=== PATIENT | male | born 1940 | race Two or more races ===

== ENCOUNTER 2016-07-23 08:42 | Inpatient (IN) | payer MEDICARE, BC ==
[2016-07-23] MEDS ORDERED: METOCLOPRAMIDE 5 MG/ML 2 ML VIAL IVP STA (09:00)
[2016-07-23] MEDS ORDERED: SODIUM CHLORIDE 0.9% 1,000 ML IV STA ×2 (09:00)
[2016-07-23] MEDS ORDERED: RX INFO: IV CONTRAST WAS GIVEN 1 EACH MISC MISCELLANE PRN (09:03)
--- NOTE | 2016-07-23 09:05 | ED ---
General Adult HPI - General Chief complaint: Nausea/Vomiting/Diarrhea Stated complaint: vomiting Time Seen by Provider: 07/23/16 08:54 Source: patient, family, RN notes reviewed Mode of arrival: wheelchair Limitations: language barrier - History of Present Illness Initial comments: 76 yo male presents to the Er with cc of vomiting. Patient is mentally handicapped per the sister he is at baseline. He has been having vomiting for the past 12 hours or so. He just continues to vomit. Patient is unable to explain or He is unable to give a history. He did recently undergo surgery of the abdomen for a possible obstruction. This was done on July 16. They deny any fever in him. He has had sweating with this. As well as pickups. The sister states that he just continues to vomit so she did not know what else that she could do for him.Patient denies any recent fever, chills, shortness of breath, chest pain, back pain, numbness or tingling, dysuria or hematuria, constipation or diarrhea, headaches or visual changes, or any other current symptoms. - Related Data Home Medications Medication Instructions Recorded Confirmed Ensure 1 can PO AC-TID 07/23/16 07/23/16 Previous Rx's Medication Instructions Recorded Amoxicillin 1,000 mg PO BID #36 cap 07/16/16 Clarithromycin [Biaxin] 500 mg PO BID #18 tab 07/16/16 Pantoprazole [Protonix] 40 mg PO AC-BID #60 tablet. 07/16/16 Allergies Allergy/AdvReac Type Severity Reaction Status Date / Time No Known Allergies Allergy Verified 07/23/16 09:48 Review of Systems ROS Statement: Those systems with pertinent positive or pertinent negative responses have been documented in the HPI. ROS Other: All systems not noted in ROS Statement are negative. Past Medical History Past Medical History: Pneumonia Additional Past Medical History / Comment(s): ALLERGIES/\\SEASONAL SISTER DENIES ANY HEALTH PROBLEMS History of Any Multi-Drug Resistant Organisms: None Reported Additional Past Surgical History / Comment(s): TOENAILS, "gastric outlet surgery " Past Anesthesia/Blood Transfusion Reactions: No Reported Reaction Additional Past Anesthesia/Blood Transfusion Reaction / Comment(s): NEVER HAD ANESTHESIA Past Psychological History: No Psychological Hx Reported Additional Psychological History / Comment(s): EXCITABLE. Smoking Status: Never smoker Past Alcohol Use History: None Reported Past Drug Use History: None Reported - Past Family History Father Family Medical History: CVA/TIA Additional Family Medical History / Comment(s): "HEART DISEASE" General Exam - General Exam Comments Initial Comments: General: The patient is awake and alert, in no distress, and does not appear acutely ill. Eye: Pupils are equal, round and reactive to light, extra-ocular movements are intact; there is normal conjunctiva bilaterally. No signs of icterus. Ears, nose, mouth and throat: There are moist mucous membranes. Neck: The neck is supple, there is no tenderness. Cardiovascular: There is a regular rate and rhythm. No murmur, rub or gallop is appreciated. Respiratory: Lungs are clear to auscultation, respirations are non-labored, breath sounds are equal. No wheezes, stridor, rales, or rhonchi. Gastrointestinal: Soft, distended, non-tender abdomen without masses or organomegaly noted. There is no rebound or guarding present. No CVA tenderness. Bowel sounds are unremarkable. Back: There is no tenderness to palpation in the midline. There is no obvious deformity. No rashes noted. Musculoskeletal: Normal ROM, no tenderness, There is no pedal edema. There is no calf tenderness or swelling. Sensation intact. Pulses equal bilaterally 2+. Neurological: CN II-XII intact, There are no obvious motor or sensory deficits. Coordination appears grossly intact. Speech is normal. Skin: Skin is warm and dry and no rashes or lesions are noted. Psychiatric: Cooperative, appropriate mood & affect, normal judgment. Limitations: language barrier Course Vital Signs 07/23/16 08:46 Temperature 97.3 F L Pulse Rate 94 Respiratory 17 Rate Blood Pressure 132/76 O2 Sat by Pulse 93 L Oximetry EKG Findings - EKG Comments: EKG Findings:: (Rhythm with premature supraventricular complexes, ventricular rate 79, creatinine 170, QRS duration 96 Medical Decision Making - Medical Decision Making 76-year-old male presents to emergency room chief complaint of nausea vomiting with a distended abdomen. At this time patient's x-rays reviewed that does show bilateral pneumonia and patient was recently admitted to the hospital. We will start the patient on hospital for pneumonia protocol. Patient is also found to have a obstruction on CT NG tube was placed and Dr. Murphy was contacted regarding Dr. jefferson's patient. This time we will admit and consult Dr. Hyman per Dr. Banuelos's request. The patient and family were discussed with this plan and they are in agreement. We will consult our Lithuanian who was seen patient has prominent consult in the past as well as Dr. Rodriguez R4 Dr. Ozuna for medical management. - Lab Data Result diagrams: 07/23/16 09:10 07/23/16 09:10 Lab Results 07/23/16 07/23/16 07/23/16 Range/Units 09:10 09:10 09:10 WBC 14.8 H (3.8-10.6) k/uL RBC 5.01 (4.30-5.90) m/uL Hgb 15.3 (13.0-17.5) gm/dL Hct 44.5 (39.0-53.0) % MCV 88.8 (80.0-100.0) fL MCH 30.5 (25.0-35.0) pg MCHC 34.4 (31.0-37.0) g/dL RDW 13.5 (11.5-15.5) % Plt Count 318 (150-450) k/uL Neutrophils % 90 % Lymphocytes % 3 % Monocytes % 4 % Eosinophils % 1 % Basophils % 1 % Neutrophils # 13.3 H (1.3-7.7) k/uL Lymphocytes # 0.5 L (1.0-4.8) k/uL Monocytes # 0.7 (0-1.0) k/uL Eosinophils # 0.1 (0-0.7) k/uL Basophils # 0.2 (0-0.2) k/uL PT (9.0-12.0) sec INR (<1.1) APTT (22.0-30.0) sec Sodium 129 L (137-145) mmol/L Potassium 4.4 (3.5-5.1) mmol/L Chloride 89 L (98-107) mmol/L Carbon Dioxide 27 (22-30) mmol/L Anion Gap 13 mmol/L BUN 34 H (9-20) mg/dL Creatinine 0.70 (0.66-1.25) mg/dL Est GFR (MDRD) Af Amer >60 (>60 ml/min/1.73 sqM) Est GFR (MDRD) Non-Af >60 (>60 ml/min/1.73 sqM) Glucose 137 H (74-99) mg/dL Plasma Lactic Acid Yonathan (0.7-2.0) mmol/L Calcium 9.6 (8.4-10.2) mg/dL Magnesium 2.2 (1.6-2.3) mg/dL Total Bilirubin 0.9 (0.2-1.3) mg/dL AST 34 (17-59) U/L ALT 36 (21-72) U/L Alkaline Phosphatase 73 (38-126) U/L Total Creatine Kinase 48 L (55-170) U/L CK-MB (CK-2) 1.3 (0.0-2.4) ng/mL CK-MB (CK-2) Rel Index 2.7 Troponin I <0.012 (0.000-0.034) ng/mL Total Protein 6.9 (6.3-8.2) g/dL Albumin 4.0 (3.5-5.0) g/dL Amylase 61 (30-110) U/L Lipase 201 (23-300) U/L 07/23/16 07/23/16 Range/Units 09:10 09:10 WBC (3.8-10.6) k/uL RBC (4.30-5.90) m/uL Hgb (13.0-17.5) gm/dL Hct (39.0-53.0) % MCV (80.0-100.0) fL MCH (25.0-35.0) pg MCHC (31.0-37.0) g/dL RDW (11.5-15.5) % Plt Count (150-450) k/uL Neutrophils % % Lymphocytes % % Monocytes % % Eosinophils % % Basophils % % Neutrophils # (1.3-7.7) k/uL Lymphocytes # (1.0-4.8) k/uL Monocytes # (0-1.0) k/uL Eosinophils # (0-0.7) k/uL Basophils # (0-0.2) k/uL PT 11.9 (9.0-12.0) sec INR 1.2 (<1.1) APTT 23.8 (22.0-30.0) sec Sodium (137-145) mmol/L Potassium (3.5-5.1) mmol/L Chloride (98-107) mmol/L Carbon Dioxide (22-30) mmol/L Anion Gap mmol/L BUN (9-20) mg/dL Creatinine (0.66-1.25) mg/dL Est GFR (MDRD) Af Amer (>60 ml/min/1.73 sqM) Est GFR (MDRD) Non-Af (>60 ml/min/1.73 sqM) Glucose (74-99) mg/dL Plasma Lactic Acid Yonathan 1.3 (0.7-2.0) mmol/L Calcium (8.4-10.2) mg/dL Magnesium (1.6-2.3) mg/dL Total Bilirubin (0.2-1.3) mg/dL AST (17-59) U/L ALT (21-72) U/L Alkaline Phosphatase (38-126) U/L Total Creatine Kinase (55-170) U/L CK-MB (CK-2) (0.0-2.4) ng/mL CK-MB (CK-2) Rel Index Troponin I (0.000-0.034) ng/mL Total Protein (6.3-8.2) g/dL Albumin (3.5-5.0) g/dL Amylase (30-110) U/L Lipase (23-300) U/L - Radiology Data Radiology results: report reviewed, image reviewed Disposition Clinical Impression: Small bowel obstruction, Pneumonia of both lower lobes, Nausea and vomiting Disposition: ADMITTED IP TO [facility] Condition: Stable Time of Disposition: 11:24 Decision Date: 07/23/16 Decision Time: 11:25
[2016-07-23 09:23] LABS: Basophils # (A) 0.2 k/uL (0-0.2); Basophils % (A) 1 %; CH 31.2; CHCM 35.3; Eosinophils # (A) 0.1 k/uL (0-0.7); Eosinophils % (A) 1 %; HCT 44.5 % (39.0-53.0); HDW 2.61; HGB 15.3 gm/dL (13.0-17.5); Luc # (Auto) 0.15; Luc % (Auto) 1; Lymphocytes # (A) 0.5 k/uL (1.0-4.8); Lymphocytes % (A) 3 %; MCH 30.5 pg (25.0-35.0); MCHC 34.4 g/dL (31.0-37.0); MCV 88.8 fL (80.0-100.0); Mean Platelet Volume 7.4; Monocytes # (A) 0.7 k/uL (0-1.0); Monocytes % (A) 4 %; Neutrophils # (A) 13.3 k/uL (1.3-7.7); Neutrophils % (A) 90 %; RBC 5.01 m/uL (4.30-5.90); RDW 13.5 % (11.5-15.5); WBC 14.8 k/uL (3.8-10.6); WBC (Perox) 15.28
[2016-07-23 09:32] LABS: INR 1.2 (<1.1); Partial Thromboplastin Time 23.8 sec (22.0-30.0); Prothrombin Time 11.9 sec (9.0-12.0)
[2016-07-23 09:34] LABS: ALT 36 U/L (21-72); AST 34 U/L (17-59); Alkaline Phosphatase 73 U/L (38-126); Amylase 61 U/L (30-110); Anion Gap 13 mmol/L; Blood Urea Nitrogen 34 mg/dL (9-20); Calcium 9.6 mg/dL (8.4-10.2); Carbon Dioxide 27 mmol/L (22-30); Chloride 89 mmol/L (98-107); Glucose 137 mg/dL (74-99); Magnesium 2.2 mg/dL (1.6-2.3); Non-African American GFR(MDRD) >60 (>60 ml/min/1.73 sqM); Potassium 4.4 mmol/L (3.5-5.1); Sodium 129 mmol/L (137-145); Total Bilirubin 0.9 mg/dL (0.2-1.3); Total Protein 6.9 g/dL (6.3-8.2)
[2016-07-23 09:43] LABS: Creatine Kinase 48 U/L (55-170)
--- NOTE | 2016-07-23 09:53 | XR ---
EXAMINATION TYPE: XR chest 2V DATE OF EXAM: 07/23/2016 9:47 AM COMPARISON: NONE HISTORY: Chest pain FINDINGS: There is bilateral infiltrate. No pneumothorax. Heart problems of normal. Upper mediastinum is promin ent there is ectasia of the aorta. Hypertrophic and degenerative change spine.. IMPRESSION: 1. Bilateral lower lobe infiltrate. 2. Upper mediastinal prominence. Consider follow-up CT scan.
[2016-07-23 09:56] LABS: Creatine Kinase MB 1.3 ng/mL (0.0-2.4); Troponin I <0.012 ng/mL (0.000-0.034)
[2016-07-23] MEDS ORDERED: LEVOFLOXACIN 750MG-D5W PMX 750 MG in DEXTROSE/WATER 1 150ML.BAG IVPB STA (10:03)
[2016-07-23] MEDS ORDERED: PIPERACILLIN-TAZOBACTAM 3.375 GM in DEXTROSE/WATER 1 50ML.BAG IVPB STA (10:17)
--- NOTE | 2016-07-23 10:41 | CT ---
EXAMINATION TYPE: CT abdomen pelvis w con DATE OF EXAM: 07/23/2016 10:10 AM COMPARISON: Upper GI July 13, 2016 HISTORY: Vomiting and hiccups status post abdominal obstruction surgery last week CONTRAST: CT scan of the abdomen and pelvis is performed without oral but with IV Contrast, patient injected wi th 100 mL of Omnipaque 300. FINDINGS: LUNG BASES: Respiratory motion artifact is noted making evaluation suboptimal. Bilateral gynecomastia is present. Mild cardiomegaly is identified. Right lower lobe dependent atelectatic change is seen. LIVER/GB: Gallbladder has distended margins without surrounding inflammatory change or CT demonstrate s intraluminal gallstones. PANCREAS: No significant abnormality is seen. SPLEEN: No significant abnormality is seen. ADRENALS: No significant abnormality is seen. KIDNEYS: A few small simple appearing cysts are scattered throughout the left kidney. Bladder is some what poorly distended and thus suboptimally evaluated. BOWEL: There is new fluid filled dilated visualized esophagus. There is new fluid filled dilated stom ach extending into fluid-filled dilated duodenal sweep. Duodenal jejunal junction is not at cranial l evel of the gastric antrum, proximal duodenum is fluid-filled and dilated in the right mid to lower a bdomen. There is slight twisting of the mesentery in the right midabdomen seen on coronal images. Und erlying malrotation is not excluded. There is linear density at level of gastric antrum felt to reflect sutures seen best on axial image 4 4 consistent with partial gastrectomy. Dilated fluid-filled jejunal loop extends near this level in t he right upper quadrant near hepatic flexure appears to have direct connection with stomach system wi th patient's history of gastrojejunostomy. This appears contiguous with the dilated fluid-filled duod enal sweep and proximal jejunum. Occupying the remainder of the abdomen and pelvis is nondilated small and large bowel loops.. Fecal m aterial is seen in nondistended colon. SMA/SMV relationship is preserved. PROSTATE/SEMINAL VESICLES: Prostate gland is heterogeneous in appearance since felt slightly enlarged in size, clinical correlation for BPH is advised. Adjacent pelvic phleboliths are seen. LYMPH NODES: No greater than 1cm abdominal or pelvic lymph nodes are appreciated. OSSEOUS STRUCTURES: Multilevel spurring in the spine is present. OTHER: No significant additional abnormality is seen. IMPRESSION: High-grade small bowel obstruction in the proximal jejunum without outlet to the distal bowel clearly identified. There is appearance on CT there is closed-loop of stomach to duodenal sweep into duodenum which then goes back into stomach (gastrojejunostomy). I do not see efferent loop well at all. 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 Corre lation with surgical history advised. Nasogastric tube placement and surgical consultation advised. Case discussed with ER physician via telephone at time of dictation.
[2016-07-23] MEDS ORDERED: LORazepam 2 MG/ML SYRINGE IV STA (10:47)
[2016-07-23] MEDS ORDERED: PNEUMONIA PROTOCOL UTILIZED 1 EACH MISC PO PRN (11:25)
[2016-07-23] MEDS ORDERED: IPRATROPIUM-ALBUTEROL 3 ML NEB INHALATION PRN (11:25)
[2016-07-23] MEDS ORDERED: LORazepam 2 MG/ML SYRINGE IV PRN (11:27)
[2016-07-23] MEDS ORDERED: HYDROcodone/APAP 5-325MG 1 EACH TAB PO PRN (11:27)
[2016-07-23] MEDS ORDERED: ONDANSETRON 4 MG/2 ML VIAL IVP PRN (11:27)
[2016-07-23] MEDS ORDERED: NALOXONE 0.4 MG/ML 1 ML VIAL IV PRN (11:27)
[2016-07-23] MEDS ORDERED: PANTOPRAZOLE 40 MG/10 ML VIAL IVP STA (11:28)
--- NOTE | 2016-07-23 11:38 | P.GSHP ---
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 His sister called yesterday because he hadn't been eating or drinking well. I recommended decreasing his diet back to clear and full liquids and go to the ER if he continues to have problems. She brought him in today. He had x-ray done along with CAT scan suggestive of a obstruction. An NG tube is been placed. - Review of Systems All systems: negative Past Medical History Past Medical History: Pneumonia Additional Past Medical History / Comment(s): ALLERGIES/\\SEASONAL SISTER DENIES ANY HEALTH PROBLEMS History of Any Multi-Drug Resistant Organisms: None Reported Additional Past Surgical History / Comment(s): TOENAILS, gastrojejunostomy for outlet obstruction Past Anesthesia/Blood Transfusion Reactions: No Reported Reaction Additional Past Anesthesia/Blood Transfusion Reaction / Comment(s): NEVER HAD ANESTHESIA Past Psychological History: No Psychological Hx Reported Additional Psychological History / Comment(s): EXCITABLE. Smoking Status: Never smoker Past Alcohol Use History: None Reported Past Drug Use History: None Reported - Past Family History Father Family Medical History: CVA/TIA Additional Family Medical History / Comment(s): "HEART DISEASE" Medications and Allergies Home Medications Medication Instructions Recorded Confirmed Type Ensure 1 can PO AC-TID 07/23/16 07/23/16 History Allergies Allergy/AdvReac Type Severity Reaction Status Date / Time No Known Allergies Allergy Verified 07/23/16 09:48 Surgical - Exam Osteopathic Statement: *. No significant issues noted on an osteopathic structural exam other than those noted in the History and Physical/Consult. Vital Signs Temp Pulse Resp BP Pulse Ox 97.3 F L 94 17 132/76 93 L 07/23/16 08:46 07/23/16 08:46 07/23/16 08:46 07/23/16 08:46 07/23/16 08:46 - General no distress, other (Fairly somnolent) - ENT other (Dry mucous membranes) - Neck trachea midline, no lymphadectomy - Respiratory normal respiratory effort, clear to auscultation absent: wheezing - Cardiovascular Rhythm: regular - Abdomen Abdomen: soft, tender (Incisional), bowel sounds (Hypoactive), surgical scars ( Healing well without cellulitis) Results - Labs 07/23/16 09:10 12/26/16 09:10 Abnormal Lab Results - Last 24 Hours (Table) 07/23/16 07/23/16 07/23/16 Range/Units 09:10 09:10 09:10 WBC 14.8 H (3.8-10.6) k/uL Neutrophils # 13.3 H (1.3-7.7) k/uL Lymphocytes # 0.5 L (1.0-4.8) k/uL Sodium 129 L (137-145) mmol/L Chloride 89 L (98-107) mmol/L BUN 34 H (9-20) mg/dL Glucose 137 H (74-99) mg/dL Total Creatine Kinase 48 L (55-170) U/L Diabetes panel 07/23/16 Range/Units 09:10 Sodium 129 L (137-145) mmol/L Potassium 4.4 (3.5-5.1) mmol/L Chloride 89 L (98-107) mmol/L Carbon Dioxide 27 (22-30) mmol/L BUN 34 H (9-20) mg/dL Creatinine 0.70 (0.66-1.25) mg/dL Glucose 137 H (74-99) mg/dL Calcium 9.6 (8.4-10.2) mg/dL AST 34 (17-59) U/L ALT 36 (21-72) U/L Alkaline Phosphatase 73 (38-126) U/L Total Protein 6.9 (6.3-8.2) g/dL Albumin 4.0 (3.5-5.0) g/dL Calcium panel 07/23/16 Range/Units 09:10 Calcium 9.6 (8.4-10.2) mg/dL Albumin 4.0 (3.5-5.0) g/dL Pituitary panel 07/23/16 Range/Units 09:10 Sodium 129 L (137-145) mmol/L Potassium 4.4 (3.5-5.1) mmol/L Chloride 89 L (98-107) mmol/L Carbon Dioxide 27 (22-30) mmol/L BUN 34 H (9-20) mg/dL Creatinine 0.70 (0.66-1.25) mg/dL Glucose 137 H (74-99) mg/dL Calcium 9.6 (8.4-10.2) mg/dL Adrenal panel 07/23/16 Range/Units 09:10 Sodium 129 L (137-145) mmol/L Potassium 4.4 (3.5-5.1) mmol/L Chloride 89 L (98-107) mmol/L Carbon Dioxide 27 (22-30) mmol/L BUN 34 H (9-20) mg/dL Creatinine 0.70 (0.66-1.25) mg/dL Glucose 137 H (74-99) mg/dL Calcium 9.6 (8.4-10.2) mg/dL Total Bilirubin 0.9 (0.2-1.3) mg/dL AST 34 (17-59) U/L ALT 36 (21-72) U/L Alkaline Phosphatase 73 (38-126) U/L Total Protein 6.9 (6.3-8.2) g/dL Albumin 4.0 (3.5-5.0) g/dL - Imaging CT scan - abdomen: report reviewed, image reviewed Assessment and Plan (1) Nausea and vomiting Status: Acute (2) Small bowel obstruction Status: Acute (3) Hyponatremia Status: Acute Plan: NG tube decompression. DVT and ulcer prophylaxis. Medical evaluation for hyponatremia. We'll notify Dr. Villasenor of the admission and he will assume care in the morning.
[2016-07-23] MEDS: SODIUM CHLORIDE 0.9% 1,000 ML IV SCH ×2 (12:52→23:49)
[2016-07-23] MEDS: PIPERACILLIN-TAZOBACTAM 3.375 GM in DEXTROSE/WATER 1 50ML.BAG IVPB SCH (21:16)
[2016-07-23] MEDS: PANTOPRAZOLE 40 MG/10 ML VIAL IVP SCH (23:49)
[2016-07-24] MEDS ORDERED: RX INFO: IV CONTRAST WAS GIVEN 1 EACH MISC MISCELLANE PRN (05:05)
[2016-07-24 05:15] LABS: Glucose,Whole Blood 82 mg/dL (75-99)
[2016-07-24 05:31] LABS: Basophils % (A) 0 %; CH 30.6; CHCM 34.8; Eosinophils # (A) 0.1 k/uL (0-0.7); Eosinophils % (A) 1 %; HCT 41.7 % (39.0-53.0); HDW 2.64; HGB 13.8 gm/dL (13.0-17.5); Luc # (Auto) 0.18; Luc % (Auto) 2; Lymphocytes # (A) 0.9 k/uL (1.0-4.8); Lymphocytes % (A) 9 %; MCH 29.1 pg (25.0-35.0); MCV 88.3 fL (80.0-100.0); Mean Platelet Volume 7.2; Monocytes # (A) 0.7 k/uL (0-1.0); Monocytes % (A) 7 %; Neutrophils # (A) 8.5 k/uL (1.3-7.7); Neutrophils % (A) 81 %; RBC 4.72 m/uL (4.30-5.90); RDW 13.3 % (11.5-15.5); WBC 10.4 k/uL (3.8-10.6); WBC (Perox) 11.07
[2016-07-24 05:44] LABS: ALT 37 U/L (21-72); AST 32 U/L (17-59); Alkaline Phosphatase 64 U/L (38-126); Amylase 57 U/L (30-110); Anion Gap 13 mmol/L; Blood Urea Nitrogen 25 mg/dL (9-20); Calcium 8.6 mg/dL (8.4-10.2); Carbon Dioxide 25 mmol/L (22-30); Chloride 98 mmol/L (98-107); Creatine Kinase 334 U/L (55-170); Glucose 93 mg/dL (74-99); INR 1.3 (<1.1); Magnesium 1.9 mg/dL (1.6-2.3); Non-African American GFR(MDRD) >60 (>60 ml/min/1.73 sqM); Partial Thromboplastin Time 24.5 sec (22.0-30.0); Phosphorous 3.5 mg/dL (2.5-4.5); Potassium 3.8 mmol/L (3.5-5.1); Prothrombin Time 12.4 sec (9.0-12.0); Sodium 136 mmol/L (137-145); Total Bilirubin 0.8 mg/dL (0.2-1.3); Total Protein 5.8 g/dL (6.3-8.2)
--- NOTE | 2016-07-24 05:48 | CT ---
EXAMINATION TYPE: CT brain wo con DATE OF EXAM: 07/24/2016 5:41 AM COMPARISON: NONE HISTORY: r/o stroke CT DLP: 1341 mGycm Automated exposure control for dose reduction was used. FINDINGS: There is cerebral cortical atrophy. There is no mass effect nor midline shift. There is no sign of in tracranial hemorrhage. Calvarium is intact. IMPRESSION: Cerebral atrophy. No acute intracranial abnormality.
--- NOTE | 2016-07-24 09:58 | P.PN ---
Subjective Principal diagnosis: Bowel obstruction Patient was recently hospitalized for a gastric outlet obstruction. He underwent a gastrojejunostomy. He came back to the hospital with nausea and vomiting and a diminished appetite. He is mentally impaired so that history is obtained primarily from the chart. A nasogastric tube was placed with a large volume of bilious output. Currently he denies pain. T-max 99.1. White blood cell count 10.4. Objective - Vital Signs Vital signs: Vital Signs Temp 99.1 F 07/24/16 08:00 Pulse 80 07/24/16 08:00 Resp 18 07/24/16 08:00 BP 129/74 07/24/16 08:00 Pulse Ox 96 07/24/16 08:00 Intake & Output 07/23/16 07/24/16 07/24/16 18:59 06:59 18:59 Intake Total 400 Output Total 3300 200 Balance -3300 200 Weight 77.111 kg Intake: IV 400 Sodium Chloride 0.9% 1, 400 000 ml @ 100 mls/hr IV . Q10H PAMELLA Rx#:[id number] Output: Gastric Drainage 3300 200 Other: Voiding Method Toilet # Voids 1 - Exam Abdomen: Soft, mild distention, nontender, incision healed nicely - Labs CBC & Chem 7: 07/24/16 05:19 07/24/16 05:19 Labs: Abnormal Lab Results - Last 24 Hours (Table) 07/24/16 07/24/16 07/24/16 Range/Units 05:19 05:19 05:19 Neutrophils # 8.5 H (1.3-7.7) k/uL Lymphocytes # 0.9 L (1.0-4.8) k/uL PT 12.4 H (9.0-12.0) sec Sodium 136 L (137-145) mmol/L BUN 25 H (9-20) mg/dL Creatine Kinase 334 H (55-170) U/L Total Protein 5.8 L (6.3-8.2) g/dL Albumin 3.2 L (3.5-5.0) g/dL Assessment and Plan (1) Nausea and vomiting Narrative/Plan: Continue nasogastric tube to suction. Repeat abdominal x-rays tomorrow. Repeat lab work tomorrow. Status: Acute
[2016-07-24] MEDS: SODIUM CHLORIDE 0.9% 1,000 ML IV SCH ×3 (10:40→23:38)
[2016-07-24] MEDS: LEVOFLOXACIN 750MG-D5W PMX 750 MG in DEXTROSE/WATER 1 150ML.BAG IVPB SCH (10:41)
[2016-07-24] MEDS: PANTOPRAZOLE 40 MG/10 ML VIAL IVP SCH ×2 (10:46→20:36)
--- NOTE | 2016-07-24 12:08 | P.HPIM ---
History of Present Illness H&P Date: 07/24/16 Chief Complaint: Vomiting This is a 76-year-old gentleman with past medical history significant for developmental delay/mental retardation who was recently discharged from the hospital after he underwent a laparoscopic loop gastrojejunostomy secondary to gastric outlet obstruction. Patient was discharged home in a stable condition. He is a very poor historian and most of the history was obtained by chart review and nursing staff report. Apparently he was having worsening epigastric discomfort and nausea for the past several days. Yesterday he was noted to have persistent vomiting and he was brought into the emergency room and was found to have evidence of small bowel obstruction on computed tomography scan of the abdomen. He was admitted to the hospital initially under surgery but overnight, patient noticed to have a left facial droop and a code stroke was called. Computed tomography scan of the brain was unremarkable. By my memory, I don't remember patient having any facial droop when I saw him last time it hospital. No family members at bedside to confirm. Nursing staff are not sure if this is old or new area patient otherwise does not have any focal deficit. He has good strength throughout. Speech is normal. Review of Systems Review of system: 14 points review of systems were obtained and were negative except to what were mentioned in the HPI. Past Medical History Past Medical History: Pneumonia Additional Past Medical History / Comment(s): ALLERGIES/\\SEASONAL SISTER DENIES ANY HEALTH PROBLEMS History of Any Multi-Drug Resistant Organisms: None Reported Additional Past Surgical History / Comment(s): TOENAILS, gastrojejunostomy for outlet obstruction Past Anesthesia/Blood Transfusion Reactions: No Reported Reaction Additional Past Anesthesia/Blood Transfusion Reaction / Comment(s): NEVER HAD ANESTHESIA Past Psychological History: No Psychological Hx Reported Additional Psychological History / Comment(s): EXCITABLE. Smoking Status: Never smoker Past Alcohol Use History: None Reported Past Drug Use History: None Reported - Past Family History Father Family Medical History: CVA/TIA Additional Family Medical History / Comment(s): "HEART DISEASE" Medications and Allergies Home Medications Medication Instructions Recorded Confirmed Type Ensure 1 can PO AC-TID 07/23/16 07/23/16 History Allergies Allergy/AdvReac Type Severity Reaction Status Date / Time No Known Allergies Allergy Verified 07/23/16 09:48 Physical Exam Vitals: Vital Signs Temp Pulse Pulse Pulse Resp BP BP 07/24/16 08:00 99.1 F 80 18 12/27/16 07:44 07/24/16 07:15 64 18 07/24/16 07:00 70 18 07/24/16 06:45 70 07/24/16 06:30 98.5 F 66 18 07/24/16 06:14 67 20 07/24/16 06:06 81 20 07/24/16 05:00 68 16 07/24/16 02:27 98.8 F 89 18 07/23/16 20:00 16 07/23/16 18:00 98.8 F 94 16 07/23/16 15:32 99 F 88 15 124/72 07/23/16 15:07 15 07/23/16 14:21 98.3 F 91 16 134/72 07/23/16 13:46 98.4 F 94 17 119/66 07/23/16 13:14 98.3 F 07/23/16 12:57 95 18 120/65 07/23/16 12:12 99.0 F 88 15 124/72 BP Pulse Ox 07/24/16 08:00 129/74 96 07/24/16 07:44 96 07/24/16 07:15 119/64 98 07/24/16 07:00 123/64 97 07/24/16 06:45 118/69 97 07/24/16 06:30 119/73 96 07/24/16 06:14 110/64 98 07/24/16 06:06 111/70 95 07/24/16 05:00 119/68 97 07/24/16 02:27 127/83 96 07/23/16 20:00 07/23/16 18:00 126/72 96 07/23/16 15:32 95 07/23/16 15:07 07/23/16 14:21 94 L 07/23/16 13:46 94 L 07/23/16 13:14 07/23/16 12:57 94 L 07/23/16 12:12 95 Intake and Output 07/23/16 07/24/16 07/24/16 22:59 06:59 14:59 Intake Total 400 Output Total 200 Balance 400 -200 Intake: IV 400 Sodium Chloride 0.9% 1, 400 000 ml @ 100 mls/hr IV . Q10H [facility] Rx#:[id number] Output: Gastric Drainage 200 Other: Voiding Method Toilet Toilet # Voids 1 Weight 77.111 kg 77.111 kg Patient Weight 07/25/16 06:59 Weight 77.111 kg General: The patient is awake and alert, NG tube in place Eye: extra-ocular movements are intact; there is normal conjunctiva bilaterally. . Neck: The neck is supple, there is no tenderness or JVD. Cardiovascular: Normal S1-S2, no S3-S4, no murmurs. Respiratory: Lungs clear to auscultation bilaterally with no wheezes rhonchi or rales. Gastrointestinal: Abdomen is soft, nontender, nondistended, with no organomegaly. . Musculoskeletal: Normal ROM, no tenderness, There is no pedal edema. Neurological: There are no obvious motor or sensory deficits. Speech is normal. There is left-sided facial droop Skin: Skin is warm and dry and no rashes or lesions are noted. Results CBC & Chem 7: 07/24/16 05:19 07/24/16 05:19 Labs: Abnormal Lab Results - Last 24 Hours (Table) 07/24/16 07/24/16 07/24/16 Range/Units 05:19 05:19 05:19 Neutrophils # 8.5 H (1.3-7.7) k/uL Lymphocytes # 0.9 L (1.0-4.8) k/uL PT 12.4 H (9.0-12.0) sec Sodium 136 L (137-145) mmol/L BUN 25 H (9-20) mg/dL Creatine Kinase 334 H (55-170) U/L Total Protein 5.8 L (6.3-8.2) g/dL Albumin 3.2 L (3.5-5.0) g/dL Thrombosis Risk Factor Assmnt - Choose All That Apply Any of the Below Risk Factors Present?: Yes Each Factor Represents 1 point: History of prior major surgery (<1month) Other Risk Factors: Yes Each Risk Factor Represents 2 Points: Age 61-74 years, Laparoscopic surgery Other congenital or acquired thrombophilia - If yes, enter type in comment: No Thrombosis Risk Factor Assessment Total Risk Factor Score: 5 Thrombosis Risk Factor Assessment Level: High Risk Assessment and Plan Plan: 1. Small bowel obstruction with recent exploratory laparoscopy and loop gastrojejunostomy approximately 10 days ago: NG tube in place. Patient was seen and evaluated by surgery. Plan for conservative management. Repeat abdominal x-ray in the morning. Continue IV fluid hydration. Pain control and antiemetics. 2. Left facial droop with suspected CVA versus Sotelo's palsy: Computed tomography scan of the brain showed no acute intracranial process. Neurology consulted for further evaluation. I would obtain echocardiogram of the heart and carotid Doppler. I would also start the patient on steroids intravenously empirically. And he was to start aspirin as patient is nothing by mouth and has an NG tube in place 3. Bibasilar pneumonia currently: on IV Levaquin and Zosyn. No documented fevers. Will finish 8 days of antibiotic. Pulmonology consulted for further evaluation as x-ray infiltrate may represent atelectasis rather than pneumonia and patient is a very poor historian. 4. Developmental delay/mental retardation 5. DVT prophylaxis with subcu heparin
[2016-07-24] MEDS: PIPERACILLIN-TAZOBACTAM 3.375 GM in DEXTROSE/WATER 1 50ML.BAG IVPB SCH ×3 (12:24→23:38)
--- NOTE | 2016-07-24 13:24 | P.CNPUL ---
History of Present Illness Consult date: 07/24/16 Requesting physician: Denton Barker Reason for consult: pneumonia Chief complaint: Nausea vomiting and diarrhea History of present illness: This is a 76-year-old white male with history of multiple medical problems including mental retardation, developmental delay, patient was recently discharged from the hospital after he underwent laparoscopic loop gastrojejunostomy because of gastric outlet obstruction. Patient was readmitted yesterday with mostly symptoms of epigastric discomfort, nausea and vomiting for the last several days. Workup in the ER included a CT of the abdomen which was consistent with small bowel obstruction. Patient was admitted , seen by general surgery on consultation, and conservative measures including nasogastric tube decompression is being favored at present. In the meantime patient had a chest x-ray which showed evidence of multifocal infiltrates involving mostly bilateral lower lobes, and most likely consistent with aspiration. In the meantime the patient was placed on proper antibiotics including Levaquin and Zosyn. Considering his abnormal chest x-ray, this consult was initiated. Patient is an extremely poor historian, and he is mentally retarded. Review of Systems Cannot be obtained because of the mental status Past Medical History Past Medical History: Pneumonia Additional Past Medical History / Comment(s): ALLERGIES/\\SEASONAL SISTER DENIES ANY HEALTH PROBLEMS History of Any Multi-Drug Resistant Organisms: None Reported Additional Past Surgical History / Comment(s): TOENAILS, gastrojejunostomy for outlet obstruction Past Anesthesia/Blood Transfusion Reactions: No Reported Reaction Additional Past Anesthesia/Blood Transfusion Reaction / Comment(s): NEVER HAD ANESTHESIA Past Psychological History: No Psychological Hx Reported Additional Psychological History / Comment(s): EXCITABLE. Smoking Status: Never smoker Past Alcohol Use History: None Reported Past Drug Use History: None Reported - Past Family History Father Family Medical History: CVA/TIA Additional Family Medical History / Comment(s): "HEART DISEASE" Medications and Allergies Home Medications Medication Instructions Recorded Confirmed Type Ensure 1 can PO AC-TID 07/23/16 07/23/16 History Allergies Allergy/AdvReac Type Severity Reaction Status Date / Time No Known Allergies Allergy Verified 07/23/16 09:48 Physical Exam Vitals: Vital Signs Temp Pulse Pulse Pulse Resp BP BP 07/24/16 12:00 80 16 129/74 07/24/16 08:00 99.1 F 80 18 07/24/16 07:44 07/24/16 07:15 64 18 07/24/16 07:00 70 18 07/24/16 06:45 70 07/24/16 06:30 98.5 F 66 18 07/24/16 06:14 67 20 07/24/16 06:06 81 20 07/24/16 05:00 68 16 07/24/16 02:27 98.8 F 89 18 07/23/16 20:00 16 07/23/16 18:00 98.8 F 94 16 07/23/16 15:32 99 F 88 15 124/72 07/23/16 15:07 15 07/23/16 14:21 98.3 F 91 16 134/72 07/23/16 13:46 98.4 F 94 17 119/66 BP Pulse Ox 07/24/16 12:00 96 07/24/16 08:00 129/74 96 07/24/16 07:44 96 07/24/16 07:15 119/64 98 07/24/16 07:00 123/64 97 07/24/16 06:45 118/69 97 07/24/16 06:30 119/73 96 07/24/16 06:14 110/64 98 07/24/16 06:06 111/70 95 07/24/16 05:00 119/68 97 07/24/16 02:27 127/83 96 07/23/16 20:00 07/23/16 18:00 126/72 96 07/23/16 15:32 95 07/23/16 15:07 07/23/16 14:21 94 L 07/23/16 13:46 94 L Intake and Output 07/23/16 07/24/16 07/24/16 22:59 06:59 14:59 Intake Total 400 Output Total 200 Balance 400 -200 Intake: IV 400 Sodium Chloride 0.9% 1, 400 000 ml @ 100 mls/hr IV . Q10H [facility] Rx#:[id number] Output: Gastric Drainage 200 Other: Voiding Method Toilet Toilet # Voids 1 Weight 77.111 kg 77.111 kg Patient Weight 07/25/16 06:59 Weight 77.111 kg Physical Exam: Revealed a 76-year-old white male in no form of respiratory distress. HEENT:[Neck is supple.] [No neck masses.] [No thyromegaly.] [No JVD.] Nasogastric tube is noted to be functioning and bilious material noted in the nasogastric tube. Chest: [Crackles at the bases were noted bilaterally.] Cardiac Exam: [Normal S1 and S2, no S3 gallop, no murmur.] Abdomen: [Slightly distended, nontender, no megaly, no rebound, no guarding, normal bowel sounds.] Extremities: [No clubbing, no edema, no cyanosis.] Neurological Exam: [Left-sided facial droop is noted, patient is mentally retarded Results - Laboratory Findings CBC and BMP: 07/24/16 05:19 07/24/16 05:19 PT/INR, D-dimer PT 12.4 sec (9.0-12.0) H 07/24/16 05:19 INR 1.3 (<1.1) 07/24/16 05:19 Abnormal lab findings: Abnormal Labs 07/24/16 07/24/16 07/24/16 05:19 05:19 05:19 Neutrophils # 8.5 H Lymphocytes # 0.9 L PT 12.4 H Sodium 136 L BUN 25 H Creatine Kinase 334 H Total Protein 5.8 L Albumin 3.2 L - Diagnostic Findings Chest x-ray: image reviewed (Chest x-ray is suggestive of aspiration pneumonia involving both lower lobes.) Assessment and Plan Plan: Impression: 1 acute bowel obstruction in a patient who had recent exploratory laparoscopy and loop gastrojejunostomy about 10 days ago. 2 bibasilar pneumonia most likely aspiration in nature, patient seems to be on proper antibiotics for now. Hence we will recommend that we continue the same antibiotics, patient is presently nothing by mouth. 3 history of developmental delay and mental retardation Recommendation: I fully agree with the present treatment plan, not much to be added at this point, we'll continue to follow. Time with Patient: Greater than 30
--- NOTE | 2016-07-24 13:29 | US ---
EXAMINATION TYPE: US carotid duplex BILAT DATE OF EXAM: 07/24/2016 1:14 PM COMPARISON: NONE CLINICAL HISTORY: Possible Stroke. EXAM MEASUREMENTS: RIGHT: Peak Systolic Velocity (PSV) cm/sec ----- Right CCA: 84.2 ----- Right ICA: 74.9 ----- Right ECA: 118.9 ICA/CCA ratio: 0.9 RIGHT: End Diastole cm/sec ----- Right CCA: 14.4 ----- Right ICA: 24.5 ----- Right ECA: 13.9 LEFT: Peak Systolic Velocity (PSV) cm/sec ----- Left CCA: 75.3 ----- Left ICA: 75.6 ----- Left ECA: 97.0 ICA/CCA ratio: 1.0 LEFT: End Diastole cm/sec ----- Left CCA: 10.7 ----- Left ICA: 18.9 ----- Left ECA: 5.9 VERTEBRALS (direction of flow): Right Vertebral: Antegrade Left Vertebral: Antegrade IMPRESSION: 1. No significant hemodynamics stenosis. 2. Intimal thickening and mild atherosclerotic changes.
--- NOTE | 2016-07-24 14:01 | XR ---
EXAMINATION TYPE: XR chest 2V DATE OF EXAM: 07/24/2016 1:55 PM COMPARISON: 07/23/2016 HISTORY: Pneumonia FINDINGS: Subsegmental changes involving both lower lobes appear to be improved. NG tube seen with the tip at t he level of the distal esophagus. Degenerative change of the spine noted. No pneumothorax or overt failure. Heart size stable. IMPRESSION: 1. Improving lower lobe infiltrate 2. NG tube seen with the tip only at the level of the distal esophagus
[2016-07-24] MEDS: methylPREDNISolone SOD SUCCI 40 MG/ML 1 ML VIAL IV SCH ×2 (14:42→20:30)
--- NOTE | 2016-07-24 17:23 | ECHOF ---
Referral Reason:Possible stroke MEASUREMENTS -------- HEIGHT: 172.7 cm WEIGHT: 77.1 kg BP: IVSd: 1.1 cm (0.6 - 1.1) LVIDd: 3.5 cm (3.9 - 5.3) LVPWd: 1.1 cm (0.6 - 1.1) IVSs: 1.2 cm LVIDs: 2.2 cm LVPWs: 1.3 cm Ao Diam: 3.7 cm (2.0 - 3.7) AV Cusp: 1.5 cm (1.5 - 2.6) LA Diam: 2.5 cm (2.7 - 3.8) MV E Juarez: 0.51 m/s MV DecT: 373 ms MV A Juarez: 0.70 m/s MV E/A Ratio: 0.73 RAP: 5.00 mmHg RVSP: 13.56 mmHg FINDINGS -------- Sinus rhythm. This was a technically adequate study. There is mild concentric left ventricular hypertrophy. Overall left ventricular systolic function is low-normal with, an EF between 50 - 55 %. The right ventricle is normal in size. The left atrial size is normal. The right atrial size is normal. There is mild aortic valve sclerosis. There is no evidence of aortic regurgitation. Mild mitral annular calcification present. Mild mitral regurgitation is present. Mild tricuspid regurgitation present. There is no evidence of pulmonary hypertension. The right ventricular systolic pressure, as measured by Doppler, is 13.56mmHg. There is no pulmonic regurgitation present. The aortic root size is normal. There is no pericardial effusion. CONCLUSIONS -------- 1. There is mild concentric left ventricular hypertrophy. 2. Overall left ventricular systolic function is low-normal with, an EF between 50 - 55 %. 3. There is mild aortic valve sclerosis. 4. Mild mitral annular calcification present. 5. Mild mitral regurgitation is present. 6. Mild tricuspid regurgitation present. 7. There is no evidence of pulmonary hypertension. 8. The right ventricular systolic pressure, as measured by Doppler, is 13.56mmHg. BRAND PLANNER: Alondra Vanegas RDCS
[2016-07-24] MEDS: HEPARIN SODIUM,PORCINE 5,000 UNIT/ML 1 ML VIAL SQ SCH (20:30)
[2016-07-25 06:30] LABS: Basophils % (A) 0 %; CH 30.8; CHCM 34.7; Eosinophils % (A) 0 %; HCT 40.8 % (39.0-53.0); HDW 2.58; HGB 13.7 gm/dL (13.0-17.5); Luc # (Auto) 0.06; Luc % (Auto) 2; Lymphocytes # (A) 0.4 k/uL (1.0-4.8); Lymphocytes % (A) 11 %; MCH 29.9 pg (25.0-35.0); MCHC 33.6 g/dL (31.0-37.0); MCV 89.1 fL (80.0-100.0); Mean Platelet Volume 6.5; Monocytes # (A) 0.2 k/uL (0-1.0); Monocytes % (A) 4 %; Neutrophils # (A) 3.1 k/uL (1.3-7.7); Neutrophils % (A) 83 %; RBC 4.58 m/uL (4.30-5.90); RDW 13.4 % (11.5-15.5); WBC 3.7 k/uL (3.8-10.6)
[2016-07-25 06:32] LABS: ALT 44 U/L (21-72); AST 30 U/L (17-59); Alkaline Phosphatase 61 U/L (38-126); Anion Gap 18 mmol/L; Blood Urea Nitrogen 37 mg/dL (9-20); Calcium 8.7 mg/dL (8.4-10.2); Carbon Dioxide 20 mmol/L (22-30); Chloride 102 mmol/L (98-107); Cholesterol 162 mg/dL (<200); Glucose 120 mg/dL (74-99); HDL Cholesterol 48 mg/dL (40-60); Magnesium 2.2 mg/dL (1.6-2.3); Non-African American GFR(MDRD) >60 (>60 ml/min/1.73 sqM); Potassium 3.7 mmol/L (3.5-5.1); Sodium 140 mmol/L (137-145); Total Bilirubin 0.8 mg/dL (0.2-1.3); Total Protein 5.8 g/dL (6.3-8.2); Triglycerides 62 mg/dL (<150)
--- NOTE | 2016-07-25 09:07 | XR ---
EXAMINATION TYPE: XR abdomen 2V DATE OF EXAM: 07/25/2016 8:54 AM COMPARISON: 07/23/2016 HISTORY: Pain TECHNIQUE: Single supine KUB image of the abdomen is obtained. FINDINGS: NG tube is noted. Bowel gas pattern nonspecific. Air is seen distally within the colon with prominent loops of bowel in the left upper quadrant. Calcifications in pelvis noted. Arthropathy of the hips. IMPRESSION: 1. NG tube now appears in good position with a nonspecific gas pattern.
[2016-07-25] MEDS: LEVOFLOXACIN 750MG-D5W PMX 750 MG in DEXTROSE/WATER 1 150ML.BAG IVPB SCH (09:09)
[2016-07-25] MEDS: HEPARIN SODIUM,PORCINE 5,000 UNIT/ML 1 ML VIAL SQ SCH ×2 (09:09→20:26)
--- NOTE | 2016-07-25 09:41 | CONS ---
DATE OF CONSULTATION: 07/24/2016 CHIEF COMPLAINT: Transient ischemic attack. HISTORY OF PRESENT ILLNESS: Mr. Hurtado is a 76-year-old male who is being evaluated today on 07/24/16 by the neurology service per the request of Dr. Barker for a transient ischemic attack. The patient was brought into [facility] Emergency Room yesterday with complaints of abdominal pain and vomiting. He was recently diagnosed with a gastric outlet obstruction, which was surgically corrected recently by Dr. Villasenor. An NG tube was placed and the patient was admitted for further workup and management. During his hospitalization, the nursing staff noticed a right facial droop but the patient did not have any weakness in the upper or lower extremities. The patient does have history of developmental delay and is not a good historian. A stat CT scan of the brain was done, which showed no acute abnormalities. Generalized atrophy was seen. A carotid Doppler was done, which showed no hemodynamically significant stenosis. His CBC was normal. His comprehensive metabolic profile showed hyponatremia at 129, which did improve to 136 with IV hydration. His BUN was 34 on admission and this did improve to 25 after IV hydration. His troponin was negative. The patient was not on any antiplatelet medications at home. At the time of my evaluation, he is sitting up in his bed and appears to be in no acute distress. His nephew was at bedside and he reports that the patient does have mild right facial weakness at his baseline, but this was worse earlier today. PAST MEDICAL HISTORY: Recurrent pneumonia, recent gastric outlet obstruction status post surgery, history of developmental delay. SOCIAL HISTORY: There is no history of any tobacco, alcohol or drug use. FAMILY HISTORY: Positive for strokes and heart disease. REVIEW OF SYSTEMS: CONSTITUTIONAL: Negative. EYES: Negative. ENT: Negative. CARDIOVASCULAR: Negative. RESPIRATORY: Negative. NEUROLOGICAL: As mentioned above. GASTROINTESTINAL: As mentioned above. GENITOURINARY: Negative. PSYCHIATRIC: As mentioned above. DERMATOLOGICAL: Negative. MUSCULOSKELETAL: Negative. ENDOCRINE: Negative. PHYSICAL EXAM: Vital signs show a temperature of 98.7, pulse 73, respirations 16, blood pressure 132/69. GENERAL APPEARANCE: The patient is a well-developed, elderly male who appears to be in no acute distress. HEENT: Normocephalic, atraumatic. Right facial droop is seen. Extraocular muscles are intact. Neck is supple with no masses felt. CARDIOVASCULAR: Regular rate and rhythm. ABDOMEN: Nontender, nondistended. Extremities showed no edema or clubbing. NEUROLOGICAL EXAM: The patient is awake and oriented to person and place. He could not recall the year. Strength appears to be full in all 4 extremities. Sensory exam was normal to light touch in all 4 extremities. Right facial droop is noticed on cranial nerve testing. Mild postural tremors are seen. No seizure-like activity is noticed. IMPRESSION: 1. Transient ischemic attack. 2. Right facial weakness. 3. History of developmental delay. 4. Abdominal pain with history of recent abdominal surgery. RECOMMENDATIONS: The patient did have a transient episode of worsening right facial weakness. As mentioned above, according to the family, he does have a chronic history of right facial droop but this did worsen for a transient amount of time. I do recommend starting antiplatelet therapy with aspirin 81 mg daily if this is cleared by Surgery. I will consult Dr. Villasenor for this as this he did care for the patient regarding the gastric outlet obstruction. His carotid Doppler was reviewed and it showed no hemodynamically significant stenosis and his CT scan of the brain showed no acute abnormalities. I will order a fasting lipid panel, EEG and serum homocysteine level. Continue IV hydration as tolerated. Continue neuro checks. I will continue to follow with you. Further recommendations to follow. Thank you for allowing me to participate in the care of your patient. If you have any questions, please feel free to contact me.
--- NOTE | 2016-07-25 11:25 | P.PN ---
Subjective Patient is doing well today. He still complaining of epigastric discomfort. He is having significant output from the NG tube Objective - Vital Signs Vital signs: Vital Signs Temp 98 F 07/25/16 08:00 Pulse 71 07/25/16 08:00 Resp 18 07/25/16 08:00 BP 130/64 07/25/16 08:00 Pulse Ox 97 07/25/16 08:00 Intake & Output 07/24/16 07/25/16 07/25/16 18:59 06:59 18:59 Intake Total 800 950 Output Total 800 100 Balance 0 850 Weight 77.111 kg 77.2 kg Intake: IV 800 800 Sodium Chloride 0.9% 1, 800 800 000 ml @ 100 mls/hr IV . Q10H [facility] Rx#:[id number] Intake, IV Titration 50 Amount Piperacillin-Tazobactam 3 50 .375 gm In Dextrose/Water 1 50ml.bag @ 12.5 mls/hr IVPB Q8HR [facility] Rx#: [id number] Oral 100 Output: Gastric Drainage 800 Urine 100 Other: # Voids 2 1 - Exam General: The patient is awake and alert, in no distress Eye: there is normal conjunctiva bilaterally. Neck: The neck is supple, there is no JVD. Cardiovascular: Normal S1-S2, no S3-S4, no murmurs. Respiratory: Lungs clear to auscultation bilaterally Gastrointestinal: Abdomen with mild tenderness to palpation Musculoskeletal: There is no pedal edema. Neurological:. Speech is normal. Skin: Skin is warm and dry - Labs CBC & Chem 7: 07/25/16 05:50 07/25/16 05:50 Labs: Abnormal Lab Results - Last 24 Hours (Table) 07/25/16 07/25/16 Range/Units 05:50 05:50 WBC 3.7 L (3.8-10.6) k/uL Lymphocytes # 0.4 L (1.0-4.8) k/uL Carbon Dioxide 20 L (22-30) mmol/L BUN 37 H (9-20) mg/dL Glucose 120 H (74-99) mg/dL Total Protein 5.8 L (6.3-8.2) g/dL Albumin 3.1 L (3.5-5.0) g/dL LDL Cholesterol, Calc 102 H (0-99) mg/dL Assessment and Plan Plan: 1. Small bowel obstruction with recent exploratory laparoscopy and loop gastrojejunostomy approximately 10 days ago: NG tube in place. Patient was seen and evaluated by surgery. Plan for EGD today. Continue IV fluid hydration. Pain control and antiemetics. 2. Right facial droop with suspected TIA: Seen and evaluated by neurology. 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 Computed tomography scan of the brain showed no acute intracranial process. Echocardiogram of the heart and carotid Doppler normal for his age. We will need to start aspirin awaiting clearance from surgery. 3. Bibasilar pneumonia currently: started on IV Levaquin and Zosyn. I would switch Zosyn to Flagyl given worsening leukopenia. Will finish 8 days of antibiotic. Pulmonology consulted, appreciate recommendation 4. Developmental delay/mental retardation 5. DVT prophylaxis with subcu heparin
--- NOTE | 2016-07-25 11:43 | P.PN ---
Subjective Principal diagnosis: Acute small bowel obstruction This is a 76-year-old white male with history of multiple medical problems including mental retardation, developmental delay, patient was recently discharged from the hospital after he underwent laparoscopic loop gastrojejunostomy because of gastric outlet obstruction. Patient was readmitted yesterday with mostly symptoms of epigastric discomfort, nausea and vomiting for the last several days. Workup in the ER included a CT of the abdomen which was consistent with small bowel obstruction. Patient was admitted , seen by general surgery on consultation, and conservative measures including nasogastric tube decompression is being favored at present. In the meantime patient had a chest x-ray which showed evidence of multifocal infiltrates involving mostly bilateral lower lobes, and most likely consistent with aspiration. In the meantime the patient was placed on proper antibiotics including Levaquin and Zosyn. Considering his abnormal chest x-ray, this consult was initiated. Patient is an extremely poor historian, and he is mentally retarded. Patient was reevaluated today on 07/25/2016, seems to be a bit better, x-rays of the abdomen showed nonspecific gas pattern, patient has no abdominal pain, I recently he has less distention, and no significant abdominal findings. His last chest x-ray was suggestive of aspiration pneumonia, and he remains on antibiotics in the form of Levaquin and Zosyn. Labs were reviewed, relatively normal CBC noted. And relatively normal basic metabolic profile was also noted. However the patient is developing a bit of anion gap metabolic acidosis. Objective - Vital Signs Vital signs: Vital Signs Temp 98 F 07/25/16 08:00 Pulse 71 07/25/16 08:00 Resp 18 07/25/16 08:00 BP 130/64 07/25/16 08:00 Pulse Ox 97 07/25/16 08:00 Intake & Output 07/24/16 07/25/16 07/25/16 18:59 06:59 18:59 Intake Total 800 950 Output Total 800 100 Balance 0 850 Weight 77.111 kg 77.2 kg Intake: IV 800 800 Sodium Chloride 0.9% 1, 800 800 000 ml @ 100 mls/hr IV . Q10H [facility] Rx#:[id number] Intake, IV Titration 50 Amount Piperacillin-Tazobactam 3 50 .375 gm In Dextrose/Water 1 50ml.bag @ 12.5 mls/hr IVPB Q8HR [facility] Rx#: [id number] Oral 100 Output: Gastric Drainage 800 Urine 100 Other: # Voids 2 1 - Exam Physical Exam: Revealed a 76-year-old white male in no form of respiratory distress. HEENT:[Neck is supple.] [No neck masses.] [No thyromegaly.] [No JVD.] Nasogastric tube is noted to be functioning and bilious material noted in the nasogastric tube. Chest: [Crackles at the bases were noted bilaterally.] Cardiac Exam: [Normal S1 and S2, no S3 gallop, no murmur.] Abdomen: [Slightly distended, nontender, no megaly, no rebound, no guarding, normal bowel sounds.] Extremities: [No clubbing, no edema, no cyanosis.] Neurological Exam: [Left-sided facial droop is noted, patient is mentally retarded - Labs CBC & Chem 7: 07/25/16 05:50 07/25/16 05:50 Labs: Abnormal Lab Results - Last 24 Hours (Table) 07/25/16 07/25/16 Range/Units 05:50 05:50 WBC 3.7 L (3.8-10.6) k/uL Lymphocytes # 0.4 L (1.0-4.8) k/uL Carbon Dioxide 20 L (22-30) mmol/L BUN 37 H (9-20) mg/dL Glucose 120 H (74-99) mg/dL Total Protein 5.8 L (6.3-8.2) g/dL Albumin 3.1 L (3.5-5.0) g/dL LDL Cholesterol, Calc 102 H (0-99) mg/dL Assessment and Plan Plan: Impression: 1 acute bowel obstruction in a patient who had recent exploratory laparoscopy and loop gastrojejunostomy about 10 days ago. 2 bibasilar pneumonia most likely aspiration in nature, patient seems to be on proper antibiotics for now. Hence we will recommend that we continue the same antibiotics, patient is presently nothing by mouth. 3 history of developmental delay and mental retardation Recommendation: Continue present course of treatment, general surgery is handling the nasogastric tube issue on the bowel obstruction, and I will continue antibiotics as ordered for his presumptive aspiration pneumonia. Not quite ready for discharge planning at this point. Time with Patient: Less than 30
[2016-07-25] MEDS: PANTOPRAZOLE 40 MG/10 ML VIAL IVP SCH ×2 (11:59→20:26)
[2016-07-25] MEDS ORDERED: IV FLUID CONTINUATION 200 ML IV ONE (13:03)
[2016-07-25] MEDS ORDERED: PROPOFOL 10 MG/ML 20 ML VIAL IV ONE (13:39)
--- NOTE | 2016-07-25 13:57 | P.OP ---
Date of Procedure: 07/25/16 Preoperative Diagnosis: Small bowel obstruction Postoperative Diagnosis: Patent gastrojejunostomy Patent pylorus Bilious fluid and stomach Procedure(s) Performed: EGD Implants: Anesthesia: MAC Surgeon: Delano Villasenor Pathology: none sent Condition: stable Disposition: PACU Indications for Procedure: Operative Findings: Description of Procedure: The patient's placed on the endoscopy table in the lateral position. He received IV sedation. The gastroscope some placed oropharynx and passed into the esophagus and into the stomach. There was a small amount of bilious fluid in the stomach. This was aspirated. Next the scope was then placed through the pylorus. In the first and second portion of duodenum was visualized. There was no evidence of obstruction in the duodenum. There is bilious fluid in the duodenum. The scope was then brought back into the gastrojejunostomy. Gastrojejunostomy appeared to be patent. There is bilious fluid in the gastrojejunostomy. The proximal limb of the gastrojejunostomy was entered. The scope was then brought back and the distal end could not be entered easily. At this point the scope was retroflexed and the remainder some appeared normal. The GE junction was at 40 cm. The distal esophagus. Normal. In the proximal esophagusAppeared Normal. The scope was withdrawn for patient.
[2016-07-25] MEDS ORDERED: IV FLUID CONTINUATION 1,000 ML IV ONE (14:11)
--- NOTE | 2016-07-25 15:19 | P.PN ---
Subjective Principal diagnosis: TIA This 76-year-old male continue be evaluated by the neurology service for a transient ischemic attack. His initial complaints were that of abdominal pain and vomiting. He has a recent diagnosis of gastric outlet obstruction which been surgically corrected. He has been G-tube currently placed and continues evaluation for this. A right facial droop was noticed during his hospitalization. A stat CT of the brain was done and showed no acute intracranial abnormalities. Carotid Doppler showed no hemodynamically significant stenosis. It's time my exam he is resting comfortably in bed, he does complain of some abdominal pain. An EEG has been ordered. His lipid panel did show a total cholesterol of 162, and LDL 102, and HDL of 48 and a triglyceride level of 62. He is also now being treated for bilateral basilar pneumonia, likely aspiration. Objective - Vital Signs Vital signs: Vital Signs Temp 98.1 F 07/25/16 11:53 Pulse 74 07/25/16 11:53 Resp 16 07/25/16 11:53 BP 124/69 07/25/16 11:53 Pulse Ox 94 L 07/25/16 11:53 Intake & Output 07/24/16 07/25/16 07/25/16 18:59 06:59 18:59 Intake Total 800 950 200 Output Total 800 100 Balance 0 850 200 Weight 77.111 kg 77.2 kg 77.2 kg Intake: IV 800 800 200 Sodium Chloride 0.9% 1, 800 800 000 ml @ 100 mls/hr IV . Q10H [facility] Rx#:[id number] Intake, IV Titration 50 Amount Piperacillin-Tazobactam 3 50 .375 gm In Dextrose/Water 1 50ml.bag @ 12.5 mls/hr IVPB Q8HR [facility] Rx#: [id number] Oral 100 Output: Gastric Drainage 800 Urine 100 Other: # Voids 2 1 - Constitutional General appearance: Present: no acute distress - EENT Eyes: Present: PERRLA. Absent: abnormal pupil, ptosis ENT: Present: hearing grossly normal - Neck Neck: Present: normal ROM. Absent: rigidity - Respiratory Respiratory: negative: prolonged expiration, prolonged inspiration - Cardiovascular Rhythm: regular - Gastrointestinal Gastrointestinal Comment(s): NG tube in place General gastrointestinal: Present: tenderness. Absent: distended - Neurologic Neurologic Comment(s): He is awake and oriented to person and place. This is unchanged. There is no lateralizing weakness. There is no sensory deficit in any extremity. Facial droop remains. No seizure-like activity is seen. Very mild postural tremors are also seen. - Labs CBC & Chem 7: 07/25/16 05:50 07/25/16 05:50 Labs: Abnormal Lab Results - Last 24 Hours (Table) 07/25/16 07/25/16 Range/Units 05:50 05:50 WBC 3.7 L (3.8-10.6) k/uL Lymphocytes # 0.4 L (1.0-4.8) k/uL Carbon Dioxide 20 L (22-30) mmol/L BUN 37 H (9-20) mg/dL Glucose 120 H (74-99) mg/dL Total Protein 5.8 L (6.3-8.2) g/dL Albumin 3.1 L (3.5-5.0) g/dL LDL Cholesterol, Calc 102 H (0-99) mg/dL Assessment and Plan (1) Transient ischemic attack (TIA) Status: Acute (2) Facial droop Status: Chronic (3) Nausea and vomiting Status: Acute (4) Mental retardation Status: Chronic (5) Pneumonia Status: Acute Plan: Given the transient nature of his complaint , he likely did suffer transient ischemic attack. We have already recommended 81 mg of aspirin daily if cleared by surgery. We would also recommend an antihyperlipidemic agent, preferred would be Lipitor 10 mg to start. We will also wait to initiate this. Continue the rest of workup and treatment for his gastrointestinal issues. Barring any unforeseen abnormalities on his EEG, he would be cleared from a neurological standpoint. If serum homocysteine levels return abnormal, may consider supplementation folic acid. I have performed a history and physical on the above patient. I have reviewed the above note, and agree.
[2016-07-25 15:44] LABS: ALT 42 U/L (21-72); AST 31 U/L (17-59); Alkaline Phosphatase 55 U/L (38-126); Anion Gap 12 mmol/L; Blood Urea Nitrogen 41 mg/dL (9-20); Calcium 8.6 mg/dL (8.4-10.2); Carbon Dioxide 25 mmol/L (22-30); Chloride 104 mmol/L (98-107); Glucose 106 mg/dL (74-99); Magnesium 2.2 mg/dL (1.6-2.3); Non-African American GFR(MDRD) >60 (>60 ml/min/1.73 sqM); Phosphorous 4.3 mg/dL (2.5-4.5); Potassium 3.8 mmol/L (3.5-5.1); Sodium 141 mmol/L (137-145); Total Bilirubin 0.5 mg/dL (0.2-1.3); Total Protein 5.7 g/dL (6.3-8.2); Triglycerides 83 mg/dL (<150)
[2016-07-25] MEDS ORDERED: POTASSIUM CHLORIDE 10 MEQ, LIDOCAINE 2% INJ 10 MG in SODIUM CHLORIDE 0.9% 100 ML IVPB ONE (17:00)
[2016-07-25] MEDS: metroNIDAZOLE-NS PMX 500 MG in SALINE 1 100ML.BAG IVPB SCH ×2 (17:02→23:42)
[2016-07-25] MEDS: SODIUM CHLORIDE 0.9% 1,000 ML IV SCH ×2 (17:02→23:43)
[2016-07-25] MEDS: methylPREDNISolone SOD SUCCI 40 MG/ML 1 ML VIAL IV SCH (18:40)
[2016-07-25] MEDS: PIPERACILLIN-TAZOBACTAM 3.375 GM in DEXTROSE/WATER 1 50ML.BAG IVPB SCH (18:40)
--- NOTE | 2016-07-25 19:22 | EEG ---
DATE OF SERVICE: 07/25/2016 REASON FOR TESTING: Transient ischemic attack DESCRIPTION OF THE PROCEDURE: This EEG was performed using a 21-channel digital electroencephalograph, following international 10-20 system. DESCRIPTION OF THE RECORDING: From the beginning of the tracing, and with the patient's eyes closed, the background rhythm was mostly consisting of 9 to 10 Hz alpha frequency in the posterior occipital leads. No obvious asymmetry is seen. Photic stimulation was performed with a minimal driving response seen. No pathological waves were elicited. Hyperventilation was not performed. Occasional movement artifacts are seen. The patient remains awake throughout the tracing. No epileptiform discharges were seen. His EKG lead showed a regular rate and rhythm. INTERPRETATION: This awake EEG can be considered within normal limits. There was no asymmetry seen. No epileptiform discharges were noticed. The absence of epileptiform discharges does not rule out the diagnosis of epilepsy; therefore clinical correlation is recommended.
[2016-07-26 07:15] LABS: Ionized Calcium 5.1 mg/dL (4.5-5.3)
[2016-07-26 07:21] LABS: Anion Gap 9 mmol/L; Blood Urea Nitrogen 40 mg/dL (9-20); Calcium 8.4 mg/dL (8.4-10.2); Carbon Dioxide 25 mmol/L (22-30); Chloride 110 mmol/L (98-107); Glucose 96 mg/dL (74-99); Magnesium 2.4 mg/dL (1.6-2.3); Non-African American GFR(MDRD) >60 (>60 ml/min/1.73 sqM); Phosphorous 3.1 mg/dL (2.5-4.5); Potassium 3.9 mmol/L (3.5-5.1); Sodium 144 mmol/L (137-145)
[2016-07-26 07:45] LABS: Basophils % (A) 0 %; CH 30.5; CHCM 33.7; Eosinophils % (A) 0 %; HCT 39.5 % (39.0-53.0); HDW 2.64; HGB 12.8 gm/dL (13.0-17.5); Luc # (Auto) 0.15; Luc % (Auto) 2; Lymphocytes # (A) 0.9 k/uL (1.0-4.8); Lymphocytes % (A) 13 %; MCH 29.6 pg (25.0-35.0); MCHC 32.5 g/dL (31.0-37.0); MCV 91.1 fL (80.0-100.0); Mean Platelet Volume 7.2; Monocytes # (A) 0.5 k/uL (0-1.0); Monocytes % (A) 8 %; Neutrophils # (A) 5.2 k/uL (1.3-7.7); Neutrophils % (A) 77 %; RBC 4.33 m/uL (4.30-5.90); RDW 13.5 % (11.5-15.5); WBC 6.7 k/uL (3.8-10.6); WBC (Perox) 6.64
[2016-07-26] MEDS: metroNIDAZOLE-NS PMX 500 MG in SALINE 1 100ML.BAG IVPB SCH ×3 (08:37→23:36)
[2016-07-26] MEDS: PANTOPRAZOLE 40 MG/10 ML VIAL IVP SCH ×2 (08:37→21:15)
[2016-07-26] MEDS: HEPARIN SODIUM,PORCINE 5,000 UNIT/ML 1 ML VIAL SQ SCH ×2 (08:38→21:15)
[2016-07-26] MEDS: SODIUM CHLORIDE 0.9% 1,000 ML IV SCH ×2 (08:38→17:34)
--- NOTE | 2016-07-26 09:46 | P.PN ---
Addendum entered and electronically signed by Eleni Kulkarni PAC 07/26/16 11:09 : Discussed case with surgical nurse practitioner. They're planning to do an exploratory laparotomy with lysis of adhesions tomorrow. Dietitian has been consulted for PPN to be started Original Note: Subjective Patient lying in bed comfortably. No complaints. EGD completed yesterday showing patent gastrojejunostomy and patent pylorus with Bilious fluid in stomach. Patient did have 2 BMs yesterday Objective - Vital Signs Vital signs: Vital Signs Temp 96.7 F L 07/26/16 08:00 Pulse 58 L 07/26/16 08:00 Resp 16 07/26/16 08:00 BP 147/72 07/26/16 08:00 Pulse Ox 96 07/26/16 08:00 Intake & Output 07/25/16 07/26/16 07/26/16 18:59 06:59 18:59 Intake Total 200 0 Output Total 400 500 Balance -200 -500 Weight 77.2 kg 69.6 kg Intake: IV 200 Oral 0 Output: Urine 400 500 Other: # Voids 1 1 - Exam Head normocephalic Neck supple Lungs clear to auscultation bilaterally no wheezing or crackles Heart regular rate and rhythm S1-S2, no rub or gallop Abdomen is soft nontender nondistended positive bowel sounds no hepatosplenomegaly. NG tube in place greenish fluid present Extremities no edema Neuro awake and alert - Labs CBC & Chem 7: 07/26/16 06:25 07/26/16 06:25 Labs: Abnormal Lab Results - Last 24 Hours (Table) 07/25/16 07/26/16 07/26/16 Range/Units 15:09 06:25 06:25 Hgb 12.8 L (13.0-17.5) gm/dL Lymphocytes # 0.9 L (1.0-4.8) k/uL Chloride 110 H (98-107) mmol/L BUN 41 H 40 H (9-20) mg/dL Glucose 106 H (74-99) mg/dL Magnesium 2.4 H (1.6-2.3) mg/dL Total Protein 5.7 L (6.3-8.2) g/dL Albumin 3.0 L 2.7 L (3.5-5.0) g/dL Assessment and Plan Plan: 1. Small bowel obstruction with recent exploratory laparoscopy and loop gastrojejunostomy approximately 10 days ago: NG tube in place. Patient was seen and evaluated by surgery. Status post EGD showing patent gastrojejunostomy , patent pylorus and bilious fluid in stomach. Continue IV fluid hydration. Pain control and antiemetics. Patient had 2 BMs. Awaiting further surgical recommendations. 2. Right facial droop with suspected TIA: Seen and evaluated by neurology. 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 Computed tomography scan of the brain showed no acute intracranial process. Echocardiogram of the heart and carotid Doppler normal for his age. We will need to start aspirin awaiting clearance from surgery. Neurology following 3. Bibasilar pneumonia currently: started on IV Levaquin and Zosyn. Zosyn switched to Flagyl yesterday given worsening leukopenia. Will finish 8 days of antibiotic. Pulmonology consulted, appreciate recommendation 4. Developmental delay/mental retardation 5. DVT prophylaxis with subcu heparin 6. Leukopenia improved after switching Zosyn and Flagyl
[2016-07-26] MEDS ORDERED: LIDOCAINE 2% INJ 20 MG/ML (20 ML MDV) ONE (10:11)
[2016-07-26] MEDS ORDERED: LIDOCAINE 2% INJ 20 MG/ML SQ ONE (10:31)
--- NOTE | 2016-07-26 11:14 | P.PN ---
Subjective Patient is a 76-year-old male with past medical history of gastric outlet obstruction status post exploratory laparotomy with loop gastrojejunostomy on . Patient admitted with complaints of abdominal distention, nausea and vomiting, and decreased oral intake with evidence of small bowel obstruction on computed tomography scan. Yesterday patient underwent an EGD with evidence of a patent gastrojejunostomy and patent pylorus with findings of bilious fluid in the gastrojejunostomy; the distal end of the gastrojejunostomy could not be entered easily. Patient is currently evaluated at bedside where NG tube has been reinserted and is draining bilious fluid. Patient is a poor historian but appears in no apparent distress. Urine output adequate. Patient is afebrile. No evidence of leukocytosis. Urine output adequate. Objective - Vital Signs Vital signs: Vital Signs Temp 96.7 F L 07/26/16 08:00 Pulse 58 L 07/26/16 08:00 Resp 16 07/26/16 08:00 BP 147/72 07/26/16 08:00 Pulse Ox 96 07/26/16 08:00 Intake & Output 07/25/16 07/26/16 07/26/16 18:59 06:59 18:59 Intake Total 200 0 Output Total 400 500 Balance -200 -500 Weight 77.2 kg 69.6 kg Intake: IV 200 Oral 0 Output: Urine 400 500 Other: # Voids 1 1 - Exam GENERAL: Pt awake and alert, well-appearing, well-nourished, and in no acute distress. ENT: Dry mucous membranes. LUNGS: Breath sounds clear to auscultation bilaterally. No wheezes, rales, or rhonchi. HEART: Heart S1, S2, no S3 or S4. Regular rate and rhythm. No murmurs, rubs or gallops. ABDOMEN: Soft, mild tenderness, nondistended, hypoactive bowel sounds. No guarding, no rebound. No masses or organomegaly appreciated. Surgical incision well-healed. - Labs CBC & Chem 7: 07/26/16 06:25 07/26/16 06:25 Labs: Abnormal Lab Results - Last 24 Hours (Table) 07/25/16 07/26/16 07/26/16 Range/Units 15:09 06:25 06:25 Hgb 12.8 L (13.0-17.5) gm/dL Lymphocytes # 0.9 L (1.0-4.8) k/uL Chloride 110 H (98-107) mmol/L BUN 41 H 40 H (9-20) mg/dL Glucose 106 H (74-99) mg/dL Magnesium 2.4 H (1.6-2.3) mg/dL Total Protein 5.7 L (6.3-8.2) g/dL Albumin 3.0 L 2.7 L (3.5-5.0) g/dL Assessment and Plan Plan: Impression: 1. Small bowel obstruction status post EGD with findings of patent gastrojejunostomy, patent pylorus, and bilious fluid in stomach. 2. History of gastric outlet obstruction status post exploratory laparoscopy and loop gastrojejunostomy on 07/10/2016. 3. Mild malnutrition secondary to poor oral intake secondary to small bowel obstruction. Plan: Patient will undergo exploratory laparotomy with lysis of adhesions and possible small bowel resection tomorrow. Patient is scheduled for PICC line insertion with dietary consult for TPN infusion. Continue NPO status. Continue NG tube to suction for small bowel decompression. Continue IV fluids. Continue supportive treatment and pain management. Continue GI and DVT prophylaxis. Continue to follow with medical service and consultants. Repeat CBC and electrolytes in a.m. The above impression and plan have been discussed and directed by Dr. Villasenor. Charissa AGUIRRE acting as scribe for Dr. Villasenor.
--- NOTE | 2016-07-26 11:55 | IR ---
PICC LINE PLACEMENT: HISTORY: TPN PROCEDURE: Ultrasound and fluoroscopic guidance of PICC line placement. COMPLICATIONS: None ANESTHESIA: 1. 1% Lidocaine locally. FINDINGS/TECHNIQUE: The procedure was explained to the patient. The risks, complications, benefits and alternatives were discussed and any questions were answered. Informed consent was obtained. The patient was placed supine on the fluoroscopic table and prepped and draped in the usual sterile fash ion. Utilizing a 21 gauge needle and sonographic and fluoroscopic guidance, access in the right bas ilic vein was achieved and there is placement of a 0.018 guidewire. The vein is patent. A 5-F. urena th was placed over the guidewire. The guidewire and dilator were removed and a 5-F. Double lumen PIC C line was placed through the sheath with the tip at the level of the SVC. The sheath was removed, t he catheter was flushed and sutured into position. The patient was stable throughout the procedure a nd remained stable upon discharge from the Department of Radiology. The vein puncture was patent under ultrasound. A barrientos scale image was obtained to document patency of the vein punctured. All elements of the maximal barrier technique were utilized. FLUOROSCOPY TIME: 0.1 minute IMPRESSION: Successful PICC double lumen line placement under ultrasound and fluoroscopic guidance.
[2016-07-26] MEDS: LEVOFLOXACIN 750MG-D5W PMX 750 MG in DEXTROSE/WATER 1 150ML.BAG IVPB SCH (12:15)
[2016-07-26] MEDS ORDERED: POTASSIUM CHLORIDE 10 MEQ in WATER FOR INJECTION 1 100ML.BAG IVPB ONE (13:00)
--- NOTE | 2016-07-26 13:20 | P.PN ---
Subjective Principal diagnosis: Acute small bowel obstruction This is a 76-year-old white male with history of multiple medical problems including mental retardation, developmental delay, patient was recently discharged from the hospital after he underwent laparoscopic loop gastrojejunostomy because of gastric outlet obstruction. Patient was readmitted yesterday with mostly symptoms of epigastric discomfort, nausea and vomiting for the last several days. Workup in the ER included a CT of the abdomen which was consistent with small bowel obstruction. Patient was admitted , seen by general surgery on consultation, and conservative measures including nasogastric tube decompression is being favored at present. In the meantime patient had a chest x-ray which showed evidence of multifocal infiltrates involving mostly bilateral lower lobes, and most likely consistent with aspiration. In the meantime the patient was placed on proper antibiotics including Levaquin and Zosyn. Considering his abnormal chest x-ray, this consult was initiated. Patient is an extremely poor historian, and he is mentally retarded. Patient was reevaluated today on 07/25/2016, seems to be a bit better, x-rays of the abdomen showed nonspecific gas pattern, patient has no abdominal pain, I recently he has less distention, and no significant abdominal findings. His last chest x-ray was suggestive of aspiration pneumonia, and he remains on antibiotics in the form of Levaquin and Zosyn. Labs were reviewed, relatively normal CBC noted. And relatively normal basic metabolic profile was also noted. However the patient is developing a bit of anion gap metabolic acidosis. Reevaluated today on 07/26/2016, patient is status post EGD and he was found to have a patent gastrojejunostomy and patent pylorus with findings of bilious fluid in the gastrojejunostomy. The distal end of the gastrojejunostomy could not be entered easily. Patient continues to have a nasogastric tube in place, and dark bilious material is draining continuously. Pulmonary-mata patient is about the same, denies any pulmonary symptoms, follow-up chest x-ray was ordered to be done in a.m. for follow-up on his aspiration pneumonia picture. Objective - Vital Signs Vital signs: Vital Signs Temp 98.1 F 07/26/16 11:24 Pulse 58 L 07/26/16 08:00 Resp 16 07/26/16 11:24 BP 124/69 07/26/16 11:24 Pulse Ox 96 07/26/16 11:24 Intake & Output 07/25/16 07/26/16 07/26/16 18:59 06:59 18:59 Intake Total 200 0 Output Total 400 500 Balance -200 -500 Weight 77.2 kg 69.6 kg Intake: IV 200 Oral 0 Output: Urine 400 500 Other: # Voids 1 1 - Exam Physical Exam: Revealed a 76-year-old white male in no form of respiratory distress. HEENT:[Neck is supple.] [No neck masses.] [No thyromegaly.] [No JVD.] Nasogastric tube is noted to be functioning and bilious material noted in the nasogastric tube. Chest: [Crackles at the bases were noted bilaterally.] Cardiac Exam: [Normal S1 and S2, no S3 gallop, no murmur.] Abdomen: [Slightly distended, nontender, no megaly, no rebound, no guarding, normal bowel sounds.] Extremities: [No clubbing, no edema, no cyanosis.] Neurological Exam: [Left-sided facial droop is noted, patient is mentally retarded - Labs CBC & Chem 7: 07/26/16 06:25 07/26/16 06:25 Labs: Abnormal Lab Results - Last 24 Hours (Table) 07/25/16 07/26/16 07/26/16 Range/Units 15:09 06:25 06:25 Hgb 12.8 L (13.0-17.5) gm/dL Lymphocytes # 0.9 L (1.0-4.8) k/uL Chloride 110 H (98-107) mmol/L BUN 41 H 40 H (9-20) mg/dL Glucose 106 H (74-99) mg/dL Magnesium 2.4 H (1.6-2.3) mg/dL Total Protein 5.7 L (6.3-8.2) g/dL Albumin 3.0 L 2.7 L (3.5-5.0) g/dL Assessment and Plan Plan: Impression: 1 acute bowel obstruction in a patient who had recent exploratory laparoscopy and loop gastrojejunostomy about 10 days ago. Status post EGD on 07/25/2016 please refer to the operative report. 2 bibasilar pneumonia most likely aspiration in nature, patient seems to be on proper antibiotics for now. Hence we will recommend that we continue the same antibiotics, patient is presently nothing by mouth. 3 history of developmental delay and mental retardation Recommendation: Continue present course of treatment, general surgery is handling the nasogastric tube issue on the bowel obstruction, and I will continue antibiotics as ordered for his presumptive aspiration pneumonia. Not quite ready for discharge planning at this point. Time with Patient: Less than 30
--- NOTE | 2016-07-26 13:59 | P.PN ---
Subjective Principal diagnosis: Bowel obstruction Patient has a nasogastric tube in place. Denies abdominal pain. Bilious output from the nasogastric tube. White blood cell count normal at 6.7. Objective - Vital Signs Vital signs: Vital Signs Temp 98.1 F 07/26/16 11:24 Pulse 58 L 07/26/16 08:00 Resp 16 07/26/16 11:24 BP 124/69 07/26/16 11:24 Pulse Ox 96 07/26/16 11:24 Intake & Output 07/25/16 07/26/16 07/26/16 18:59 06:59 18:59 Intake Total 200 0 Output Total 400 500 Balance -200 -500 Weight 77.2 kg 69.6 kg Intake: IV 200 Oral 0 Output: Urine 400 500 Other: # Voids 1 1 - Exam Abdomen: Soft, nondistended, nontender - Labs CBC & Chem 7: 07/26/16 06:25 07/26/16 06:25 Labs: Abnormal Lab Results - Last 24 Hours (Table) 07/25/16 07/26/16 07/26/16 Range/Units 15:09 06:25 06:25 Hgb 12.8 L (13.0-17.5) gm/dL Lymphocytes # 0.9 L (1.0-4.8) k/uL Chloride 110 H (98-107) mmol/L BUN 41 H 40 H (9-20) mg/dL Glucose 106 H (74-99) mg/dL Magnesium 2.4 H (1.6-2.3) mg/dL Total Protein 5.7 L (6.3-8.2) g/dL Albumin 3.0 L 2.7 L (3.5-5.0) g/dL Assessment and Plan (1) Nausea and vomiting Narrative/Plan: Per Dr. Villasenor there are plans for exporter laparotomy tomorrow. This was discussed with the patient. Continue gastric decompression. Status: Acute
[2016-07-26] MEDS: [UNRECOGNIZED DRUG - REMARK] IV SCH ×6 (17:33)
[2016-07-26 21:48] LABS: Glucose,Whole Blood 113 mg/dL (75-99)
[2016-07-27 02:15] LABS: Glucose,Whole Blood 123 mg/dL (75-99)
[2016-07-27] MEDS: SODIUM CHLORIDE 0.9% 1,000 ML IV SCH ×3 (05:50→12:29)
[2016-07-27 07:00] LABS: Basophils % (A) 0 %; CH 30.6; CHCM 33.3; Eosinophils % (A) 1 %; HCT 39.5 % (39.0-53.0); HDW 2.66; HGB 12.9 gm/dL (13.0-17.5); Luc % (Auto) 2; Lymphocytes # (A) 0.9 k/uL (1.0-4.8); Lymphocytes % (A) 19 %; MCH 30.1 pg (25.0-35.0); MCHC 32.6 g/dL (31.0-37.0); MCV 92.2 fL (80.0-100.0); Monocytes # (A) 0.5 k/uL (0-1.0); Monocytes % (A) 10 %; Neutrophils # (A) 3.3 k/uL (1.3-7.7); Neutrophils % (A) 69 %; RBC 4.28 m/uL (4.30-5.90); RDW 13.4 % (11.5-15.5); WBC 4.8 k/uL (3.8-10.6); WBC (Perox) 5.36
[2016-07-27 07:18] LABS: Anion Gap 9 mmol/L; Blood Urea Nitrogen 32 mg/dL (9-20); Calcium 8.3 mg/dL (8.4-10.2); Carbon Dioxide 25 mmol/L (22-30); Chloride 112 mmol/L (98-107); Glucose 127 mg/dL (74-99); Magnesium 2.2 mg/dL (1.6-2.3); Non-African American GFR(MDRD) >60 (>60 ml/min/1.73 sqM); Phosphorous 2.6 mg/dL (2.5-4.5); Potassium 3.9 mmol/L (3.5-5.1); Sodium 146 mmol/L (137-145)
[2016-07-27] MEDS: LACTATED RINGERS 1,000 ML IV SCH (07:28)
[2016-07-27] MEDS: PANTOPRAZOLE 40 MG/10 ML VIAL IVP SCH (07:33)
[2016-07-27] MEDS: LEVOFLOXACIN 750MG-D5W PMX 750 MG in DEXTROSE/WATER 1 150ML.BAG IVPB SCH (07:33)
[2016-07-27] MEDS: HEPARIN SODIUM,PORCINE 5,000 UNIT/ML 1 ML VIAL SQ SCH ×2 (07:33→21:05)
[2016-07-27] MEDS: metroNIDAZOLE-NS PMX 500 MG in SALINE 1 100ML.BAG IVPB SCH ×2 (07:33→16:57)
[2016-07-27] MEDS: HYDROmorphone 1 MG/ML 1 ML SYRINGE IV PRN ×2 (07:36→15:48)
[2016-07-27 08:37] LABS: Glucose,Whole Blood 118 mg/dL (75-99)
[2016-07-27] MEDS ORDERED: IV FLUID CONTINUATION 1,000 ML IV ONE (08:37)
[2016-07-27] MEDS ORDERED: MIDAZOLAM 2 MG/2 ML VIAL ONE (09:33)
[2016-07-27] MEDS ORDERED: ePHEDrine 50 MG/ML 1 ML AMP ONE (09:33)
[2016-07-27] MEDS ORDERED: SUCCINYLCHOLINE CHLORIDE 100 MG/5 ML SYR IV ONE (09:33)
[2016-07-27] MEDS ORDERED: NEOSTIGMINE 1 MG/ML 10 ML VIAL ONE (09:33)
[2016-07-27] MEDS ORDERED: ROCURONIUM BROMIDE 10 MG/ML 10 ML VIAL IV ONE (09:33)
[2016-07-27] MEDS ORDERED: fentaNYL (PF) 50 MCG/ML 2 ML AMP ONE (09:33)
[2016-07-27] MEDS ORDERED: PROPOFOL 10 MG/ML 20 ML VIAL IV ONE (09:33)
[2016-07-27] MEDS ORDERED: LIDOCAINE 1% INJ 10MG/ML (20 ML MDV) ONE (09:33)
[2016-07-27] MEDS ORDERED: GLYCOPYRROLATE 0.2 MG/ML 2 ML VIAL ONE (09:33)
--- NOTE | 2016-07-27 09:35 | P.PN ---
Progress Note - Text The patient still continues have high output bilious drainage from his NG tube. He is producing approximately 500 mL per shift. Due to the persistent high output through his NG tube. And his CAT scans which shows evidence of a small bowel obstruction most likely due to adhesion. The patient will be taken to surgery today. He'll undergo exploratory laparotomy and lysis of adhesions. There was difficulty in obtaining informed consent for the patient's sister/we will guarding. Apparently the wrong phone number was in the chart. Phone consent was obtained in the preoperative hold area.
--- NOTE | 2016-07-27 09:38 | XR ---
EXAMINATION TYPE: XR chest 1V portable DATE OF EXAM: 07/27/2016 6:56 AM COMPARISON: 07/24/2016 HISTORY: Pneumonia TECHNIQUE: Single frontal view of the chest is obtained. FINDINGS: Subsegmental changes involving the right lung base noted. NG tube noted. The heart is unch anged. No pneumothorax. Tiny right effusion suspected. IMPRESSION: 1. Stable tiny right pleural effusion and basilar subsegmental atelectasis or infiltrate.
[2016-07-27] MEDS ORDERED: POTASSIUM CHLORIDE 10 MEQ in WATER FOR INJECTION 1 100ML.BAG IVPB ONE (11:00)
[2016-07-27 11:05] VITALS: BMI 23.1
[2016-07-27] MEDS ORDERED: ONDANSETRON 4 MG/2 ML VIAL IVP PRN (11:40)
[2016-07-27] MEDS ORDERED: LACTATED RINGERS 1,000 ML IV ONE (11:40)
[2016-07-27] MEDS ORDERED: NALOXONE 0.4 MG/ML 1 ML VIAL IV PRN (11:40)
--- NOTE | 2016-07-27 11:40 | P.OP ---
Date of Procedure: 07/27/16 Preoperative Diagnosis: Small bowel obstruction Postoperative Diagnosis: Small bowel/gastric outlet obstruction secondary to scarring of gastrojejunostomy Procedure(s) Performed: Exposure laparotomy Lysis of adhesion Enteral enterostomy Implants: Anesthesia: LESLI Surgeon: Delano Villasenor Estimated Blood Loss (ml): 100 Pathology: none sent Condition: stable Disposition: PACU Indications for Procedure: Operative Findings: Description of Procedure: The patient's placed on the operative table in the supine position. He received general anesthesia. His abdomen was prepped and draped in usual sterile fashion. The abdomen was entered entered through the midline and scar. Adhesions were lysed off the anterior abdominal wall. The proximal jejunum appeared to be dilated. At this point the gastrojejunostomy was dissected free from the transverse colon mesentery. There appeared to be significant scarring around the anastomosis causing a efferent limb obstruction. Once the scar tissue was freed. The the efferent limb appeared to be patent. The stomach the stomach was filled with methylene blue normal saline. There is no evidence of leak around the gastrojejunostomy. And both limbs of the gastrojejunostomy filled. Due to the risk of recurrent scar tissue A enteral enterostomy was created between the proximal jejunum and the distal jejunum just after the gastrojejunostomy. There is no evidence of any bowel obstruction. The abdomen was irrigated. There was no bleeding seen. The fascia was closed loop #1 PDS suture.
[2016-07-27] MEDS: HYDROmorphone 1 MG/ML 1 ML SYRINGE IVP ONE ×2 (12:07→12:12)
--- NOTE | 2016-07-27 13:22 | P.PN ---
Subjective This is a 76-year-old gentleman with a history of multiple medical problems including being mentally challenged, developmentally delayed. He also has a history of gastric outlet obstruction and had undergone a laparoscopic loop gastrojejunostomy. The patient was readmitted on 07/23/2016 with episodes of epigastric discomfort, nausea and vomiting for several days prior to his arrival. A computed tomography scan of the abdomen was consistent with small bowel obstruction. Today he had undergone exploratory laparotomy by Dr. Villasenor lysis of adhesions and enteral enterostomy. He was no evidence of bowel obstruction. He is seen today in the X selective care unit this is postoperative day #0. He is maintaining good O2 saturations in the mid 90s on room air. He is hemodynamically stable. Afebrile. Objective - Vital Signs Vital signs: Vital Signs Temp 97 F L 07/27/16 11:46 Pulse 86 07/27/16 12:54 Resp 14 07/27/16 12:54 BP 133/72 07/27/16 12:54 Pulse Ox 98 07/27/16 12:30 Intake & Output 07/26/16 07/27/16 07/27/16 18:59 06:59 18:59 Intake Total 1100 Output Total 250 400 500 Balance -250 -400 600 Weight 68.9 kg 68.9 kg Intake: IV 1100 Output: Urine 250 400 350 Estimated Blood Loss 150 Other: Voiding Method Urinal - Exam GENERAL EXAM: Mentally challenged. Alert, comfortable in no apparent distress. HEAD: Normocephalic. Left-sided facial droop. EYES: Normal reaction of pupils, equal size. NOSE: Clear with pink turbinates. THROAT: No erythema or exudates. NECK: No masses, no JVD. CHEST: No chest wall deformity. LUNGS: Equal air entry with faint crackles in bilateral bases. CVS: S1 and S2 normal with no audible murmurs, regular rhythm. ABDOMEN: Abdominal dressing dry and intact. - Labs CBC & Chem 7: 07/27/16 06:20 07/27/16 06:20 Labs: Abnormal Lab Results - Last 24 Hours (Table) 07/26/16 07/27/16 07/27/16 Range/Units 21:12 02:13 06:20 RBC (4.30-5.90) m/uL Hgb (13.0-17.5) gm/dL Lymphocytes # (1.0-4.8) k/uL Sodium 146 H (137-145) mmol/L Chloride 112 H (98-107) mmol/L BUN 32 H (9-20) mg/dL Glucose 127 H (74-99) mg/dL POC Glucose (mg/dL) 113 H 123 H (75-99) mg/dL Calcium 8.3 L (8.4-10.2) mg/dL 07/27/16 07/27/16 Range/Units 06:20 08:24 RBC 4.28 L (4.30-5.90) m/uL Hgb 12.9 L (13.0-17.5) gm/dL Lymphocytes # 0.9 L (1.0-4.8) k/uL Sodium (137-145) mmol/L Chloride (98-107) mmol/L BUN (9-20) mg/dL Glucose (74-99) mg/dL POC Glucose (mg/dL) 118 H (75-99) mg/dL Calcium (8.4-10.2) mg/dL Assessment and Plan Plan: Impression: #1 small bowel/gastric outlet obstruction secondary to scarring of gastrojejunostomy, status post exploratory laparotomy, lysis of adhesions and enteral enterostomy. Postoperative day #0. #2 Recent acute bowel obstruction and exploratory laparotomy with loop gastrojejunostomy approximately 10-14 days ago. Status post EGD on 07/25/2016. #3 Bibasilar pneumonia most likely aspiration. #4 History of developmental delay with mental challenge. Plan: The patient was seen and evaluated by Dr. Vazquez. We'll continue with the patient's current antibiotics. Unclear if he'll be able to perform incentive spirometry will have the staff work with him. He is receiving TPN and lipids for now. He is maintained on metronidazole and Levaquin. We'll change his bronchodilators from when necessary to scheduled 4 times a day treatments. He is on heparin for DVT prophylaxis. He is also on Reglan and Protonix. We'll repeat a chest x-ray in the a.m. We'll continue to follow make further recommendations based on his clinical status.
--- NOTE | 2016-07-27 13:24 | P.PN ---
Subjective Patient lying in bed comfortably. No complaints. EGD completed showing patent gastrojejunostomy and patent pylorus with Bilious fluid in stomach. Patient postop day #0 status post exploratory laparotomy with lysis of adhesions and enteral enterostomy. Patient's lying in bed comfortably. Pain tolerable. Denies any chest pain, shortness of breath. NG tube in place. Objective - Vital Signs Vital signs: Vital Signs Temp 97 F L 07/27/16 11:46 Pulse 86 07/27/16 12:54 Resp 14 07/27/16 12:54 BP 133/72 07/27/16 12:54 Pulse Ox 98 07/27/16 12:30 Intake & Output 07/26/16 07/27/16 07/27/16 18:59 06:59 18:59 Intake Total 1100 Output Total 250 400 500 Balance -250 -400 600 Weight 68.9 kg 68.9 kg Intake: IV 1100 Output: Urine 250 400 350 Estimated Blood Loss 150 Other: Voiding Method Urinal - Exam Head normocephalic Neck supple Lungs clear to auscultation bilaterally no wheezing or crackles Heart regular rate and rhythm S1-S2, no rub or gallop Abdomen is soft nontender nondistended has drainage tube in place dressing clean dry and intact Extremities no edema Neuro weeping comfortably after receiving pain medication. Patient is arousable. - Labs CBC & Chem 7: 07/27/16 06:20 07/27/16 06:20 Labs: Abnormal Lab Results - Last 24 Hours (Table) 07/26/16 07/27/16 07/27/16 Range/Units 21:12 02:13 06:20 RBC (4.30-5.90) m/uL Hgb (13.0-17.5) gm/dL Lymphocytes # (1.0-4.8) k/uL Sodium 146 H (137-145) mmol/L Chloride 112 H (98-107) mmol/L BUN 32 H (9-20) mg/dL Glucose 127 H (74-99) mg/dL POC Glucose (mg/dL) 113 H 123 H (75-99) mg/dL Calcium 8.3 L (8.4-10.2) mg/dL 07/27/16 07/27/16 Range/Units 06:20 08:24 RBC 4.28 L (4.30-5.90) m/uL Hgb 12.9 L (13.0-17.5) gm/dL Lymphocytes # 0.9 L (1.0-4.8) k/uL Sodium (137-145) mmol/L Chloride (98-107) mmol/L BUN (9-20) mg/dL Glucose (74-99) mg/dL POC Glucose (mg/dL) 118 H (75-99) mg/dL Calcium (8.4-10.2) mg/dL Assessment and Plan Plan: 1. Small bowel obstruction with gastric outlet obstruction secondary to scarring of gastrojejunostomy: with recent exploratory laparoscopy and loop gastrojejunostomy approximately 10 days ago: NG tube in place. Patient was seen and evaluated by surgery. Status post EGD showing patent gastrojejunostomy , patent pylorus and bilious fluid in stomach. Patient is postop day #0 status post exposure laparotomy with lysis of adhesions and enteral enterostomy. 2. Right facial droop with suspected TIA: Seen and evaluated by neurology. 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 Computed tomography scan of the brain showed no acute intracranial process. Echocardiogram of the heart and carotid Doppler normal for his age. We will need to start aspirin awaiting clearance from surgery. Neurology following 3. Possible aspiration pneumonia: started on IV Levaquin and Zosyn. Zosyn switched to Flagyl yesterday given worsening leukopenia. Will finish 8 days of antibiotic. Pulmonology consulted, appreciate recommendation 4. Developmental delay/mental retardation 5. DVT prophylaxis with subcu heparin 6. Leukopenia improved after switching Zosyn and Flagyl 8. Severe protein calorie malnutrition patient currently receiving PPN Okay to transfer patient to regular medical floor
[2016-07-27] MEDS: METOCLOPRAMIDE 5 MG/ML 2 ML VIAL IVP SCH ×2 (14:18→18:30)
[2016-07-27] MEDS ORDERED: [UNRECOGNIZED DRUG - REMARK] IV SCH ×6 (16:00)
[2016-07-27 18:09] LABS: Glucose,Whole Blood 160 mg/dL (75-99)
[2016-07-27] MEDS: FAT EMULSION 20% 250 ML in EMPTY BAG 1 BAG IV SCH (18:24)
[2016-07-27] MEDS: [UNRECOGNIZED DRUG - REMARK] IV SCH ×6 (18:24)
[2016-07-27] MEDS: INSULIN LISPRO (humaLOG) 300 UNIT/3 ML VIAL SQ SCH (19:46)
[2016-07-27 21:13] LABS: Hemoglobin A1C 5.1 % (4.2-6.1)
[2016-07-28] MEDS: metroNIDAZOLE-NS PMX 500 MG in SALINE 1 100ML.BAG IVPB SCH ×4 (00:08→23:33)
[2016-07-28] MEDS: METOCLOPRAMIDE 5 MG/ML 2 ML VIAL IVP SCH ×6 (00:08→23:32)
[2016-07-28 00:12] LABS: Glucose,Whole Blood 159 mg/dL (75-99)
[2016-07-28] MEDS: INSULIN LISPRO (humaLOG) 300 UNIT/3 ML VIAL SQ SCH ×4 (00:17→17:36)
[2016-07-28] MEDS: SODIUM CHLORIDE 0.9% 1,000 ML IV SCH ×3 (03:52→23:25)
[2016-07-28 05:25] LABS: Glucose,Whole Blood 168 mg/dL (75-99)
[2016-07-28] MEDS: HYDROmorphone 1 MG/ML 1 ML SYRINGE IV PRN ×3 (05:30→15:39)
[2016-07-28] MEDS: LACTATED RINGERS 1,000 ML IV SCH (05:33)
[2016-07-28 07:20] LABS: Basophils % (A) 0 %; CH 30.1; CHCM 33.2; Eosinophils % (A) 1 %; HCT 41.8 % (39.0-53.0); HDW 2.69; HGB 13.7 gm/dL (13.0-17.5); Luc # (Auto) 0.14; Luc % (Auto) 2; Lymphocytes # (A) 0.8 k/uL (1.0-4.8); Lymphocytes % (A) 12 %; MCH 29.9 pg (25.0-35.0); MCHC 32.7 g/dL (31.0-37.0); MCV 91.2 fL (80.0-100.0); Mean Platelet Volume 6.5; Monocytes # (A) 0.4 k/uL (0-1.0); Monocytes % (A) 5 %; Neutrophils # (A) 5.7 k/uL (1.3-7.7); Neutrophils % (A) 81 %; RBC 4.58 m/uL (4.30-5.90); RDW 13.3 % (11.5-15.5); WBC 7.1 k/uL (3.8-10.6); WBC (Perox) 7.92
[2016-07-28 07:44] LABS: Anion Gap 8 mmol/L; Blood Urea Nitrogen 18 mg/dL (9-20); Calcium 7.9 mg/dL (8.4-10.2); Carbon Dioxide 26 mmol/L (22-30); Chloride 110 mmol/L (98-107); Glucose 160 mg/dL (74-99); Magnesium 1.9 mg/dL (1.6-2.3); Non-African American GFR(MDRD) >60 (>60 ml/min/1.73 sqM); Phosphorous 2.6 mg/dL (2.5-4.5); Potassium 3.7 mmol/L (3.5-5.1); Sodium 144 mmol/L (137-145)
[2016-07-28] MEDS: PANTOPRAZOLE 40 MG/10 ML VIAL IV SCH (09:10)
[2016-07-28] MEDS: HEPARIN SODIUM,PORCINE 5,000 UNIT/ML 1 ML VIAL SQ SCH ×2 (09:10→22:00)
[2016-07-28] MEDS: LEVOFLOXACIN 750MG-D5W PMX 750 MG in DEXTROSE/WATER 1 150ML.BAG IVPB SCH (09:10)
--- NOTE | 2016-07-28 10:02 | P.PN ---
Progress Note - Text Patient remained stable. He is postop day 1 Laparotomy lysis of adhesions and revision of his aspirin colostomy with enteroenterostomy by Dr. Villasenor yesterday. He is awake alert. Vitals are stable. Temperature is normal. Abdomen shows usual postoperative tenderness. Dressings are dry. LEOBARDO drain is serosanguineous. No evidence of any complications. Laboratory studies are reviewed and unremarkable. Impression: Stable postop. Recommendation continued postoperative care and close monitoring.
[2016-07-28] MEDS: POTASSIUM CHLORIDE 10 MEQ in WATER FOR INJECTION 1 100ML.BAG IVPB SCH ×2 (11:06→12:42)
[2016-07-28 11:48] LABS: Glucose,Whole Blood 121 mg/dL (75-99)
--- NOTE | 2016-07-28 14:38 | P.PN ---
Subjective Principal diagnosis: Acute small bowel obstruction and bilateral pneumonia most likely aspiration. This is a 76-year-old white male with history of multiple medical problems including mental retardation, developmental delay, patient was recently discharged from the hospital after he underwent laparoscopic loop gastrojejunostomy because of gastric outlet obstruction. Patient was readmitted yesterday with mostly symptoms of epigastric discomfort, nausea and vomiting for the last several days. Workup in the ER included a CT of the abdomen which was consistent with small bowel obstruction. Patient was admitted , seen by general surgery on consultation, and conservative measures including nasogastric tube decompression is being favored at present. In the meantime patient had a chest x-ray which showed evidence of multifocal infiltrates involving mostly bilateral lower lobes, and most likely consistent with aspiration. In the meantime the patient was placed on proper antibiotics including Levaquin and Zosyn. Considering his abnormal chest x-ray, this consult was initiated. Patient is an extremely poor historian, and he is mentally retarded. Patient was reevaluated today on 07/25/2016, seems to be a bit better, x-rays of the abdomen showed nonspecific gas pattern, patient has no abdominal pain, I recently he has less distention, and no significant abdominal findings. His last chest x-ray was suggestive of aspiration pneumonia, and he remains on antibiotics in the form of Levaquin and Zosyn. Labs were reviewed, relatively normal CBC noted. And relatively normal basic metabolic profile was also noted. However the patient is developing a bit of anion gap metabolic acidosis. Reevaluated today on 07/26/2016, patient is status post EGD and he was found to have a patent gastrojejunostomy and patent pylorus with findings of bilious fluid in the gastrojejunostomy. The distal end of the gastrojejunostomy could not be entered easily. Patient continues to have a nasogastric tube in place, and dark bilious material is draining continuously. Pulmonary-mata patient is about the same, denies any pulmonary symptoms, follow-up chest x-ray was ordered to be done in a.m. for follow-up on his aspiration pneumonia picture. Patient was reevaluated today on 07/28/2016, seems to be doing quite well, he is postoperative day #1, patient underwent laparotomy, lysis of adhesions and revision of his colostomy with enterostomy. This was done by Dr. Villasenor. Pulmonary-mata no cough no wheezing no shortness of breath, I plan to repeat a chest x-ray for follow-up on his by basilar pneumonia which was felt to be aspiration pneumonia unless proven otherwise. Labs today were reviewed, normal CBC is noted. And normal basic metabolic profile is noted. Objective - Vital Signs Vital signs: Vital Signs Temp 97.5 F L 07/28/16 13:49 Pulse 89 07/28/16 13:49 Resp 16 07/28/16 13:49 BP 130/77 07/28/16 13:49 Pulse Ox 96 07/28/16 13:49 Intake & Output 07/27/16 07/28/16 07/28/16 18:59 06:59 18:59 Intake Total 1100 Output Total 570 1110 Balance 530 -1110 Weight 68.9 kg Intake: IV 1100 Output: Drainage 70 60 Abdomen 70 60 Urine 350 1050 Uretheral (Bills) 1050 Estimated Blood Loss 150 Other: Voiding Method Indwelling Catheter Indwelling Catheter Indwelling Catheter - Exam Physical Exam: Revealed a 76-year-old white male in no form of respiratory distress. HEENT:[Neck is supple.] [No neck masses.] [No thyromegaly.] [No JVD. Chest: [Crackles at the bases were noted bilaterally.] Cardiac Exam: [Normal S1 and S2, no S3 gallop, no murmur.] Abdomen: [Slightly distended, nontender, no megaly, no rebound, no guarding, normal bowel sounds.] Extremities: [No clubbing, no edema, no cyanosis.] Neurological Exam: [Left-sided facial droop is noted, patient is mentally retarded - Labs CBC & Chem 7: 07/28/16 06:20 07/28/16 06:20 Labs: Abnormal Lab Results - Last 24 Hours (Table) 07/27/16 07/28/16 07/28/16 Range/Units 18:08 00:09 05:22 Lymphocytes # (1.0-4.8) k/uL Chloride (98-107) mmol/L Creatinine (0.66-1.25) mg/dL Glucose (74-99) mg/dL POC Glucose (mg/dL) 160 H 159 H 168 H (75-99) mg/dL Calcium (8.4-10.2) mg/dL 07/28/16 07/28/16 07/28/16 Range/Units 06:20 06:20 11:37 Lymphocytes # 0.8 L (1.0-4.8) k/uL Chloride 110 H (98-107) mmol/L Creatinine 0.60 L (0.66-1.25) mg/dL Glucose 160 H (74-99) mg/dL POC Glucose (mg/dL) 121 H (75-99) mg/dL Calcium 7.9 L (8.4-10.2) mg/dL Assessment and Plan Plan: 1 small bowel/gastric outlet obstruction secondary to scarring of gastrojejunostomy, status post exploratory laparotomy, lysis of adhesions and enteral enterostomy. Postoperative day # 1 #2 Recent acute bowel obstruction and exploratory laparotomy with loop gastrojejunostomy approximately 10-14 days ago. Status post EGD on 07/25/2016. #3 Bibasilar pneumonia most likely aspiration. #4 History of developmental delay with mental challenge. Recommendation: Continue current antibiotics, repeat chest x-ray in a.m., will continue to follow. Time with Patient: Less than 30
--- NOTE | 2016-07-28 14:54 | P.PN ---
Subjective Principal diagnosis: Acute bowel obstruction Patient lying in bed comfortably. No complaints. Patient postop day #1 status post exploratory laparotomy with lysis of adhesions and enteral enterostomy. Pain tolerable. Denies any chest pain, shortness of breath. NG tube in place. Objective - Vital Signs Vital signs: Vital Signs Temp 97.5 F L 07/28/16 13:49 Pulse 89 07/28/16 13:49 Resp 16 07/28/16 13:49 BP 130/77 07/28/16 13:49 Pulse Ox 96 07/28/16 13:49 Intake & Output 07/27/16 07/28/16 07/28/16 18:59 06:59 18:59 Intake Total 1100 Output Total 570 1110 Balance 530 -1110 Weight 68.9 kg Intake: IV 1100 Output: Drainage 70 60 Abdomen 70 60 Urine 350 1050 Uretheral (Bills) 1050 Estimated Blood Loss 150 Other: Voiding Method Indwelling Catheter Indwelling Catheter Indwelling Catheter - Exam HEENT head normocephalic, atraumatic NECK is supple no JVD, no goiter no adenopathy, no carotid bruit CHEST with few scattered rhonchi, no wheezing CARD Regular S1 S2 no gallop, no murmur Abdomen soft non tender no organomegaly EXT no edema - Labs CBC & Chem 7: 07/28/16 06:20 07/28/16 06:20 Labs: Abnormal Lab Results - Last 24 Hours (Table) 07/27/16 07/28/16 07/28/16 Range/Units 18:08 00:09 05:22 Lymphocytes # (1.0-4.8) k/uL Chloride (98-107) mmol/L Creatinine (0.66-1.25) mg/dL Glucose (74-99) mg/dL POC Glucose (mg/dL) 160 H 159 H 168 H (75-99) mg/dL Calcium (8.4-10.2) mg/dL 07/28/16 07/28/16 07/28/16 Range/Units 06:20 06:20 11:37 Lymphocytes # 0.8 L (1.0-4.8) k/uL Chloride 110 H (98-107) mmol/L Creatinine 0.60 L (0.66-1.25) mg/dL Glucose 160 H (74-99) mg/dL POC Glucose (mg/dL) 121 H (75-99) mg/dL Calcium 7.9 L (8.4-10.2) mg/dL Assessment and Plan Plan: 1. Small bowel obstruction with gastric outlet obstruction secondary to scarring of gastrojejunostomy: with recent exploratory laparoscopy and loop gastrojejunostomy approximately 10 days ago: NG tube in place. Patient was seen and evaluated by surgery. Status post EGD showing patent gastrojejunostomy , patent pylorus and bilious fluid in stomach. Patient is postop day #1 status post exposure laparotomy with lysis of adhesions and enteral enterostomy. 2. Right facial droop with suspected TIA: Seen and evaluated by neurology. 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 Computed tomography scan of the brain showed no acute intracranial process. Echocardiogram of the heart and carotid Doppler normal for his age. We will need to start aspirin awaiting clearance from surgery. Neurology following 3. Possible aspiration pneumonia: started on IV Levaquin and Zosyn. Zosyn switched to Flagyl yesterday given worsening leukopenia. Will finish 8 days of antibiotic. Pulmonology consulted, appreciate recommendation 4. Developmental delay/mental retardation 5. DVT prophylaxis with subcu heparin 6. Leukopenia improved after switching Zosyn and Flagyl 8. Severe protein calorie malnutrition patient currently receiving PPN
[2016-07-28 17:17] LABS: Glucose,Whole Blood 133 mg/dL (75-99)
[2016-07-28] MEDS: [UNRECOGNIZED DRUG - REMARK] IV SCH ×6 (18:31)
[2016-07-28 23:44] LABS: Glucose,Whole Blood 129 mg/dL (75-99)
[2016-07-29] MEDS: INSULIN LISPRO (humaLOG) 300 UNIT/3 ML VIAL SQ SCH ×5 (00:07→23:20)
[2016-07-29] MEDS: METOCLOPRAMIDE 5 MG/ML 2 ML VIAL IVP SCH ×4 (05:34→23:15)
[2016-07-29 05:55] LABS: Glucose,Whole Blood 122 mg/dL (75-99)
[2016-07-29 07:40] LABS: Anion Gap 6 mmol/L; Blood Urea Nitrogen 19 mg/dL (9-20); Calcium 7.7 mg/dL (8.4-10.2); Carbon Dioxide 26 mmol/L (22-30); Chloride 108 mmol/L (98-107); Glucose 121 mg/dL (74-99); Magnesium 1.8 mg/dL (1.6-2.3); Non-African American GFR(MDRD) >60 (>60 ml/min/1.73 sqM); Phosphorous 2.3 mg/dL (2.5-4.5); Potassium 3.6 mmol/L (3.5-5.1); Sodium 140 mmol/L (137-145)
--- NOTE | 2016-07-29 07:57 | XR ---
EXAMINATION TYPE: XR chest 1V portable DATE OF EXAM: 07/29/2016 6:45 AM Comparison: 07/27/2016 Clinical History: 76-year-old male with pneumonia Findings: NG tube remains in place. Left PICC tip is at the lower SVC. Heart remains borderline to mildly enlar ged with elongation/ectasia of the thoracic aorta. There is worsening volume loss at the right base w ith elevation of the right hemidiaphragm and adjacent opacity. Impression: 1. Similar borderline to mild cardiomegaly and elongation/ectasia of the thoracic aorta. 2. New volume loss at the right base with elevation of the right hemidiaphragm and right basilar atel ectasis/infiltrate.
[2016-07-29 08:18] LABS: Basophils % (A) 0 %; CH 30.2; CHCM 33.1; Eosinophils # (A) 0.2 k/uL (0-0.7); Eosinophils % (A) 2 %; HCT 39.1 % (39.0-53.0); HDW 2.64; HGB 12.9 gm/dL (13.0-17.5); Luc # (Auto) 0.13; Luc % (Auto) 2; Lymphocytes # (A) 0.9 k/uL (1.0-4.8); Lymphocytes % (A) 13 %; MCH 30.3 pg (25.0-35.0); MCV 91.7 fL (80.0-100.0); Mean Platelet Volume 6.7; Monocytes # (A) 0.4 k/uL (0-1.0); Monocytes % (A) 6 %; Neutrophils # (A) 5.7 k/uL (1.3-7.7); Neutrophils % (A) 78 %; RBC 4.26 m/uL (4.30-5.90); RDW 13.5 % (11.5-15.5); WBC 7.3 k/uL (3.8-10.6); WBC (Perox) 7.86
[2016-07-29] MEDS: SODIUM CHLORIDE 0.9% 1,000 ML IV SCH ×2 (09:02→17:48)
[2016-07-29] MEDS: LACTATED RINGERS 1,000 ML IV SCH (09:02)
[2016-07-29] MEDS: HEPARIN SODIUM,PORCINE 5,000 UNIT/ML 1 ML VIAL SQ SCH ×2 (09:03→20:06)
[2016-07-29] MEDS: PANTOPRAZOLE 40 MG/10 ML VIAL IV SCH (09:04)
[2016-07-29] MEDS: [UNRECOGNIZED DRUG - REMARK] IV SCH ×6 (09:07)
[2016-07-29] MEDS: LEVOFLOXACIN 750MG-D5W PMX 750 MG in DEXTROSE/WATER 1 150ML.BAG IVPB SCH (09:07)
[2016-07-29] MEDS: metroNIDAZOLE-NS PMX 500 MG in SALINE 1 100ML.BAG IVPB SCH ×3 (09:36→23:15)
--- NOTE | 2016-07-29 12:18 | P.PN ---
Progress Note - Text The patient is awake alert stable. Thinks he may have passed some flatus. Has NG tube in place. On examination patient is afebrile. Vitals are stable. Abdomen shows some diffuse mild tenderness no guarding or rebound. Incision looks fine. LEOBARDO drain is minimal serosanguineous. Laboratory studies are pending. Impression stable postop. Recommendation continued monitoring NG tube ambulation etc.
[2016-07-29 12:24] LABS: Glucose,Whole Blood 102 mg/dL (75-99)
[2016-07-29] MEDS: HYDROmorphone 1 MG/ML 1 ML SYRINGE IV PRN (13:31)
--- NOTE | 2016-07-29 14:46 | P.PN ---
Subjective Principal diagnosis: Acute small bowel obstruction and bilateral pneumonia most likely aspiration. This is a 76-year-old white male with history of multiple medical problems including mental retardation, developmental delay, patient was recently discharged from the hospital after he underwent laparoscopic loop gastrojejunostomy because of gastric outlet obstruction. Patient was readmitted yesterday with mostly symptoms of epigastric discomfort, nausea and vomiting for the last several days. Workup in the ER included a CT of the abdomen which was consistent with small bowel obstruction. Patient was admitted , seen by general surgery on consultation, and conservative measures including nasogastric tube decompression is being favored at present. In the meantime patient had a chest x-ray which showed evidence of multifocal infiltrates involving mostly bilateral lower lobes, and most likely consistent with aspiration. In the meantime the patient was placed on proper antibiotics including Levaquin and Zosyn. Considering his abnormal chest x-ray, this consult was initiated. Patient is an extremely poor historian, and he is mentally retarded. Patient was reevaluated today on 07/25/2016, seems to be a bit better, x-rays of the abdomen showed nonspecific gas pattern, patient has no abdominal pain, I recently he has less distention, and no significant abdominal findings. His last chest x-ray was suggestive of aspiration pneumonia, and he remains on antibiotics in the form of Levaquin and Zosyn. Labs were reviewed, relatively normal CBC noted. And relatively normal basic metabolic profile was also noted. However the patient is developing a bit of anion gap metabolic acidosis. Reevaluated today on 07/26/2016, patient is status post EGD and he was found to have a patent gastrojejunostomy and patent pylorus with findings of bilious fluid in the gastrojejunostomy. The distal end of the gastrojejunostomy could not be entered easily. Patient continues to have a nasogastric tube in place, and dark bilious material is draining continuously. Pulmonary-mata patient is about the same, denies any pulmonary symptoms, follow-up chest x-ray was ordered to be done in a.m. for follow-up on his aspiration pneumonia picture. Patient was reevaluated today on 07/28/2016, seems to be doing quite well, he is postoperative day #1, patient underwent laparotomy, lysis of adhesions and revision of his colostomy with enterostomy. This was done by Dr. Villasenor. Pulmonary-mata no cough no wheezing no shortness of breath, I plan to repeat a chest x-ray for follow-up on his by basilar pneumonia which was felt to be aspiration pneumonia unless proven otherwise. Labs today were reviewed, normal CBC is noted. And normal basic metabolic profile is noted. Patient was reevaluated on 07/29/2016, his postoperative day #2, underwent laparotomy, lysis of adhesions, and revision of his colostomy with enterostomy. Pulmonary-mata, his infiltrates have significantly improved, however he has a minimal limited atelectasis in the right lower lobe with a right hemidiaphragm elevation. Patient denies any pulmonary symptoms. I believe that will improve with incentive spirometry, however the patient does very poorly with incentive spirometry instructions. Labs were reviewed. CBC is normal. Basic metabolic profile is normal. Nasogastric tube remains in place. Objective - Vital Signs Vital signs: Vital Signs Temp 98.4 F 07/29/16 07:00 Pulse 61 07/29/16 08:00 Resp 14 07/29/16 08:00 BP 147/69 07/29/16 07:00 Pulse Ox 96 07/29/16 07:00 Intake & Output 07/28/16 07/29/16 07/29/16 18:59 06:59 18:59 Intake Total 3080 Output Total 550 650 100 Balance 2530 -650 -100 Weight 68.9 kg Intake: IV 1200 Sodium Chloride 0.9% 1, 1200 000 ml @ 100 mls/hr IV . Q10H [facility] Rx#:[id number] Intake, IV Titration 1040 Amount Levofloxacin 750Mg-D5w 100 Pmx 750 mg In Dextrose/ Water 1 150ml.bag @ 100 mls/hr IVPB Q24HR [facility] Rx# :[id number] Potassium Phosphate 20 840 mmol Sodium Acetate 25 meq Calcium Gluconate 1, 000 mg In Amino Acid 5%- D25w 1,000 ml @ 70 mls/hr IV .BY DURATION [facility] Rx#: [id number] Sodium Chloride 0.9% 1, 100 000 ml @ 100 mls/hr IV . Q10H [facility] Rx#:[id number] TPN/PPN 840 Sodium Chloride 0.9% 1, 840 000 ml @ 100 mls/hr IV . Q10H [facility] Rx#:[id number] Output: Gastric Drainage 150 100 Drainage 50 100 100 Abdomen 50 100 100 Urine 350 450 Other: Voiding Method Indwelling Catheter Indwelling Catheter Indwelling Catheter - Exam Physical Exam: Revealed a 76-year-old white male in no form of respiratory distress. Nasogastric tube remains in place, HEENT:[Neck is supple.] [No neck masses.] [No thyromegaly.] [No JVD. Chest: [Crackles at the bases were noted bilaterally.] Cardiac Exam: [Normal S1 and S2, no S3 gallop, no murmur.] Abdomen: [Slightly distended, nontender, no megaly, no rebound, no guarding, normal bowel sounds.] Extremities: [No clubbing, no edema, no cyanosis.] Neurological Exam: [Left-sided facial droop is noted, patient is mentally retarded - Labs CBC & Chem 7: 07/29/16 06:29 07/29/16 06:29 Labs: Abnormal Lab Results - Last 24 Hours (Table) 07/28/16 07/28/16 07/29/16 Range/Units 17:15 23:42 05:33 RBC (4.30-5.90) m/uL Hgb (13.0-17.5) gm/dL Lymphocytes # (1.0-4.8) k/uL Chloride (98-107) mmol/L Creatinine (0.66-1.25) mg/dL Glucose (74-99) mg/dL POC Glucose (mg/dL) 133 H 129 H 122 H (75-99) mg/dL Calcium (8.4-10.2) mg/dL Phosphorus (2.5-4.5) mg/dL 07/29/16 07/29/16 07/29/16 Range/Units 06:29 06:29 12:20 RBC 4.26 L (4.30-5.90) m/uL Hgb 12.9 L (13.0-17.5) gm/dL Lymphocytes # 0.9 L (1.0-4.8) k/uL Chloride 108 H (98-107) mmol/L Creatinine 0.60 L (0.66-1.25) mg/dL Glucose 121 H (74-99) mg/dL POC Glucose (mg/dL) 102 H (75-99) mg/dL Calcium 7.7 L (8.4-10.2) mg/dL Phosphorus 2.3 L (2.5-4.5) mg/dL Assessment and Plan Plan: 1 small bowel/gastric outlet obstruction secondary to scarring of gastrojejunostomy, status post exploratory laparotomy, lysis of adhesions and enteral enterostomy. Postoperative day # 2 #2 Recent acute bowel obstruction and exploratory laparotomy with loop gastrojejunostomy approximately 10-14 days ago. Status post EGD on 07/25/2016. #3 Bibasilar pneumonia most likely aspiration. This has improved since admission, continues to have a limited atelectasis in the right lower lobe, and the patient needs more aggressive incentive spirometry and pulmonary toileting and rehab. #4 History of developmental delay with mental challenge. Recommendation: Continue current antibiotics, once the patient is able to take oral meds, we can switch him to Augmentin. And once cleared by surgery for discharge, patient will be cleared by all his also for discharge. Time with Patient: Less than 30
[2016-07-29] MEDS: MAGNESIUM SULFATE-D5W PMX 1 GM in DEXTROSE/WATER 1 100ML.BAG IVPB SCH ×3 (15:55→20:05)
[2016-07-29] MEDS ORDERED: SODIUM PHOSPHATE 10 MMOL in SODIUM CHLORIDE 0.9% 100 ML IVPB ONE (16:00)
[2016-07-29] MEDS: POTASSIUM CHLORIDE 10 MEQ in WATER FOR INJECTION 1 100ML.BAG IVPB SCH ×2 (17:50→20:04)
[2016-07-29 18:18] LABS: Glucose,Whole Blood 110 mg/dL (75-99)
[2016-07-29 23:21] LABS: Glucose,Whole Blood 117 mg/dL (75-99)
[2016-07-30 00:20] LABS: Glucose,Whole Blood 113 mg/dL (75-99)
[2016-07-30] MEDS: 1: MVI, ADULT NO.4 WITH VIT K 10 ML, TRACE (CONC-1ML/DOSE) 1 ML, POTASSIUM CHLORIDE 20 M IV SCH ×8 (01:58→16:50)
[2016-07-30] MEDS: SODIUM CHLORIDE 0.9% 1,000 ML IV SCH ×3 (01:58→19:56)
[2016-07-30] MEDS: LACTATED RINGERS 1,000 ML IV SCH ×2 (03:36→22:21)
[2016-07-30 05:06] LABS: Glucose,Whole Blood 128 mg/dL (75-99)
[2016-07-30] MEDS: INSULIN LISPRO (humaLOG) 300 UNIT/3 ML VIAL SQ SCH ×4 (05:06→23:26)
[2016-07-30] MEDS: METOCLOPRAMIDE 5 MG/ML 2 ML VIAL IVP SCH ×4 (05:07→23:26)
[2016-07-30 07:36] LABS: Basophils % (A) 0 %; CH 30.3; CHCM 33.4; Eosinophils # (A) 0.3 k/uL (0-0.7); Eosinophils % (A) 4 %; HCT 37.4 % (39.0-53.0); HDW 2.68; HGB 12.2 gm/dL (13.0-17.5); Luc # (Auto) 0.13; Luc % (Auto) 2; Lymphocytes # (A) 0.8 k/uL (1.0-4.8); Lymphocytes % (A) 12 %; MCH 29.6 pg (25.0-35.0); MCHC 32.5 g/dL (31.0-37.0); MCV 91.1 fL (80.0-100.0); Mean Platelet Volume 7.9; Monocytes # (A) 0.6 k/uL (0-1.0); Monocytes % (A) 8 %; Neutrophils # (A) 5.3 k/uL (1.3-7.7); Neutrophils % (A) 75 %; RBC 4.11 m/uL (4.30-5.90); RDW 13.6 % (11.5-15.5); WBC 7.1 k/uL (3.8-10.6); WBC (Perox) 7.36
[2016-07-30 07:55] LABS: Ionized Calcium 4.9 mg/dL (4.5-5.3)
[2016-07-30] MEDS: metroNIDAZOLE-NS PMX 500 MG in SALINE 1 100ML.BAG IVPB SCH ×3 (07:56→23:26)
[2016-07-30] MEDS: PANTOPRAZOLE 40 MG/10 ML VIAL IV SCH (07:57)
[2016-07-30] MEDS: HEPARIN SODIUM,PORCINE 5,000 UNIT/ML 1 ML VIAL SQ SCH ×2 (07:57→19:55)
[2016-07-30 08:29] LABS: ALT 33 U/L (21-72); AST 21 U/L (17-59); Alkaline Phosphatase 43 U/L (38-126); Anion Gap 8 mmol/L; Blood Urea Nitrogen 19 mg/dL (9-20); Calcium 7.5 mg/dL (8.4-10.2); Carbon Dioxide 24 mmol/L (22-30); Chloride 107 mmol/L (98-107); Glucose 125 mg/dL (74-99); Magnesium 2.1 mg/dL (1.6-2.3); Non-African American GFR(MDRD) >60 (>60 ml/min/1.73 sqM); Phosphorous 2.9 mg/dL (2.5-4.5); Potassium 3.7 mmol/L (3.5-5.1); Sodium 139 mmol/L (137-145); Total Bilirubin 0.3 mg/dL (0.2-1.3); Total Protein 4.1 g/dL (6.3-8.2)
[2016-07-30] MEDS: LEVOFLOXACIN 750MG-D5W PMX 750 MG in DEXTROSE/WATER 1 150ML.BAG IVPB SCH (09:52)
[2016-07-30] MEDS: HYDROmorphone 1 MG/ML 1 ML SYRINGE IV PRN (10:57)
[2016-07-30 11:36] LABS: Glucose,Whole Blood 116 mg/dL (75-99)
[2016-07-30] MEDS: POTASSIUM CHLORIDE 10 MEQ in WATER FOR INJECTION 1 100ML.BAG IVPB SCH ×2 (11:37→14:29)
--- NOTE | 2016-07-30 11:42 | P.PN ---
Progress Note - Text Patient continues to improve. He is sitting up in a chair. Looks comfortable. In no distress. Did pass some flatus. Physical examination: He is afebrile. Vitals are stable. Abdomen is soft with usual postoperative tenderness improving. Incision looks fine. LEOBARDO drain is serosanguineous. Impression stable postoperative course improving with now passage of some flatus. Recommendation can probably DC the NG tube tomorrow. Also his Bills. Increase activity.
--- NOTE | 2016-07-30 12:00 | P.PN ---
Subjective Patient presented with small bowel obstruction. EGD completed showing patent gastrojejunostomy and patent pylorus with Bilious fluid in stomach. Patient status post exploratory laparotomy with lysis of adhesions and enteral enterostomy. Patient sitting in bedside chair. Pain is tolerable. Still has NG tube in place. Has been passing gas. Denies any chest pain or shortness. Objective - Vital Signs Vital signs: Vital Signs Temp 97.9 F 07/30/16 07:37 Pulse 61 07/30/16 07:37 Resp 14 07/30/16 07:37 BP 136/80 07/30/16 07:37 Pulse Ox 96 07/30/16 07:37 Intake & Output 07/29/16 07/30/16 07/30/16 18:59 06:59 18:59 Intake Total 1190 Output Total 658 810 Balance 532 -810 Intake: IV 700 Sodium Chloride 0.9% 1, 700 000 ml @ 100 mls/hr IV . Q10H [facility] Rx#:[id number] Intake, IV Titration 490 Amount Potassium Chloride 20 meq 490 In Amino Acid 5%-D25w+ Lytes*E* 1,000 ml @ 70 mls/hr IV .BY DURATION [facility] Rx#:[id number] Output: Gastric Drainage 50 Drainage 158 60 Abdomen 158 60 Urine 500 700 Uretheral (Bills) 500 700 Other: Voiding Method Indwelling Catheter Indwelling Catheter Indwelling Catheter - Exam Head normocephalic Neck supple Lungs clear to auscultation bilaterally no wheezing or crackles Heart regular rate and rhythm S1-S2, no rub or gallop Abdomen is soft nondistended. Positive bowel sounds. Dried blood at the distal aspect of the bandage. NG tube in place Extremities no edema Neuro awake and alert and sitting at bedside chair - Labs CBC & Chem 7: 07/30/16 06:45 07/30/16 06:45 Labs: Abnormal Lab Results - Last 24 Hours (Table) 07/29/16 07/29/16 07/29/16 Range/Units 12:20 18:14 23:20 RBC (4.30-5.90) m/uL Hgb (13.0-17.5) gm/dL Hct (39.0-53.0) % Lymphocytes # (1.0-4.8) k/uL Creatinine (0.66-1.25) mg/dL Glucose (74-99) mg/dL POC Glucose (mg/dL) 102 H 110 H 117 H (75-99) mg/dL Calcium (8.4-10.2) mg/dL Total Protein (6.3-8.2) g/dL Albumin (3.5-5.0) g/dL 07/30/16 07/30/16 07/30/16 Range/Units 00:19 05:05 06:45 RBC 4.11 L (4.30-5.90) m/uL Hgb 12.2 L (13.0-17.5) gm/dL Hct 37.4 L (39.0-53.0) % Lymphocytes # 0.8 L (1.0-4.8) k/uL Creatinine (0.66-1.25) mg/dL Glucose (74-99) mg/dL POC Glucose (mg/dL) 113 H 128 H (75-99) mg/dL Calcium (8.4-10.2) mg/dL Total Protein (6.3-8.2) g/dL Albumin (3.5-5.0) g/dL 07/30/16 07/30/16 Range/Units 06:45 11:33 RBC (4.30-5.90) m/uL Hgb (13.0-17.5) gm/dL Hct (39.0-53.0) % Lymphocytes # (1.0-4.8) k/uL Creatinine 0.60 L (0.66-1.25) mg/dL Glucose 125 H (74-99) mg/dL POC Glucose (mg/dL) 116 H (75-99) mg/dL Calcium 7.5 L (8.4-10.2) mg/dL Total Protein 4.1 L (6.3-8.2) g/dL Albumin 2.0 L (3.5-5.0) g/dL Assessment and Plan Plan: 1. Small bowel obstruction with gastric outlet obstruction secondary to scarring of gastrojejunostomy: with recent exploratory laparoscopy and loop gastrojejunostomy approximately 10 days ago: NG tube in place. Patient was seen and evaluated by surgery. Status post EGD showing patent gastrojejunostomy , patent pylorus and bilious fluid in stomach. status post exposure laparotomy with lysis of adhesions and enteral enterostomy on 07/27/2016. Surgery following planning on possibly removing NG tube tomorrow. 2. Right facial droop with suspected TIA: Seen and evaluated by neurology. 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 Computed tomography scan of the brain showed no acute intracranial process. Echocardiogram of the heart and carotid Doppler normal for his age. We will need to start aspirin awaiting clearance from surgery. Neurology following 3. Possible aspiration pneumonia: started on IV Levaquin and Zosyn. Zosyn switched to Flagyl yesterday given worsening leukopenia. Will finish 8 days of antibiotic. Pulmonology consulted, appreciate recommendation 4. Developmental delay/mental retardation 5. DVT prophylaxis with subcu heparin 6. Leukopenia improved after switching Zosyn and Flagyl 8. Severe protein calorie malnutrition patient currently receiving PPN
--- NOTE | 2016-07-30 16:05 | P.PN ---
Subjective Principal diagnosis: Acute small bowel obstruction and bilateral pneumonia most likely aspiration. This is a 76-year-old white male with history of multiple medical problems including mental retardation, developmental delay, patient was recently discharged from the hospital after he underwent laparoscopic loop gastrojejunostomy because of gastric outlet obstruction. Patient was readmitted yesterday with mostly symptoms of epigastric discomfort, nausea and vomiting for the last several days. Workup in the ER included a CT of the abdomen which was consistent with small bowel obstruction. Patient was admitted , seen by general surgery on consultation, and conservative measures including nasogastric tube decompression is being favored at present. In the meantime patient had a chest x-ray which showed evidence of multifocal infiltrates involving mostly bilateral lower lobes, and most likely consistent with aspiration. In the meantime the patient was placed on proper antibiotics including Levaquin and Zosyn. Considering his abnormal chest x-ray, this consult was initiated. Patient is an extremely poor historian, and he is mentally retarded. Patient was reevaluated today on 07/25/2016, seems to be a bit better, x-rays of the abdomen showed nonspecific gas pattern, patient has no abdominal pain, I recently he has less distention, and no significant abdominal findings. His last chest x-ray was suggestive of aspiration pneumonia, and he remains on antibiotics in the form of Levaquin and Zosyn. Labs were reviewed, relatively normal CBC noted. And relatively normal basic metabolic profile was also noted. However the patient is developing a bit of anion gap metabolic acidosis. Reevaluated today on 07/26/2016, patient is status post EGD and he was found to have a patent gastrojejunostomy and patent pylorus with findings of bilious fluid in the gastrojejunostomy. The distal end of the gastrojejunostomy could not be entered easily. Patient continues to have a nasogastric tube in place, and dark bilious material is draining continuously. Pulmonary-mata patient is about the same, denies any pulmonary symptoms, follow-up chest x-ray was ordered to be done in a.m. for follow-up on his aspiration pneumonia picture. Patient was reevaluated today on 07/28/2016, seems to be doing quite well, he is postoperative day #1, patient underwent laparotomy, lysis of adhesions and revision of his colostomy with enterostomy. This was done by Dr. Villasenor. Pulmonary-mata no cough no wheezing no shortness of breath, I plan to repeat a chest x-ray for follow-up on his by basilar pneumonia which was felt to be aspiration pneumonia unless proven otherwise. Labs today were reviewed, normal CBC is noted. And normal basic metabolic profile is noted. Patient was reevaluated on 07/29/2016, his postoperative day #2, underwent laparotomy, lysis of adhesions, and revision of his colostomy with enterostomy. Pulmonary-mata, his infiltrates have significantly improved, however he has a minimal limited atelectasis in the right lower lobe with a right hemidiaphragm elevation. Patient denies any pulmonary symptoms. I believe that will improve with incentive spirometry, however the patient does very poorly with incentive spirometry instructions. Labs were reviewed. CBC is normal. Basic metabolic profile is normal. Nasogastric tube remains in place. Reevaluated today on 07/30/2016, his postoperative day #3. Patient is doing well , continues to have nasogastric tube in place, his lungs are improved based on the last chest x-ray, minimal limited atelectasis was noted in the right lower lobe with hemidiaphragm elevation possibly related to paralyzed diaphragm. Overall the patient has made a significant improvement. Pulmonary-mata patient could be switched to oral antibiotics when cleared by surgery. Objective - Vital Signs Vital signs: Vital Signs Temp 98.2 F 07/30/16 13:40 Pulse 64 07/30/16 13:40 Resp 16 07/30/16 13:40 BP 140/71 07/30/16 13:40 Pulse Ox 98 07/30/16 13:40 Intake & Output 07/29/16 07/30/16 07/30/16 18:59 06:59 18:59 Intake Total 1190 660 Output Total 658 810 Balance 532 -810 660 Weight 68.9 kg Intake: IV 700 Sodium Chloride 0.9% 1, 700 000 ml @ 100 mls/hr IV . Q10H [facility] Rx#:[id number] Intake, IV Titration 490 660 Amount Potassium Chloride 10 meq 100 In Water For Injection 1 100ml.bag @ 100 mls/hr IVPB Q1H [facility] Rx#: [id number] Potassium Chloride 20 meq 490 560 In Amino Acid 5%-D25w+ Lytes*E* 1,000 ml @ 70 mls/hr IV .BY DURATION [facility] Rx#:[id number] Output: Gastric Drainage 50 Drainage 158 60 Abdomen 158 60 Urine 500 700 Uretheral (Bills) 500 700 Other: Voiding Method Indwelling Catheter Indwelling Catheter Indwelling Catheter - Exam Physical Exam: Revealed a 76-year-old white male in no form of respiratory distress. Nasogastric tube remains in place, HEENT:[Neck is supple.] [No neck masses.] [No thyromegaly.] [No JVD. Chest: [Crackles at the bases were noted bilaterally.] Cardiac Exam: [Normal S1 and S2, no S3 gallop, no murmur.] Abdomen: [Slightly distended, nontender, no megaly, no rebound, no guarding, normal bowel sounds.] Extremities: [No clubbing, no edema, no cyanosis.] Neurological Exam: [Left-sided facial droop is noted, patient is mentally retarded - Labs CBC & Chem 7: 07/30/16 06:45 07/30/16 06:45 Labs: Abnormal Lab Results - Last 24 Hours (Table) 07/29/16 07/29/16 07/30/16 Range/Units 18:14 23:20 00:19 RBC (4.30-5.90) m/uL Hgb (13.0-17.5) gm/dL Hct (39.0-53.0) % Lymphocytes # (1.0-4.8) k/uL Creatinine (0.66-1.25) mg/dL Glucose (74-99) mg/dL POC Glucose (mg/dL) 110 H 117 H 113 H (75-99) mg/dL Calcium (8.4-10.2) mg/dL Total Protein (6.3-8.2) g/dL Albumin (3.5-5.0) g/dL 07/30/16 07/30/16 07/30/16 Range/Units 05:05 06:45 06:45 RBC 4.11 L (4.30-5.90) m/uL Hgb 12.2 L (13.0-17.5) gm/dL Hct 37.4 L (39.0-53.0) % Lymphocytes # 0.8 L (1.0-4.8) k/uL Creatinine 0.60 L (0.66-1.25) mg/dL Glucose 125 H (74-99) mg/dL POC Glucose (mg/dL) 128 H (75-99) mg/dL Calcium 7.5 L (8.4-10.2) mg/dL Total Protein 4.1 L (6.3-8.2) g/dL Albumin 2.0 L (3.5-5.0) g/dL 07/30/16 Range/Units 11:33 RBC (4.30-5.90) m/uL Hgb (13.0-17.5) gm/dL Hct (39.0-53.0) % Lymphocytes # (1.0-4.8) k/uL Creatinine (0.66-1.25) mg/dL Glucose (74-99) mg/dL POC Glucose (mg/dL) 116 H (75-99) mg/dL Calcium (8.4-10.2) mg/dL Total Protein (6.3-8.2) g/dL Albumin (3.5-5.0) g/dL Assessment and Plan Plan: 1 small bowel/gastric outlet obstruction secondary to scarring of gastrojejunostomy, status post exploratory laparotomy, lysis of adhesions and enteral enterostomy. Postoperative day # 3 #2 Recent acute bowel obstruction and exploratory laparotomy with loop gastrojejunostomy approximately 10-14 days ago. Status post EGD on 07/25/2016. #3 Bibasilar pneumonia most likely aspiration. This has improved since admission, continues to have a limited atelectasis in the right lower lobe, and the patient needs more aggressive incentive spirometry and pulmonary toileting and rehab. #4 History of developmental delay with mental challenge. Recommendation: Continue current antibiotics, once the patient is able to take oral meds, we can switch him to Augmentin. And once cleared by surgery for discharge, patient will be cleared by all his also for discharge. Time with Patient: Less than 30
[2016-07-30 18:10] LABS: Glucose,Whole Blood 123 mg/dL (75-99)
[2016-07-30] MEDS: FAT EMULSION 20% 250 ML in EMPTY BAG 1 BAG IV SCH (19:49)
[2016-07-30 23:27] LABS: Glucose,Whole Blood 130 mg/dL (75-99)
[2016-07-31] MEDS: 1: MVI, ADULT NO.4 WITH VIT K 10 ML, TRACE (CONC-1ML/DOSE) 1 ML, POTASSIUM CHLORIDE 20 M IV SCH ×4 (04:26)
[2016-07-31] MEDS: METOCLOPRAMIDE 5 MG/ML 2 ML VIAL IVP SCH ×4 (05:19→23:44)
[2016-07-31] MEDS: INSULIN LISPRO (humaLOG) 300 UNIT/3 ML VIAL SQ SCH ×4 (05:43→23:44)
[2016-07-31 05:45] LABS: Glucose,Whole Blood 112 mg/dL (75-99)
[2016-07-31] MEDS: LEVOFLOXACIN 750MG-D5W PMX 750 MG in DEXTROSE/WATER 1 150ML.BAG IVPB SCH (08:01)
[2016-07-31] MEDS: PANTOPRAZOLE 40 MG/10 ML VIAL IV SCH (08:04)
[2016-07-31] MEDS: HEPARIN SODIUM,PORCINE 5,000 UNIT/ML 1 ML VIAL SQ SCH ×2 (08:04→20:54)
[2016-07-31] MEDS: HYDROmorphone 1 MG/ML 1 ML SYRINGE IV PRN (08:19)
[2016-07-31 08:25] LABS: Anion Gap 7 mmol/L; Blood Urea Nitrogen 14 mg/dL (9-20); Calcium 7.5 mg/dL (8.4-10.2); Carbon Dioxide 26 mmol/L (22-30); Chloride 105 mmol/L (98-107); Glucose 116 mg/dL (74-99); Non-African American GFR(MDRD) >60 (>60 ml/min/1.73 sqM); Phosphorous 2.9 mg/dL (2.5-4.5); Potassium 3.8 mmol/L (3.5-5.1); Sodium 138 mmol/L (137-145)
[2016-07-31] MEDS: metroNIDAZOLE-NS PMX 500 MG in SALINE 1 100ML.BAG IVPB SCH (09:52)
[2016-07-31 11:42] LABS: Glucose,Whole Blood 115 mg/dL (75-99)
[2016-07-31] MEDS: POTASSIUM CHLORIDE 10 MEQ in WATER FOR INJECTION 1 100ML.BAG IVPB SCH ×2 (14:15→18:01)
--- NOTE | 2016-07-31 14:27 | P.PN ---
Subjective Patient was started on liquid diet today. He is feeling well. No concerns about up by nursing staff. Objective - Vital Signs Vital signs: Vital Signs Temp 98.0 F 07/31/16 07:00 Pulse 63 07/31/16 07:00 Resp 16 07/31/16 07:00 BP 142/72 07/31/16 07:00 Pulse Ox 96 07/31/16 07:00 Intake & Output 07/30/16 07/31/16 07/31/16 18:59 06:59 18:59 Intake Total 1670 Output Total 1335 Balance 1670 -1335 Weight 68.9 kg Intake: Intake, IV Titration 1670 Amount Potassium Chloride 10 meq 100 In Water For Injection 1 100ml.bag @ 100 mls/hr IVPB Q1H [facility] Rx#: [id number] Potassium Chloride 20 meq 1570 In Amino Acid 5%-D25w+ Lytes*E* 1,000 ml @ 70 mls/hr IV .BY DURATION [facility] Rx#:[id number] Output: Gastric Drainage 150 Drainage 85 Abdomen 85 Urine 1100 Uretheral (Bills) 300 Other: Voiding Method Indwelling Catheter Indwelling Catheter Indwelling Catheter # Voids 2 - Exam General: The patient is awake and alert, in no distress Eye: there is normal conjunctiva bilaterally. Neck: The neck is supple, there is no JVD. Cardiovascular: Normal S1-S2, no S3-S4, no murmurs. Respiratory: Lungs clear to auscultation bilaterally Gastrointestinal: Abdomen with mild tenderness to palpation Musculoskeletal: There is no pedal edema. Neurological:. Speech is normal. Skin: Skin is warm and dry - Labs CBC & Chem 7: 07/30/16 06:45 07/31/16 07:14 Labs: Abnormal Lab Results - Last 24 Hours (Table) 07/30/16 07/30/16 07/31/16 Range/Units 18:02 23:26 05:42 Creatinine (0.66-1.25) mg/dL Glucose (74-99) mg/dL POC Glucose (mg/dL) 123 H 130 H 112 H (75-99) mg/dL Calcium (8.4-10.2) mg/dL 07/31/16 07/31/16 Range/Units 07:14 11:38 Creatinine 0.65 L (0.66-1.25) mg/dL Glucose 116 H (74-99) mg/dL POC Glucose (mg/dL) 115 H (75-99) mg/dL Calcium 7.5 L (8.4-10.2) mg/dL Assessment and Plan Plan: 1. 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 Status post EGD showing patent gastrojejunostomy, patent pylorus and bilious fluid in stomach. During this admission, patient underwent exposure laparotomy with lysis of adhesions and enteral enterostomy on 07/27/2016. He is currently on liquid diet. 2. Right facial droop with suspected TIA: Seen and evaluated by neurology. 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 Computed tomography scan of the brain showed no acute intracranial process. Echocardiogram of the heart and carotid Doppler normal for his age. We will need to start aspirin awaiting clearance from surgery. Neurology following 3. Possible aspiration pneumonia: Finish 7 day course off IV Levaquin and Flagyl 4. Developmental delay/mental retardation 5. DVT prophylaxis with subcu heparin 6. Severe protein calorie malnutrition
--- NOTE | 2016-07-31 14:41 | P.PN ---
Subjective Patient is a 76-year-old male with past medical history of gastric outlet obstruction status post exploratory laparotomy with loop gastrojejunostomy on . Patient admitted with complaints of abdominal distention, nausea and vomiting, and decreased oral intake with evidence of small bowel obstruction. EGD with evidence of a patent gastrojejunostomy and patent pylorus with findings of bilious fluid in the gastrojejunostomy. On 07/27/2016, patient underwent exploratory laparotomy with lysis of adhesions and enteral enterostomy. Patient is currently evaluated at bedside, postop day #4. Patient complains of mild incisional pain. Denies nausea. Passing flatus without bowel movement. Urinating without difficulty. Nasogastric tube with 150 milliliters of bilious drainage last 24 hours. LEOBARDO drain with 40 mL of serosanguineous drainage the last 24 hours. Afebrile. Objective - Vital Signs Vital signs: Vital Signs Temp 98.0 F 07/31/16 07:00 Pulse 63 07/31/16 07:00 Resp 16 07/31/16 07:00 BP 142/72 07/31/16 07:00 Pulse Ox 96 07/31/16 07:00 Intake & Output 07/30/16 07/31/16 07/31/16 18:59 06:59 18:59 Intake Total 1670 Output Total 1335 Balance 1670 -1335 Weight 68.9 kg Intake: Intake, IV Titration 1670 Amount Potassium Chloride 10 meq 100 In Water For Injection 1 100ml.bag @ 100 mls/hr IVPB Q1H [facility] Rx#: [id number] Potassium Chloride 20 meq 1570 In Amino Acid 5%-D25w+ Lytes*E* 1,000 ml @ 70 mls/hr IV .BY DURATION [facility] Rx#:[id number] Output: Gastric Drainage 150 Drainage 85 Abdomen 85 Urine 1100 Uretheral (Bills) 300 Other: Voiding Method Indwelling Catheter Indwelling Catheter Indwelling Catheter # Voids 2 - Exam GENERAL: Pt awake and alert, well-appearing, well-nourished, and in no acute distress. ENT: Dry mucous membranes. Nasogastric tube to low continuous suction. HEART: Heart S1, S2, no S3 or S4. Regular rate and rhythm. No murmurs, rubs or gallops. ABDOMEN: Soft, mild tenderness, nondistended, active bowel sounds. No guarding , no rebound. No masses or organomegaly appreciated. Surgical dressing dry and intact. LEOBARDO drain with minimal serosanguineous drainage, compressed and intact. - Labs CBC & Chem 7: 07/30/16 06:45 07/31/16 07:14 Labs: Abnormal Lab Results - Last 24 Hours (Table) 07/30/16 07/30/16 07/31/16 Range/Units 18:02 23:26 05:42 Creatinine (0.66-1.25) mg/dL Glucose (74-99) mg/dL POC Glucose (mg/dL) 123 H 130 H 112 H (75-99) mg/dL Calcium (8.4-10.2) mg/dL 07/31/16 07/31/16 Range/Units 07:14 11:38 Creatinine 0.65 L (0.66-1.25) mg/dL Glucose 116 H (74-99) mg/dL POC Glucose (mg/dL) 115 H (75-99) mg/dL Calcium 7.5 L (8.4-10.2) mg/dL Assessment and Plan Plan: Impression: 1. Status post exploratory laparotomy with lysis of adhesions and enteral enterostomy on 07/27/2016. 2. Small bowel and gastric outlet obstruction secondary to scarring of gastric jejunostomy. 3. History of gastric outlet obstruction status post exploratory laparoscopy and loop gastrojejunostomy on 07/10/2016. 4. Mild malnutrition secondary to poor oral intake secondary to small bowel obstruction and nothing by mouth status. Plan: Discontinue nasogastric tube. Start patient on full liquid diet. Continue TPN for another 24 hours. Continue IV fluids. Continue drain management. Continue supportive treatment and pain management. Continue GI and DVT prophylaxis. Continue to follow with medical service and consultants. Repeat CBC and BMP in a.m. The above impression and plan have been discussed and directed by Dr. Villasenor. Charissa AGUIRRE acting as scribe for Dr. Villasenor.
--- NOTE | 2016-07-31 15:15 | P.PN ---
Subjective This is a 76-year-old gentleman with a history of multiple medical problems including being mentally challenged, developmentally delayed. He also has a history of gastric outlet obstruction and had undergone a laparoscopic loop gastrojejunostomy. The patient was readmitted on 07/23/2016 with episodes of epigastric discomfort, nausea and vomiting for several days prior to his arrival. A computed tomography scan of the abdomen was consistent with small bowel obstruction. He had undergone exploratory laparotomy by Dr. Villasenor lysis of adhesions and enteral enterostomy on 07/25/2016. He was no evidence of bowel obstruction. He is seen again today 07/31/2016 in follow-up. He is currently sitting up in the chair at the bedside. He is awake and alert in no acute distress. He is maintaining good O2 saturations in the mid 90s on room air. Currently afebrile. Nasogastric tube remains in place. LEOBARDO drain remains in place. He is being nourished with TPN/lipids. Objective - Vital Signs Vital signs: Vital Signs Temp 97.9 F 07/31/16 14:48 Pulse 68 07/31/16 14:48 Resp 16 07/31/16 14:48 BP 117/72 07/31/16 14:48 Pulse Ox 95 07/31/16 14:48 Intake & Output 07/30/16 07/31/16 07/31/16 18:59 06:59 18:59 Intake Total 1670 500 Output Total 1335 Balance 1670 -1335 500 Weight 68.9 kg Intake: Intake, IV Titration 1670 Amount Potassium Chloride 10 meq 100 In Water For Injection 1 100ml.bag @ 100 mls/hr IVPB Q1H [facility] Rx#: [id number] Potassium Chloride 20 meq 1570 In Amino Acid 5%-D25w+ Lytes*E* 1,000 ml @ 70 mls/hr IV .BY DURATION [facility] Rx#:[id number] Oral 500 Output: Gastric Drainage 150 Drainage 85 Abdomen 85 Urine 1100 Uretheral (Bills) 300 Other: Voiding Method Indwelling Catheter Indwelling Catheter Indwelling Catheter # Voids 2 - Exam GENERAL EXAM: Mentally challenged. Alert, comfortable in no apparent distress. HEAD: Normocephalic. Left-sided facial droop. EYES: Normal reaction of pupils, equal size. NOSE: Clear with pink turbinates. Nasogastric tube secured in place. THROAT: No erythema or exudates. NECK: No masses, no JVD. CHEST: No chest wall deformity. LUNGS: Equal air entry with faint crackles in bilateral bases. CVS: S1 and S2 normal with no audible murmurs, regular rhythm. ABDOMEN: Abdominal dressing dry and intact. Extremities: There is no significant peripheral edema. No clubbing, no cyanosis. Peripheral pulses are intact. - Labs CBC & Chem 7: 07/30/16 06:45 07/31/16 07:14 Labs: Abnormal Lab Results - Last 24 Hours (Table) 07/30/16 07/30/16 07/31/16 Range/Units 18:02 23:26 05:42 Creatinine (0.66-1.25) mg/dL Glucose (74-99) mg/dL POC Glucose (mg/dL) 123 H 130 H 112 H (75-99) mg/dL Calcium (8.4-10.2) mg/dL 07/31/16 07/31/16 Range/Units 07:14 11:38 Creatinine 0.65 L (0.66-1.25) mg/dL Glucose 116 H (74-99) mg/dL POC Glucose (mg/dL) 115 H (75-99) mg/dL Calcium 7.5 L (8.4-10.2) mg/dL Assessment and Plan Plan: Impression: #1 Small bowel/gastric outlet obstruction secondary to scarring of gastrojejunostomy, status post exploratory laparotomy, lysis of adhesions and enteral enterostomy. #2 Recent acute bowel obstruction and exploratory laparotomy with loop gastrojejunostomy approximately 10-14 days ago. Status post EGD on 07/25/2016. #3 Bibasilar pneumonia most likely aspiration. #4 History of developmental delay with mental challenge. Plan: The patient was seen and evaluated by Dr. Flores. He is stable from the pulmonary standpoint. He is maintaining good O2 saturations on room air. We'll continue to follow make further recommendations based on his clinical status.
[2016-07-31 17:18] LABS: Glucose,Whole Blood 126 mg/dL (75-99)
[2016-07-31] MEDS: 1: MVI, ADULT NO.4 WITH VIT K 10 ML, TRACE (CONC-1ML/DOSE) 1 ML, POTASSIUM CHLORIDE 30 M IV SCH ×4 (18:01)
[2016-07-31] MEDS: SODIUM CHLORIDE 0.9% 1,000 ML IV SCH ×2 (18:49→19:39)
[2016-07-31 23:45] LABS: Glucose,Whole Blood 103 mg/dL (75-99)
[2016-08-01] MEDS: LACTATED RINGERS 1,000 ML IV SCH (02:44)
[2016-08-01] MEDS: SODIUM CHLORIDE 0.9% 1,000 ML IV SCH ×2 (04:58→19:12)
[2016-08-01] MEDS: METOCLOPRAMIDE 5 MG/ML 2 ML VIAL IVP SCH ×3 (05:31→18:19)
[2016-08-01] MEDS: INSULIN LISPRO (humaLOG) 300 UNIT/3 ML VIAL SQ SCH ×3 (05:39→17:12)
[2016-08-01 05:41] LABS: Glucose,Whole Blood 118 mg/dL (75-99)
[2016-08-01 07:42] LABS: Anion Gap 9 mmol/L; Blood Urea Nitrogen 16 mg/dL (9-20); Calcium 7.8 mg/dL (8.4-10.2); Carbon Dioxide 26 mmol/L (22-30); Chloride 105 mmol/L (98-107); Glucose 108 mg/dL (74-99); Non-African American GFR(MDRD) >60 (>60 ml/min/1.73 sqM); Phosphorous 3.3 mg/dL (2.5-4.5); Potassium 4.4 mmol/L (3.5-5.1); Sodium 140 mmol/L (137-145); Triglycerides 62 mg/dL (<150)
[2016-08-01 07:55] LABS: Basophils % (A) 0 %; CH 30.1; Eosinophils # (A) 0.3 k/uL (0-0.7); Eosinophils % (A) 3 %; HCT 37.1 % (39.0-53.0); HDW 2.59; HGB 12.2 gm/dL (13.0-17.5); Luc # (Auto) 0.16; Luc % (Auto) 2; Lymphocytes # (A) 1.1 k/uL (1.0-4.8); Lymphocytes % (A) 15 %; MCH 30.2 pg (25.0-35.0); MCHC 32.9 g/dL (31.0-37.0); MCV 91.6 fL (80.0-100.0); Monocytes # (A) 0.5 k/uL (0-1.0); Monocytes % (A) 6 %; Neutrophils # (A) 5.5 k/uL (1.3-7.7); Neutrophils % (A) 73 %; RBC 4.05 m/uL (4.30-5.90); RDW 13.7 % (11.5-15.5); WBC 7.5 k/uL (3.8-10.6); WBC (Perox) 8.01
[2016-08-01] MEDS: 1: MVI, ADULT NO.4 WITH VIT K 10 ML, TRACE (CONC-1ML/DOSE) 1 ML, POTASSIUM CHLORIDE 30 M IV SCH ×4 (08:48)
[2016-08-01] MEDS: PANTOPRAZOLE 40 MG/10 ML VIAL IV SCH (08:50)
[2016-08-01] MEDS: HEPARIN SODIUM,PORCINE 5,000 UNIT/ML 1 ML VIAL SQ SCH ×2 (08:50→20:49)
--- NOTE | 2016-08-01 11:13 | P.PN ---
Subjective Patient is doing well today. No events overnight. Objective - Vital Signs Vital signs: Vital Signs Temp 97.9 F 08/01/16 07:00 Pulse 62 08/01/16 08:00 Resp 16 08/01/16 08:00 BP 117/56 08/01/16 07:00 Pulse Ox 97 08/01/16 07:00 Intake & Output 07/31/16 08/01/16 08/01/16 18:59 06:59 18:59 Intake Total 700 Output Total 30 30 Balance 670 -30 Intake: IV 200 Levofloxacin 750Mg-D5w 100 Pmx 750 mg In Dextrose/ Water 1 150ml.bag @ 100 mls/hr IVPB Q24HR [facility] Rx# :[id number] metroNIDAZOLE-NS PMX 500 100 mg In Saline 1 100ml.bag @ 100 mls/hr IVPB Q8HR [facility] Rx#:[id number] Oral 500 Output: Drainage 30 30 Abdomen 30 30 Other: Voiding Method Toilet Toilet Toilet Urinal Urinal # Voids 2 1 1 - Exam General: The patient is awake and alert, in no distress Eye: there is normal conjunctiva bilaterally. Neck: The neck is supple, there is no JVD. Cardiovascular: Normal S1-S2, no S3-S4, no murmurs. Respiratory: Lungs clear to auscultation bilaterally Gastrointestinal: Abdomen with mild tenderness to palpation Musculoskeletal: There is no pedal edema. Neurological:. Speech is normal. Skin: Skin is warm and dry - Labs CBC & Chem 7: 08/01/16 07:00 08/01/16 07:00 Labs: Abnormal Lab Results - Last 24 Hours (Table) 07/31/16 07/31/16 07/31/16 Range/Units 11:38 17:16 23:43 RBC (4.30-5.90) m/uL Hgb (13.0-17.5) gm/dL Hct (39.0-53.0) % Glucose (74-99) mg/dL POC Glucose (mg/dL) 115 H 126 H 103 H (75-99) mg/dL Calcium (8.4-10.2) mg/dL 08/01/16 08/01/16 08/01/16 Range/Units 05:38 07:00 07:00 RBC 4.05 L (4.30-5.90) m/uL Hgb 12.2 L (13.0-17.5) gm/dL Hct 37.1 L (39.0-53.0) % Glucose 108 H (74-99) mg/dL POC Glucose (mg/dL) 118 H (75-99) mg/dL Calcium 7.8 L (8.4-10.2) mg/dL Assessment and Plan Plan: 1. 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 Status post EGD showing patent gastrojejunostomy, patent pylorus and bilious fluid in stomach. During this admission, patient underwent exposure laparotomy with lysis of adhesions and enteral enterostomy on 07/27/2016. He is currently on liquid diet. 2. Right facial droop with suspected TIA: Seen and evaluated by neurology. 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 Computed tomography scan of the brain showed no acute intracranial process. Echocardiogram of the heart and carotid Doppler normal for his age. We will need to start aspirin awaiting clearance from surgery. Neurology following 3. Possible aspiration pneumonia: Finished 7 day course off IV Levaquin and Flagyl 4. Developmental delay/mental retardation 5. DVT prophylaxis with subcu heparin 6. Severe protein calorie malnutrition Wean off TPN today. Encouraged ambulation. Patient is passing gas but not having bowel movement as of yet. We will continue to monitor. Possible discharge within the next day or 2.
--- NOTE | 2016-08-01 11:55 | P.PN ---
Subjective Progress note dated 08/01/2016 This is a 76-year-old patient who was seen again on August 01 as well as on the third. Sitting up at the bedside. Doing relatively well. No acute distress. Saturations are excellent. Afebrile. NG tube in place. LEOBARDO drain remains in place. He is receiving TPN and lipids. Vital signs are very stable. He has no complaints today. Objective - Vital Signs Vital signs: Vital Signs Temp 97.9 F 08/01/16 07:00 Pulse 62 08/01/16 08:00 Resp 16 08/01/16 08:00 BP 117/56 08/01/16 07:00 Pulse Ox 97 08/01/16 07:00 Intake & Output 07/31/16 08/01/16 08/01/16 18:59 06:59 18:59 Intake Total 700 Output Total 30 30 Balance 670 -30 Intake: IV 200 Levofloxacin 750Mg-D5w 100 Pmx 750 mg In Dextrose/ Water 1 150ml.bag @ 100 mls/hr IVPB Q24HR [facility] Rx# :[id number] metroNIDAZOLE-NS PMX 500 100 mg In Saline 1 100ml.bag @ 100 mls/hr IVPB Q8HR [facility] Rx#:[id number] Oral 500 Output: Drainage 30 30 Abdomen 30 30 Other: Voiding Method Toilet Toilet Toilet Urinal Urinal # Voids 2 1 1 - Exam No acute distress, oriented 3. HEENT examination is grossly unremarkable. Mucous membranes are moist. He's had a left facial droop. Neck supple. Full range of motion. No adenopathy or thyromegaly. Neck veins are flat. Cardiovascular examination reveals regular rhythm rate. S1-S2 normal. Lungs reveal a few scattered mild rhonchi. No wheezes. No crackles. Abdomen soft bowel sounds are heard. Extremities are intact. - Labs CBC & Chem 7: 08/01/16 07:00 08/01/16 07:00 Labs: Abnormal Lab Results - Last 24 Hours (Table) 07/31/16 07/31/16 08/01/16 Range/Units 17:16 23:43 05:38 RBC (4.30-5.90) m/uL Hgb (13.0-17.5) gm/dL Hct (39.0-53.0) % Glucose (74-99) mg/dL POC Glucose (mg/dL) 126 H 103 H 118 H (75-99) mg/dL Calcium (8.4-10.2) mg/dL 08/01/16 08/01/16 Range/Units 07:00 07:00 RBC 4.05 L (4.30-5.90) m/uL Hgb 12.2 L (13.0-17.5) gm/dL Hct 37.1 L (39.0-53.0) % Glucose 108 H (74-99) mg/dL POC Glucose (mg/dL) (75-99) mg/dL Calcium 7.8 L (8.4-10.2) mg/dL Assessment and Plan (1) Pneumonia of both lower lobes Status: Acute (2) Small bowel obstruction Status: Acute (3) Transient ischemic attack (TIA) Status: Acute (4) Gastric outlet obstruction Status: Acute (5) Pneumonia Status: Acute (6) Mental retardation Status: Chronic Plan: Plan dated 08/01/2016 The patient was seen and evaluated. Medications labs are all reviewed. He seems very stable from the pulmonary standpoint for. From our perspective could be discharged. There may be some other issues keeping him here in the hospital. No issues mentioned test today. Seems pretty stable. Time with Patient: Less than 30
[2016-08-01 12:20] LABS: Glucose,Whole Blood 109 mg/dL (75-99)
--- NOTE | 2016-08-01 16:25 | P.PN ---
Subjective Patient is a 76-year-old male with past medical history of gastric outlet obstruction status post exploratory laparotomy with loop gastrojejunostomy on . Patient admitted with complaints of abdominal distention, nausea and vomiting, and decreased oral intake with evidence of small bowel obstruction. EGD with evidence of a patent gastrojejunostomy and patent pylorus with findings of bilious fluid in the gastrojejunostomy. On 07/27/2016, patient underwent exploratory laparotomy with lysis of adhesions and enteral enterostomy. Patient is currently evaluated at bedside, postop day #5. Patient complains of mild incisional pain. Denies nausea or vomiting. Passing flatus without bowel movement. Urinating without difficulty. Tolerating full liquid diet. LEOBARDO drain with 20 mL of serosanguineous drainage the last 24 hours. T-max the last 24 hours 99.1. Objective - Vital Signs Vital signs: Vital Signs Temp 98.3 F 08/01/16 15:51 Pulse 65 08/01/16 15:51 Resp 16 08/01/16 15:51 BP 130/69 08/01/16 15:51 Pulse Ox 96 08/01/16 15:51 Intake & Output 07/31/16 08/01/16 08/01/16 18:59 06:59 18:59 Intake Total 700 450 Output Total 30 30 30 Balance 670 -30 420 Intake: IV 200 450 Levofloxacin 750Mg-D5w 100 150 Pmx 750 mg In Dextrose/ Water 1 150ml.bag @ 100 mls/hr IVPB Q24HR [facility] Rx# :[id number] Sodium Chloride 0.9% 1, 200 000 ml @ 100 mls/hr IV . Q10H [facility] Rx#:[id number] metroNIDAZOLE-NS PMX 500 100 100 mg In Saline 1 100ml.bag @ 100 mls/hr IVPB Q8HR [facility] Rx#:[id number] Oral 500 Output: Drainage 30 30 30 Abdomen 30 30 30 Other: Voiding Method Toilet Toilet Toilet Urinal Urinal # Voids 2 1 1 - Exam GENERAL: Pt awake and alert, well-appearing, well-nourished, and in no acute distress. ENT: Moist mucous membranes. HEART: Heart S1, S2, no S3 or S4. Regular rate and rhythm. No murmurs, rubs or gallops. ABDOMEN: Soft, mild tenderness, nondistended, active bowel sounds. No guarding , no rebound. No masses or organomegaly appreciated. Surgical dressing dry and intact. LEOBARDO drain with minimal serosanguineous drainage, compressed and intact. - Labs CBC & Chem 7: 08/01/16 07:00 08/01/16 07:00 Labs: Abnormal Lab Results - Last 24 Hours (Table) 07/31/16 07/31/16 08/01/16 Range/Units 17:16 23:43 05:38 RBC (4.30-5.90) m/uL Hgb (13.0-17.5) gm/dL Hct (39.0-53.0) % Glucose (74-99) mg/dL POC Glucose (mg/dL) 126 H 103 H 118 H (75-99) mg/dL Calcium (8.4-10.2) mg/dL 08/01/16 08/01/16 08/01/16 Range/Units 07:00 07:00 12:16 RBC 4.05 L (4.30-5.90) m/uL Hgb 12.2 L (13.0-17.5) gm/dL Hct 37.1 L (39.0-53.0) % Glucose 108 H (74-99) mg/dL POC Glucose (mg/dL) 109 H (75-99) mg/dL Calcium 7.8 L (8.4-10.2) mg/dL Assessment and Plan Plan: Impression: 1. Status post exploratory laparotomy with lysis of adhesions and enteral enterostomy on 07/27/2016. 2. Small bowel and gastric outlet obstruction secondary to scarring of gastric jejunostomy. 3. History of gastric outlet obstruction status post exploratory laparoscopy and loop gastrojejunostomy on 07/10/2016. 4. Mild malnutrition secondary to poor oral intake secondary to small bowel obstruction and nothing by mouth status. Plan: Continue full liquid diet. Wean TPN. Continue IV fluids. Continue drain management. Increase activity. Continue supportive treatment and pain management. Continue GI and DVT prophylaxis. Continue to follow with medical service and consultants. The above impression and plan have been discussed and directed by Dr. Villasenor. Charissa AGUIRRE acting as scribe for Dr. Villasenor.
[2016-08-01 17:08] LABS: Glucose,Whole Blood 93 mg/dL (75-99)
[2016-08-01 23:52] LABS: Glucose,Whole Blood 96 mg/dL (75-99)
[2016-08-02] MEDS: METOCLOPRAMIDE 5 MG/ML 2 ML VIAL IVP SCH ×2 (01:18→06:01)
[2016-08-02] MEDS: SODIUM CHLORIDE 0.9% 1,000 ML IV SCH ×2 (01:22→13:06)
[2016-08-02 07:30] LABS: Ionized Calcium 4.9 mg/dL (4.5-5.3)
[2016-08-02 08:00] VITALS: BP 120/69; PULSE 63; RESP 16; TEMP 98.8
[2016-08-02 08:23] LABS: Anion Gap 8 mmol/L; Blood Urea Nitrogen 16 mg/dL (9-20); Calcium 7.7 mg/dL (8.4-10.2); Carbon Dioxide 24 mmol/L (22-30); Chloride 106 mmol/L (98-107); Glucose 80 mg/dL (74-99); Magnesium 1.9 mg/dL (1.6-2.3); Non-African American GFR(MDRD) >60 (>60 ml/min/1.73 sqM); Phosphorous 3.3 mg/dL (2.5-4.5); Potassium 4.4 mmol/L (3.5-5.1); Sodium 138 mmol/L (137-145)
[2016-08-02] MEDS: LACTATED RINGERS 1,000 ML IV SCH (08:24)
[2016-08-02] MEDS: PANTOPRAZOLE 40 MG/10 ML VIAL IV SCH (09:41)
[2016-08-02] MEDS: HEPARIN SODIUM,PORCINE 5,000 UNIT/ML 1 ML VIAL SQ SCH (09:41)
--- NOTE | 2016-08-02 10:48 | P.PN ---
Subjective Progress note dated 08/01/2016 This is a 76-year-old patient who was seen again on August 01 as well as on the third. Sitting up at the bedside. Doing relatively well. No acute distress. Saturations are excellent. Afebrile. NG tube in place. LEOBARDO drain remains in place. He is receiving TPN and lipids. Vital signs are very stable. He has no complaints today. Progress note dated 08/02/2016 This a 76-year-old gentleman who was doing better. Here in the hospital he has had a history of small bowel obstruction by basilar pneumonia has a history of TIA gastric outlet obstruction and mental retardation. Currently still getting TPN. From the pulmonary standpoint the patient stable. We'll review labs x- rays medications. We'll likely sign off and see on a when necessary basis. Feel free to call us back should he have any additional pulmonary issues. Objective - Vital Signs Vital signs: Vital Signs Temp 98.8 F 08/02/16 07:59 Pulse 63 08/02/16 07:59 Resp 16 08/02/16 07:59 BP 120/69 08/02/16 07:59 Pulse Ox 95 08/02/16 07:59 Intake & Output 08/01/16 08/02/16 08/02/16 18:59 06:59 18:59 Intake Total 450 300 380 Output Total 30 20 Balance 420 280 380 Intake: IV 450 300 Levofloxacin 750Mg-D5w 150 Pmx 750 mg In Dextrose/ Water 1 150ml.bag @ 100 mls/hr IVPB Q24HR [facility] Rx# :[id number] Sodium Chloride 0.9% 1, 200 300 000 ml @ 100 mls/hr IV . Q10H [facility] Rx#:[id number] metroNIDAZOLE-NS PMX 500 100 mg In Saline 1 100ml.bag @ 100 mls/hr IVPB Q8HR [facility] Rx#:[id number] Oral 380 Output: Drainage 30 20 Abdomen 30 20 Other: Voiding Method Toilet Toilet # Voids 1 1 1 # Bowel Movements 1 - Exam No acute distress, oriented 3. HEENT examination is grossly unremarkable. Mucous membranes are moist. He's had a left facial droop. Neck supple. Full range of motion. No adenopathy or thyromegaly. Neck veins are flat. Cardiovascular examination reveals regular rhythm rate. S1-S2 normal. Lungs reveal a few scattered mild rhonchi. No wheezes. No crackles. Abdomen soft bowel sounds are heard. Extremities are intact. - Labs CBC & Chem 7: 08/01/16 07:00 08/02/16 07:00 Labs: Abnormal Lab Results - Last 24 Hours (Table) 08/01/16 08/02/16 Range/Units 12:16 07:00 POC Glucose (mg/dL) 109 H (75-99) mg/dL Calcium 7.7 L (8.4-10.2) mg/dL Albumin 2.1 L (3.5-5.0) g/dL Assessment and Plan (1) Pneumonia of both lower lobes Status: Acute (2) Small bowel obstruction Status: Acute (3) Transient ischemic attack (TIA) Status: Acute (4) Gastric outlet obstruction Status: Acute (5) Pneumonia Status: Acute (6) Mental retardation Status: Chronic Plan: Plan dated 08/01/2016 The patient was seen and evaluated. Medications labs are all reviewed. He seems very stable from the pulmonary standpoint for. From our perspective could be discharged. There may be some other issues keeping him here in the hospital. No issues mentioned test today. Seems pretty stable. Plan dated 08/02/2016 The patient stable from the pulmonary standpoint. We'll see as needed. Labs x- rays medications are reviewed. Adjustments are made. Please free to call us back should he have any new or ongoing pulmonary issues. Time with Patient: Less than 30
--- NOTE | 2016-08-02 11:57 | P.DS ---
Providers Date of admission: 07/23/16 11:25 Expected date of discharge: 08/02/16 Attending physician: Denton Barker Consults: 07/24/16 10:34 Consult Physician Routine Consulting Provider: Francisco Hernandez Consult Reason/Comments: Code Stroke Do you want consulting provider notified?: Yes 07/24/16 18:30 Consult Physician Routine Consulting Provider: Delano Villasenor Consult Reason/Comments: Recent ab. surgery, clearance of asprin, paient known to you Do you want consulting provider notified?: Yes Primary care physician: Rosie Ozuna Hospital Course: Discharge diagnosis 1. 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 Status post EGD showing patent gastrojejunostomy, patent pylorus and bilious fluid in stomach. During this admission, patient underwent exposure laparotomy with lysis of adhesions and enteral enterostomy on 07/27/2016. He is currently on liquid diet. 2. Right facial droop with suspected TIA: Seen and evaluated by neurology. 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 Computed tomography scan of the brain showed no acute intracranial process. Echocardiogram of the heart and carotid Doppler normal for his age. We'll hold on starting aspirin until patient evaluated by surgery in the outpatient setting 3. Possible aspiration pneumonia: Finished 7 day course of IV Levaquin and Flagyl 4. Developmental delay/mental retardation 5. DVT prophylaxis with subcu heparin 6. Severe protein calorie malnutrition Hospital course This is a 76-year-old gentleman with past medical history significant for developmental delay/mental retardation who was recently discharged from the hospital after he underwent a laparoscopic loop gastrojejunostomy secondary to gastric outlet obstruction. Patient was discharged home in a stable condition. He is a very poor historian and most of the history was obtained by chart review and nursing staff report. Apparently he was having worsening epigastric discomfort and nausea for the past several days. Yesterday he was noted to have persistent vomiting and he was brought into the emergency room and was found to have evidence of small bowel obstruction on computed tomography scan of the abdomen. He was admitted to the hospital initially under surgery but overnight, patient noticed to have a left facial droop and a code stroke was called. Computed tomography scan of the brain was unremarkable. Patient was seen by neurology. He was diagnosed with possible TIA. They are recommending starting aspirin once cleared by surgery to initiate it. Patient will be evaluated by surgery on August 09, 2016. At that time they can assess if patient is able to start aspirin. Patient also had pneumonia during this admission and completed antibiotics during hospitalization. He had an EGD showing patent gastrojejunostomy, patent pylorus and bilious fluid in stomach. During this admission, patient underwent exploratory laparotomy with lysis of adhesions and enteral enterostomy on 07/27/2016. Patient is currently tolerating diet. Surgery has cleared him for discharge and he'll follow-up with him in the office. Patient is medically stable for discharge. Please refer to chart for any further details. Patient Condition at Discharge: Stable Plan - Discharge Summary New Discharge Prescriptions: HYDROcodone/APAP 7.5-325MG [[place] 7.5-325] 1 tab PO Q6HR PRN #28 tab PRN Reason: Pain Discharge Medication List Pantoprazole [Protonix] 40 mg PO AC-BID #60 tablet.dr 07/16/16 [Rx] Ensure 1 can PO AC-TID 07/23/16 [History] HYDROcodone/APAP 7.5-325MG [[place] 7.5-325] 1 tab PO Q6HR PRN #28 tab 08/02/16 [ Rx] Follow up Appointment(s)/Referral(s): Rosie Ozuna MD [Primary Care Provider] - 08/06/16 9:30 am Delano Villasenor MD [STAFF PHYSICIAN] - 08/09/16 3:50 pm Patient Instructions/Handouts: Exploratory Laparotomy (DC), Staple Care (DC) Activity/Diet/Wound Care/Special Instructions: [facility] home [phone] No heavy lifting, pushing, or pulling items greater than 10 pounds. Soft regular diet Shower daily, no soaking in bath tubs, pools, or hot tubs. No driving while taking pain medication. Notify surgeon with any signs or symptoms of infection, increased pain, or not tolerating diet. Discharge Disposition: HOME WITH HOME HEALTH SERVICES
== END 2016-08-02 14:30 | disposition home health service (06) | DRG 335 ==
LOC: EC 08:42 → 3SUR 11:25 → 6SEL 07-24 06:09 → 3SUR 07-27 14:45
PROVIDERS: ADMIT Internal Medicine; ATTEND Internal Medicine
PROC: 0D9670Z Drainage of Stomach with Drainage Device, Via Natural or Artificial Opening (ICD-10-PCS; 2016-07-23)
PROC: 0DJ08ZZ Inspection of Upper Intestinal Tract, Via Natural or Artificial Opening Endoscopic (ICD-10-PCS; 2016-07-25)
PROC: 02HV33Z Insertion of Infusion Device into Superior Vena Cava, Percutaneous Approach (ICD-10-PCS; 2016-07-26)
PROC: B548ZZA Ultrasonography of Superior Vena Cava, Guidance (ICD-10-PCS; 2016-07-26)
PROC: 3E0436Z Introduction of Nutritional Substance into Central Vein, Percutaneous Approach (ICD-10-PCS; 2016-07-26)
PROC: 0JN80ZZ Release Abdomen Subcutaneous Tissue and Fascia, Open Approach (ICD-10-PCS; 2016-07-27)
PROC: 0DHA0UZ Insertion of Feeding Device into Jejunum, Open Approach (ICD-10-PCS; 2016-07-27)
PROC: 0DNV0ZZ Release Mesentery, Open Approach (ICD-10-PCS; principal; 2016-07-27 09:00)
DX: K56.5 Intestinal adhesions [bands] with obstruction (postinfection) (principal); E43 Unspecified severe protein-calorie malnutrition; J69.0 Pneumonitis due to inhalation of food and vomit; E87.2 Acidosis; E87.1 Hypo-osmolality and hyponatremia; G45.9 Transient cerebral ischemic attack, unspecified; F89 Unspecified disorder of psychological development; F79 Unspecified intellectual disabilities; I69.392 Facial weakness following cerebral infarction; Z87.01 Personal history of pneumonia (recurrent); Z93.3 Colostomy status; Z79.2 Long term (current) use of antibiotics; Z79.899 Other long term (current) drug therapy
CPT/HCPCS: 36415; 36569; 43235; 70450; 71010; 71020; 74020; 74177; 76937; 77001; 80048; 80053; 80061; 82040; 82150; 82330; 82550; 82553; 83036; 83090; 83605; 83690; 83735; 84100; 84132; 84478; 84484; 85025; 85610; 85730; 87040; 93005; 93306; 93880; 94760; 95816; 96361; 96365; 96366; 96367; 96375; 99285

== ENCOUNTER 2016-08-16 23:25 | Inpatient (IN) | payer MEDICARE, BC ==
[2016-08-17] MEDS ORDERED: NALOXONE 0.4 MG/ML 1 ML VIAL IV PRN (00:16)
[2016-08-17] MEDS ORDERED: ACETAMINOPHEN TAB 325 MG TAB PO PRN (00:16)
[2016-08-17] MEDS ORDERED: ONDANSETRON 4 MG/2 ML VIAL IVP PRN (00:16)
[2016-08-17] MEDS ORDERED: DOCUSATE 100 MG CAP PO PRN (00:16)
[2016-08-17] MEDS ORDERED: MORPHINE SULFATE 4 MG/ML SYRINGE IV PRN (00:16)
[2016-08-17] MEDS ORDERED: HYDROcodone/APAP 5-325MG 1 EACH TAB PO PRN (00:16)
--- NOTE | 2016-08-17 00:21 | ED ---
SOB HPI - General Chief Complaint: Shortness of Breath Stated Complaint: PE Time Seen by Provider: 08/16/16 23:30 Source: patient, EMS Mode of arrival: EMS - History of Present Illness Initial Comments: This patient is a 76-year-old man transferred from the outside hospital where he had gone for having shortness of breath. He is found to have pulmonary embolus on the CT that was done there. He received heparin and transferred here with heparin drip. The patient is denying significant pain. He states that his shortness of breath is better with the oxygen and remaining still. Complaint: shortness of breath -: hour(s) Consistency: constant Improves With: oxygen Worsens With: nothing - Related Data Home Medications Medication Instructions Recorded Confirmed Ensure 1 can PO AC-TID 07/23/16 08/16/16 Previous Rx's Medication Instructions Recorded Pantoprazole [Protonix] 40 mg PO DAILY #60 tablet. 08/19/16 Rivaroxaban [Xarelto] 15 mg PO BID #42 tab 08/19/16 Rivaroxaban [Xarelto] 20 mg PO HS #30 tab 08/19/16 Allergies Allergy/AdvReac Type Severity Reaction Status Date / Time No Known Allergies Allergy Verified 08/16/16 23:53 Review of Systems ROS Statement: Those systems with pertinent positive or pertinent negative responses have been documented in the HPI. ROS Other: All systems not noted in ROS Statement are negative. Constitutional: Denies: fever, chills Respiratory: Reports: dyspnea. Denies: cough, hemoptysis Cardiovascular: Denies: chest pain, palpitations, edema, syncope Gastrointestinal: Denies: abdominal pain, vomiting, diarrhea Genitourinary: Denies: dysuria, hematuria Musculoskeletal: Denies: back pain Skin: Denies: rash Neurological: Denies: headache Hematological/Lymphatic: Reports: other (On heparin). Denies: easy bleeding Past Medical History Past Medical History: Pneumonia Additional Past Medical History / Comment(s): ALLERGIES/\\SEASONAL SISTER DENIES ANY HEALTH PROBLEMS History of Any Multi-Drug Resistant Organisms: None Reported Additional Past Surgical History / Comment(s): TOENAILS, gastrojejunostomy for outlet obstruction Past Anesthesia/Blood Transfusion Reactions: No Reported Reaction Additional Past Anesthesia/Blood Transfusion Reaction / Comment(s): NEVER HAD ANESTHESIA Past Psychological History: No Psychological Hx Reported Additional Psychological History / Comment(s): EXCITABLE. Smoking Status: Never smoker Past Alcohol Use History: None Reported Past Drug Use History: None Reported - Past Family History Father Family Medical History: CVA/TIA Additional Family Medical History / Comment(s): "HEART DISEASE" General Exam Limitations: no limitations General appearance: alert, in no apparent distress Head exam: Present: atraumatic Eye exam: Present: normal appearance. Absent: scleral icterus, conjunctival injection Neck exam: Present: normal inspection Respiratory exam: Present: normal lung sounds bilaterally. Absent: respiratory distress, wheezes, rales, rhonchi, stridor, chest wall tenderness Cardiovascular Exam: Present: regular rate, normal rhythm, normal heart sounds. Absent: systolic murmur, diastolic murmur, rubs, gallop GI/Abdominal exam: Present: soft. Absent: distended, tenderness, guarding, rebound Extremities exam: Present: normal inspection, normal capillary refill. Absent: pedal edema, calf tenderness Back exam: Absent: CVA tenderness (R), CVA tenderness (L) Neurological exam: Present: alert Skin exam: Present: warm, dry, intact, normal color. Absent: rash Course Vital Signs 08/16/16 08/17/16 08/17/16 23:40 00:50 00:54 Temperature 96.8 F L 98.9 F Pulse Rate 83 86 Pulse Rate [ 73 Pulse Oximetery ] Respiratory 18 16 18 Rate Blood Pressure 124/66 114/56 Blood Pressure 129/65 [Left Arm] O2 Sat by Pulse 98 99 97 Oximetry 08/17/16 08/17/16 03:00 04:00 Temperature Pulse Rate 80 82 Pulse Rate [ Pulse Oximetery ] Respiratory 18 18 Rate Blood Pressure 126/66 118/67 Blood Pressure [Left Arm] O2 Sat by Pulse 98 98 Oximetry Medical Decision Making - Medical Decision Making Patient admitted for further treatment of acute pulmonary embolus. - Lab Data Result diagrams: 08/18/16 10:58 08/18/16 04:17 - EKG Data -: EKG Interpreted by [facility] EKG shows normal: sinus rhythm, intervals (Normal), QRS complexes (Normal) Rate: normal (Rate 79 bpm) Interpretation: nonspecific ST-T wave changes Disposition Clinical Impression: Pulmonary embolus Disposition: ADMITTED IP TO THIS [facility] Condition: Fair
[2016-08-17] MEDS: HEPARIN SODIUM,PORCINE/D5W PMX 25,000 UNIT in DEXTROSE/WATER 1 500ML.BAG IV SCH ×2 (00:37→18:05)
[2016-08-17] MEDS: SODIUM CHLORIDE 0.9% 1,000 ML IV SCH (00:37)
[2016-08-17] MEDS ORDERED: NON-FORMULARY DRUG (Ensure 1 CAN) PO SCH (07:30)
[2016-08-17] MEDS ORDERED: FAMOTIDINE 20 MG TAB PO SCH (09:00)
[2016-08-17] MEDS ORDERED: AMOXICILLIN 500 MG CAP PO SCH (09:00)
[2016-08-17] MEDS ORDERED: CLARITHROMYCIN 500 MG TAB PO SCH (09:00)
[2016-08-17] MEDS: PANTOPRAZOLE 40 MG TABLET PO SCH ×2 (09:17→17:09)
[2016-08-17 09:38] LABS: Basophils % (A) 0 %; CH 30.1; CHCM 33.2; Eosinophils # (A) 0.1 k/uL (0-0.7); Eosinophils % (A) 1 %; HDW 2.79; HGB 11.6 gm/dL (13.0-17.5); Luc # (Auto) 0.14; Luc % (Auto) 3; Lymphocytes # (A) 0.8 k/uL (1.0-4.8); Lymphocytes % (A) 14 %; MCH 29.4 pg (25.0-35.0); MCHC 32.3 g/dL (31.0-37.0); MCV 91.1 fL (80.0-100.0); Mean Platelet Volume 7.1; Monocytes # (A) 0.5 k/uL (0-1.0); Monocytes % (A) 8 %; Neutrophils # (A) 4.3 k/uL (1.3-7.7); Neutrophils % (A) 73 %; RBC 3.95 m/uL (4.30-5.90); RDW 13.7 % (11.5-15.5); WBC 5.8 k/uL (3.8-10.6); WBC (Perox) 6.14
[2016-08-17 09:43] LABS: ALT 34 U/L (21-72); AST 17 U/L (17-59); Alkaline Phosphatase 74 U/L (38-126); Anion Gap 7 mmol/L; Blood Urea Nitrogen 12 mg/dL (9-20); Calcium 8.3 mg/dL (8.4-10.2); Carbon Dioxide 27 mmol/L (22-30); Chloride 102 mmol/L (98-107); Glucose 101 mg/dL (74-99); Non-African American GFR(MDRD) >60 (>60 ml/min/1.73 sqM); Potassium 3.6 mmol/L (3.5-5.1); Sodium 136 mmol/L (137-145); Total Bilirubin 0.6 mg/dL (0.2-1.3); Total Protein 5.4 g/dL (6.3-8.2)
--- NOTE | 2016-08-17 13:26 | P.HPIM ---
History of Present Illness H&P Date: 08/17/16 Chief Complaint: Shortness of breath This is a 76-year-old male with a known past medical history of developmental delay and mental retardation. Patient has had 2 surgical procedures recently. He had an exploratory laparoscopy loop gastrojejunostomy for gastric outlet obstruction. And then had exploratory laparotomy with lysis of adhesions on . Patient is a poor historian due to the fact that he is unable to communicate secondary to his mental retardation. Per ER reports from [place]. Patient's sister was concerned of him having shortness of breath and brought him into [facility]. They did a computed tomography scan of the chest due to an elevated d-dimer of 5.9H and it was positive for pulmonary embolus. He was therefore placed on IV heparin and transferred to [facility] for further workup. The ER report from [place] had reported patient had worsening shortness of breath of the last 3 hours. Patient currently lying in bed comfortably. He reports he just to shortness of breath and yesterday chest pain. Otherwise difficult to obtain any other review of systems. Labs from [facility] does receives 8.68 hemoglobin 13.1 platelets 12 and 21 sodium 136 potassium 4.2 BUN 14 creatinine 0.6 d-dimer of 5.98 EKG shows normal sinus rhythm with PACs Review of Systems Please refer to HPI otherwise unremarkable Past Medical History Past Medical History: Pneumonia Additional Past Medical History / Comment(s): ALLERGIES/\\SEASONAL SISTER DENIES ANY HEALTH PROBLEMS History of Any Multi-Drug Resistant Organisms: None Reported Additional Past Surgical History / Comment(s): TOENAILS, gastrojejunostomy for outlet obstruction Past Anesthesia/Blood Transfusion Reactions: No Reported Reaction Additional Past Anesthesia/Blood Transfusion Reaction / Comment(s): NEVER HAD ANESTHESIA Past Psychological History: No Psychological Hx Reported Additional Psychological History / Comment(s): EXCITABLE. Smoking Status: Never smoker Past Alcohol Use History: None Reported Past Drug Use History: None Reported - Past Family History Father Family Medical History: CVA/TIA Additional Family Medical History / Comment(s): "HEART DISEASE" Medications and Allergies Home Medications Medication Instructions Recorded Confirmed Type Ensure 1 can PO AC-TID 07/23/16 08/16/16 History Amoxicillin 1,000 mg PO Q12HR 08/16/16 08/16/16 History Clarithromycin [Biaxin] 500 mg PO Q12HR 08/16/16 08/16/16 History HYDROcodone/APAP 7.5-325MG [[place] 1 - 2 tab PO Q4H PRN 08/16/16 08/16/16 History 7.5-325] Allergies Allergy/AdvReac Type Severity Reaction Status Date / Time No Known Allergies Allergy Verified 08/16/16 23:53 Physical Exam Vitals: Vital Signs Temp Pulse Pulse Resp BP BP Pulse Ox 08/17/16 11:51 98.1 F 70 18 114/67 98 08/17/16 08:00 98.7 F 77 18 123/58 97 08/17/16 04:00 82 18 118/67 98 08/17/16 03:00 80 18 126/66 98 08/17/16 00:54 86 18 114/56 97 08/17/16 00:50 98.9 F 73 16 129/65 99 Intake and Output 08/16/16 08/17/16 08/17/16 22:59 06:59 14:59 Intake Total 120 631.838 Balance 120 631.838 Intake: Intake, IV Titration 191.838 Amount Heparin Sodium,Porcine/ 191.838 D5w Pmx 25,000 unit In Dextrose/Water 1 500ml. bag @ 18 UNITS/KG/HR 24. 49 mls/hr IV .[id number] [facility] Rx#:[id number] Oral 120 440 Other: Voiding Method Toilet Weight 68 kg Head normocephalic Neck supple Lungs clear to auscultation bilaterally no wheezing or crackles Heart regular rate and rhythm S1-S2, no rub or gallop Abdomen is soft nontender nondistended positive bowel sounds no hepatosplenomegaly Extremities no edema Neuro alert and orientated to 3 Results CBC & Chem 7: 08/17/16 06:46 08/17/16 06:46 Labs: Abnormal Lab Results - Last 24 Hours (Table) 08/17/16 08/17/16 08/17/16 Range/Units 06:46 06:46 06:46 RBC 3.95 L (4.30-5.90) m/uL Hgb 11.6 L (13.0-17.5) gm/dL Hct 36.0 L (39.0-53.0) % Lymphocytes # 0.8 L (1.0-4.8) k/uL APTT 37.6 H (22.0-30.0) sec Sodium 136 L (137-145) mmol/L Creatinine 0.60 L (0.66-1.25) mg/dL Glucose 101 H (74-99) mg/dL Calcium 8.3 L (8.4-10.2) mg/dL Total Protein 5.4 L (6.3-8.2) g/dL Albumin 2.7 L (3.5-5.0) g/dL Thrombosis Risk Factor Assmnt - Choose All That Apply Each Risk Factor Represents 3 Points: Age 75 years or older Other congenital or acquired thrombophilia - If yes, enter type in comment: No Thrombosis Risk Factor Assessment Total Risk Factor Score: 3 Thrombosis Risk Factor Assessment Level: Moderate Risk Assessment and Plan Plan: 1. Acute pulmonary emboli : patient started on IV heparin. We'll have major case detective check to see Xarelto is covered for patient for oral anticoagulation 2. Recent abdominal surgeries: Exploratory laparoscopy with loop gastrojejunostomy for gastric outlet obstruction in May 2016 and exploratory laparotomy with lysis of adhesions and internal enterostomy on 07/27. Surgical service has been consulted 3. Developmental delay and mental retardation 4. Severe protein calorie malnutrition add ensure GI prophylaxis Protonix and DVT prophylaxis IV heparin Time with Patient: Greater than 30 (Greater than 50% of the total time spent in counseling and coordination of care. I performed an examination of the patient and discussed their management with the physician Student Finance Advisor. I have reviewed the Physician Student Finance Advisor's notes and agree with the documented findings and plan of care)
--- NOTE | 2016-08-17 16:46 | P.GSCN ---
History of Present Illness Consult date: 08/17/16 Reason for Consult: Patient known to Dr. Covington Requesting physician: Tyrese Carvajal History of present illness: Patient is a 76-year-old male with medical history significant developmental delay and mental retardation. Patient recently underwent exploratory laparoscopy loop gastrojejunostomy for gastric outlet obstruction on 07/10/2016 with exploratory laparotomy with lysis of adhesions on 07/27/2016. Patient is a poor historian so most of information is taken from the chart. Apparently patient was having shortness of breath with evidence of pulmonary embolism. Patient is currently on IV heparin. Upon examination, patient denies nausea, vomiting, or abdominal pain. Afebrile. No evidence of leukocytosis. Past Medical History Past Medical History: Pneumonia Additional Past Medical History / Comment(s): ALLERGIES/\\SEASONAL SISTER DENIES ANY HEALTH PROBLEMS History of Any Multi-Drug Resistant Organisms: None Reported Additional Past Surgical History / Comment(s): TOENAILS, gastrojejunostomy for outlet obstruction Past Anesthesia/Blood Transfusion Reactions: No Reported Reaction Additional Past Anesthesia/Blood Transfusion Reaction / Comm: NEVER HAD ANESTHESIA Past Psychological History: No Psychological Hx Reported Additional Psychological History / Comment(s): EXCITABLE. Smoking Status: Never smoker Past Alcohol Use History: None Reported Past Drug Use History: None Reported - Past Family History Father Family Medical History: CVA/TIA Additional Family Medical History / Comment(s): "HEART DISEASE" Medications and Allergies Home Medications Medication Instructions Recorded Confirmed Type Ensure 1 can PO AC-TID 07/23/16 08/16/16 History Amoxicillin 1,000 mg PO Q12HR 08/16/16 08/16/16 History Clarithromycin [Biaxin] 500 mg PO Q12HR 08/16/16 08/16/16 History HYDROcodone/APAP 7.5-325MG [[place] 1 - 2 tab PO Q4H PRN 08/16/16 08/16/16 History 7.5-325] Allergies Allergy/AdvReac Type Severity Reaction Status Date / Time No Known Allergies Allergy Verified 08/16/16 23:53 Surgical - Exam Vital Signs Temp Pulse Resp BP Pulse Ox 96.8 F L 83 18 124/66 98 08/16/16 23:40 08/16/16 23:40 08/16/16 23:40 08/16/16 23:40 08/16/16 23:40 GENERAL: Pt awake and alert, well-appearing, well-nourished, and in no acute distress. ABDOMEN: Soft, nontender, nondistended, normoactive bowel sounds. No guarding, no rebound. No masses or organomegaly appreciated. Surgical incisions well- healed. Results - Labs 08/17/16 06:46 08/17/16 06:46 Abnormal Lab Results - Last 24 Hours (Table) 08/17/16 08/17/16 08/17/16 Range/Units 06:46 06:46 06:46 RBC 3.95 L (4.30-5.90) m/uL Hgb 11.6 L (13.0-17.5) gm/dL Hct 36.0 L (39.0-53.0) % Lymphocytes # 0.8 L (1.0-4.8) k/uL APTT 37.6 H (22.0-30.0) sec Sodium 136 L (137-145) mmol/L Creatinine 0.60 L (0.66-1.25) mg/dL Glucose 101 H (74-99) mg/dL Calcium 8.3 L (8.4-10.2) mg/dL Total Protein 5.4 L (6.3-8.2) g/dL Albumin 2.7 L (3.5-5.0) g/dL 08/17/16 Range/Units 14:49 RBC (4.30-5.90) m/uL Hgb (13.0-17.5) gm/dL Hct (39.0-53.0) % Lymphocytes # (1.0-4.8) k/uL APTT 47.4 H (22.0-30.0) sec Sodium (137-145) mmol/L Creatinine (0.66-1.25) mg/dL Glucose (74-99) mg/dL Calcium (8.4-10.2) mg/dL Total Protein (6.3-8.2) g/dL Albumin (3.5-5.0) g/dL Diabetes panel 08/17/16 Range/Units 06:46 Sodium 136 L (137-145) mmol/L Potassium 3.6 (3.5-5.1) mmol/L Chloride 102 (98-107) mmol/L Carbon Dioxide 27 (22-30) mmol/L BUN 12 (9-20) mg/dL Creatinine 0.60 L (0.66-1.25) mg/dL Glucose 101 H (74-99) mg/dL Calcium 8.3 L (8.4-10.2) mg/dL AST 17 (17-59) U/L ALT 34 (21-72) U/L Alkaline Phosphatase 74 (38-126) U/L Total Protein 5.4 L (6.3-8.2) g/dL Albumin 2.7 L (3.5-5.0) g/dL Calcium panel 08/17/16 Range/Units 06:46 Calcium 8.3 L (8.4-10.2) mg/dL Albumin 2.7 L (3.5-5.0) g/dL Pituitary panel 08/17/16 Range/Units 06:46 Sodium 136 L (137-145) mmol/L Potassium 3.6 (3.5-5.1) mmol/L Chloride 102 (98-107) mmol/L Carbon Dioxide 27 (22-30) mmol/L BUN 12 (9-20) mg/dL Creatinine 0.60 L (0.66-1.25) mg/dL Glucose 101 H (74-99) mg/dL Calcium 8.3 L (8.4-10.2) mg/dL Adrenal panel 08/17/16 Range/Units 06:46 Sodium 136 L (137-145) mmol/L Potassium 3.6 (3.5-5.1) mmol/L Chloride 102 (98-107) mmol/L Carbon Dioxide 27 (22-30) mmol/L BUN 12 (9-20) mg/dL Creatinine 0.60 L (0.66-1.25) mg/dL Glucose 101 H (74-99) mg/dL Calcium 8.3 L (8.4-10.2) mg/dL Total Bilirubin 0.6 (0.2-1.3) mg/dL AST 17 (17-59) U/L ALT 34 (21-72) U/L Alkaline Phosphatase 74 (38-126) U/L Total Protein 5.4 L (6.3-8.2) g/dL Albumin 2.7 L (3.5-5.0) g/dL Assessment and Plan Plan: Impression: 1. Pulmonary embolism. 2. History of exploratory laparotomy with lysis of adhesions and enteral enterostomy on 07/27/2016 with history of small bowel and gastric outlet obstruction secondary to scarring of gastric jejunostomy. 3. History of gastric outlet obstruction status post exploratory laparoscopy and loop gastrojejunostomy on 07/10/2016. Plan: Continue medical management by medical team. Patient is not a surgical candidate at this time. The above impression and plan have been discussed and directed by Dr. Villasenor. Charissa AGUIRRE acting as scribe for Dr. Villasenor.
[2016-08-17 21:05] VITALS: RESP 16
[2016-08-17] MEDS ORDERED: HEPARIN SODIUM,PORCINE/D5W PMX 25,000 UNIT in DEXTROSE/WATER 1 500ML.BAG IV SCH (21:45)
[2016-08-17] MEDS ORDERED: HEPARIN SODIUM,PORCINE 10,000 UNIT/ML 1 ML VIAL IV PRN (21:45)
[2016-08-17 22:32] LABS: Basophils % (A) 1 %; CH 30.3; CHCM 33.9; Eosinophils # (A) 0.1 k/uL (0-0.7); Eosinophils % (A) 1 %; HCT 35.3 % (39.0-53.0); HDW 2.89; HGB 11.9 gm/dL (13.0-17.5); Luc # (Auto) 0.15; Luc % (Auto) 2; Lymphocytes # (A) 0.9 k/uL (1.0-4.8); Lymphocytes % (A) 15 %; MCH 30.4 pg (25.0-35.0); MCHC 33.7 g/dL (31.0-37.0); MCV 90.1 fL (80.0-100.0); Mean Platelet Volume 7.1; Monocytes # (A) 0.5 k/uL (0-1.0); Monocytes % (A) 8 %; Neutrophils # (A) 4.5 k/uL (1.3-7.7); Neutrophils % (A) 73 %; RBC 3.92 m/uL (4.30-5.90); RDW 13.4 % (11.5-15.5); WBC 6.2 k/uL (3.8-10.6)
[2016-08-18] MEDS: SODIUM CHLORIDE 0.9% 1,000 ML IV SCH (01:44)
[2016-08-18 04:36] LABS: Basophils % (A) 0 %; CH 30.1; CHCM 33.7; Eosinophils # (A) 0.1 k/uL (0-0.7); Eosinophils % (A) 1 %; HCT 34.7 % (39.0-53.0); HDW 2.87; HGB 11.4 gm/dL (13.0-17.5); Luc # (Auto) 0.17; Luc % (Auto) 3; Lymphocytes # (A) 0.7 k/uL (1.0-4.8); Lymphocytes % (A) 11 %; MCH 29.5 pg (25.0-35.0); MCHC 32.9 g/dL (31.0-37.0); MCV 89.7 fL (80.0-100.0); Mean Platelet Volume 6.5; Monocytes # (A) 0.5 k/uL (0-1.0); Monocytes % (A) 7 %; Neutrophils # (A) 5.2 k/uL (1.3-7.7); Neutrophils % (A) 78 %; RBC 3.87 m/uL (4.30-5.90); RDW 13.4 % (11.5-15.5); WBC 6.7 k/uL (3.8-10.6); WBC (Perox) 6.87
[2016-08-18 04:46] LABS: Anion Gap 8 mmol/L; Blood Urea Nitrogen 15 mg/dL (9-20); Carbon Dioxide 26 mmol/L (22-30); Chloride 103 mmol/L (98-107); Glucose 108 mg/dL (74-99); INR 1.2 (<1.1); Non-African American GFR(MDRD) >60 (>60 ml/min/1.73 sqM); Partial Thromboplastin Time 38.6 sec (22.0-30.0); Potassium 3.5 mmol/L (3.5-5.1); Prothrombin Time 12.3 sec (9.0-12.0); Sodium 137 mmol/L (137-145)
[2016-08-18] MEDS: PANTOPRAZOLE 40 MG TABLET PO SCH ×2 (06:13→16:51)
--- NOTE | 2016-08-18 11:01 | P.PN ---
Progress Note - Text The patient is resting in his room comfortable. He has no complaints of abdominal pain. He does not appear to be short of breath. On exam his vital signs are stable. His abdomen soft. Pulmonary embolus. Patient will be managed medically.
[2016-08-18 11:07] VITALS: BMI 23.1
[2016-08-18 11:17] LABS: Mean Platelet Volume 6.4
--- NOTE | 2016-08-18 12:28 | P.PN ---
Subjective Patient is doing well today. He does not have any specific concerns. Objective - Vital Signs Vital signs: Vital Signs Temp 97.7 F 08/18/16 11:05 Pulse 77 08/18/16 11:05 Resp 16 08/18/16 11:05 BP 107/55 08/18/16 11:05 Pulse Ox 98 08/18/16 11:05 Intake & Output 08/17/16 08/18/16 08/18/16 18:59 06:59 18:59 Intake Total 1360.164 354.224 120 Output Total 375 Balance 1360.164 -20.776 120 Weight 67.1 kg 67.1 kg Intake: IV 200 Heparin Sodium,Porcine/ 200 D5w Pmx 25,000 unit In Dextrose/Water 1 500ml. bag @ 18 UNITS/KG/HR 24. 48 mls/hr IV .[id number] [facility] Rx#:[id number] Intake, IV Titration 640.164 154.224 Amount Heparin Sodium,Porcine/ 154.224 D5w Pmx 25,000 unit In Dextrose/Water 1 500ml. bag @ 18 UNITS/KG/HR 24. 48 mls/hr IV .[id number] [facility] Rx#:[id number] Heparin Sodium,Porcine/ 480.164 D5w Pmx 25,000 unit In Dextrose/Water 1 500ml. bag @ 18 UNITS/KG/HR 24. 49 mls/hr IV .[id number] [facility] Rx#:[id number] Sodium Chloride 0.9% 1, 160 000 ml @ 20 mls/hr IV . Q24H [facility] Rx#:[id number] Oral 720 120 Output: Urine 375 Other: Voiding Method Toilet Toilet Toilet # Voids 1 1 # Bowel Movements 1 - Exam General: The patient is awake and alert, in no distress Eye: there is normal conjunctiva bilaterally. Neck: The neck is supple, there is no JVD. Cardiovascular: Normal S1-S2, no S3-S4, no murmurs. Respiratory: Lungs clear to auscultation bilaterally Gastrointestinal: Abdomen is soft, nontender Musculoskeletal: There is no pedal edema. Neurological:. Speech is normal. Skin: Skin is warm and dry - Labs CBC & Chem 7: 08/18/16 10:58 08/18/16 04:17 Labs: Abnormal Lab Results - Last 24 Hours (Table) 08/17/16 08/17/16 08/17/16 Range/Units 14:49 21:58 21:58 RBC 3.92 L (4.30-5.90) m/uL Hgb 11.9 L (13.0-17.5) gm/dL Hct 35.3 L (39.0-53.0) % Lymphocytes # 0.9 L (1.0-4.8) k/uL PT (9.0-12.0) sec APTT 47.4 H 49.8 H (22.0-30.0) sec Creatinine (0.66-1.25) mg/dL Glucose (74-99) mg/dL Calcium (8.4-10.2) mg/dL 08/18/16 08/18/16 08/18/16 Range/Units 04:17 04:17 04:17 RBC 3.87 L (4.30-5.90) m/uL Hgb 11.4 L (13.0-17.5) gm/dL Hct 34.7 L (39.0-53.0) % Lymphocytes # 0.7 L (1.0-4.8) k/uL PT 12.3 H (9.0-12.0) sec APTT 38.6 H (22.0-30.0) sec Creatinine 0.55 L (0.66-1.25) mg/dL Glucose 108 H (74-99) mg/dL Calcium 8.0 L (8.4-10.2) mg/dL 08/18/16 Range/Units 10:53 RBC (4.30-5.90) m/uL Hgb (13.0-17.5) gm/dL Hct (39.0-53.0) % Lymphocytes # (1.0-4.8) k/uL PT (9.0-12.0) sec APTT 75.1 H (22.0-30.0) sec Creatinine (0.66-1.25) mg/dL Glucose (74-99) mg/dL Calcium (8.4-10.2) mg/dL Assessment and Plan Plan: 1. Acute pulmonary emboli : patient started on IV heparin. Rivaroxaban and is most likely approved by his insurance. I would discuss with family members discharge planning. Patient will need at least 6 months of anticoagulation. 2. Recent abdominal surgeries: Exploratory laparoscopy with loop gastrojejunostomy for gastric outlet obstruction in May 2016 and exploratory laparotomy with lysis of adhesions and internal enterostomy on 07/27. Surgical service has been consulted. Patient is doing well 3. Developmental delay and mental retardation 4. Severe protein calorie malnutrition add ensure plan to discuss with family members discharge planning. Patient is unable to make his own decisions.
[2016-08-18] MEDS: RIVAROXABAN 15 MG TAB PO SCH (16:51)
[2016-08-19] MEDS: SODIUM CHLORIDE 0.9% 1,000 ML IV SCH (01:24)
[2016-08-19] MEDS: PANTOPRAZOLE 40 MG TABLET PO SCH (06:23)
[2016-08-19] MEDS: RIVAROXABAN 15 MG TAB PO SCH (06:23)
[2016-08-19 08:50] VITALS: PULSE 90
--- NOTE | 2016-08-19 10:10 | P.PN ---
Progress Note - Text The patient resting comfortably bed. He has no complaints. On exam his vital signs are stable. His abdomen soft. Pulmonary embolus continue medical management.
--- NOTE | 2016-08-19 12:13 | P.DS ---
Providers Date of admission: 08/17/16 00:17 Expected date of discharge: 08/19/16 Attending physician: Vianey Carpenter Primary care physician: Rosie Ozuna [facility] Hospital Course: This is a 76-year-old gentleman with past medical history noted below who was transferred from an outside hospital after he was evaluated in the emergency room over there and was found to have acute PE on computed tomography scan of the chest. Patient was started on IV heparin. He remained hemodynamically stable. He remained with good O2 saturation on room air. His anticoagulation was switched Rivaroxaban. Insurance approval. Patient will need to continue Rivaroxaban 15 mg twice daily for 21 days and 20 mg at bedtime thereafter. He will need to be on anticoagulation for at least 6 months. Below is a list of his medical problems addressed during this hospitalization 1. Acute pulmonary emboli: Patient will need at least 6 months of anticoagulation. 2. Recent abdominal surgeries: Exploratory laparoscopy with loop gastrojejunostomy for gastric outlet obstruction in May 2016 and exploratory laparotomy with lysis of adhesions and internal enterostomy on 07/27. Surgical service has been consulted. Patient is doing well 3. Developmental delay and mental retardation 4. Severe protein calorie malnutrition add ensure Patient Condition at Discharge: Fair Plan - Discharge Summary New Discharge Prescriptions: Rivaroxaban [Xarelto] 15 mg PO BID #42 tab Rivaroxaban [Xarelto] 20 mg PO HS #30 tab Discharge Medication List Ensure 1 can PO AC-TID 07/23/16 [History] Pantoprazole [Protonix] 40 mg PO DAILY #60 tablet. 08/19/16 [Rx] Rivaroxaban [Xarelto] 15 mg PO BID #42 tab 08/19/16 [Rx] Rivaroxaban [Xarelto] 20 mg PO HS #30 tab 08/19/16 [Rx] Follow up Appointment(s)/Referral(s): Rosie Ozuna MD [Primary Care Provider] - 1-2 days [facility] Visiting Nurse, [NON-STAFF] - Patient Instructions/Handouts: Soft Diet (DC) Activity/Diet/Wound Care/Special Instructions: Free starter pack Xarelto picked up from [facility] on . Discount 12 month coupon given to Marylou for activation for future refills. Copay is $99 per month without discount coupon. Discharge Disposition: HOME WITH HOME HEALTH SERVICES
[2016-08-19 12:56] VITALS: BP 126/63; TEMP 97.6
== END 2016-08-19 14:07 | disposition home health service (06) | DRG 175 ==
LOC: EC 23:25 → 3SUR 08-17 00:17 → 6SEL 08-17 10:45
PROVIDERS: ADMIT Internal Medicine; ATTEND Internal Medicine
DX: I26.99 Other pulmonary embolism without acute cor pulmonale (principal); E43 Unspecified severe protein-calorie malnutrition; I49.1 Atrial premature depolarization; J30.2 Other seasonal allergic rhinitis; F79 Unspecified intellectual disabilities; Z68.23 Body mass index [BMI] 23.0-23.9, adult; Z79.2 Long term (current) use of antibiotics; Z79.891 Long term (current) use of opiate analgesic; Z79.899 Other long term (current) drug therapy; Z82.3 Family history of stroke; Z82.49 Family history of ischemic heart disease and other diseases of the circulatory system; Z98.890 Other specified postprocedural states; Z87.01 Personal history of pneumonia (recurrent); Z87.19 Personal history of other diseases of the digestive system
CPT/HCPCS: 80048; 80053; 85025; 85049; 85610; 85730; 96365; 96366; 96375; 99285